=== PATIENT | male | born 1965 | race African-American/Black ===

== ENCOUNTER 2025-02-28 10:46 | Day surgery (SDC) | payer BC, SELFPAY ==
[2025-02-28] VITALS (7 sets, daily range): BP systolic 103–170; BP diastolic 68–88; PULSE 67–82; RESP 16–22; TEMP 36.9; O2SAT 100
--- NOTE | ~2025-02-28 | XR_ITS ---
Examination: XR chest 2V Clinical History: Retrosternal pain Comparison: None Technique: PA and Lateral Findings: Cardiomediastinal silhouette normal size and configuration. Lungs clear. No acute bony abnormality. IMPRESSION: 1. No acute cardiopulmonary findings. Reviewed, dictated and finalized at location R.
--- OUTSIDE RECORDS SUMMARY | 2025-02-28 11:14 | XMS_ITS | Clinical Summary ---
Author Organization [facility] Address [address] [place] [id number] Care Team Providers Care Executive Director Contract Shop Name Role Phone Andry Rooney MD Primary Care Provider Morales Prakash MD Unavailable [phone] Allergies No known active allergies Medications amLODIPine (NORVASC) 10 mg tabletIndications :Essential hypertension Take 1 tablet (10 mg total) by mouth daily 90 tablet 9 Active sildenafil, antihypertensive, (REVATIO) 20 mg tabletIndications :Pulmonary Arterial Hypertension Take 5 tablets (100 mg total) by mouth daily as needed (ED) 50 tablet 3 9 Active raNITIdine (ZANTAC) 150 mg tabletIndications :GERD without esophagitis Take 1 tablet (150 mg total) by mouth 2 (two) times a day 180 tablet 3 9 Active buPROPion XL (WELLBUTRIN XL) 150 mg 24 hr tabletIndications :Moderate episode of recurrent major depressive disorder (HCC) Take 1 tablet (150 mg total) by mouth every morning 30 tablet 1 9 Active ketorolac (ACULAR) 0.5 % ophthalmic solution 2 9 Active tobramycin-dexame thasone (TOBRADEX) ophthalmic solution 2 9 Active busPIRone (BUSPAR) 5 mg tabletIndications :Generalized Anxiety Disorder Take 1 tablet (5 mg total) by mouth 3 (three) times a day 90 tablet 9 Active Active Problems Problem Noted Date Diagnosed Date Cortical age-related cataract of both eyes 08/17 Assessment & Plan (10/18/2018 5:23 PM CDT): S/P surgery Assessment & Plan (08/17/2018 9:44 AM CDT): He is getting surgery soon Erectile dysfunction 08/17/2018 Assessment & Plan (08/17/2018 9:54 AM CDT): Start generic Sildenafil Moderate episode of recurrent major depressive d isorder 08/17/2018 Assessment & Plan (10/31/2018 10:57 AM CDT): ADvised to continue Wellbutrin; discussed has not taken full effect yet Add BUspar for anxiety Will extend FMLA with [employer] on 11/19 once paperwork received Assessment & Plan (10/18/2018 5:32 PM CDT): Mood is progressively worsening to the point of affecting daily function Will start Wellbutrin I advised him to start counseling as still dealing with the of his Recommend either EAP or SLBMI Will give 2 weeks off work [employer] 11/05 Will complete FMLA once received Assessment & Plan (08/17/2018 9:49 AM CDT): Worse since his in January Recommended Wellbutrin 1x daily-he declined but will consider in future Allergic rhinitis 07/20/2018 Gilbert's syndrome 07/20/2018 TMJ dysfunction 02/22/2017 Assessment & Plan (02/27/2017 3:40 PM CDT): History and examination today are consistent with right TMJ dysfunction. Patient is instructed on conservative therapies at this time, which include resting the joint by soft diet x 2 weeks, cold compress, change chewing pattern and consider dental guard at night to prevent clenching or bruxism. Follow up x 1 month. Sensorineural hearing loss ( SNHL) of right ear with restricted hearing of left ear 02/22/2017 Assessment & Plan (02/27/2017 3:43 PM CDT): Mr. De La Garza is a 51 year old male who presents with hearing loss in the right ear that he states has been present his entire life. He complains of new onset tinnitus in the right ear x 1 month. Patient denies any previous audiogram. Patient does not know any further history behind the hearing loss in his right ear. I recommend he complete an MRI of the IACs to rule out acoustic neuroma. We discussed setting up a hearing aid evaluation for CROS aid if patient desires. Patient is in agreement to complete MRI and then discuss hearing aid evaluation. Essential hypertension 07/13/2015 Overview (08/04/2016): Essential hypertension Assessment & Plan (10/18/2018 5:32 PM CDT): Will monitor Likely elevated from stress and having had surgery Assessment & Plan (08/17/2018 9:54 AM CDT): BP elevated Was on Norvasc in past-will resume Tobacco dependence syndrome 06/04/2012 Overview (08/04/2016): Tobacco abuse Assessment & Plan (08/17/2018 9:48 AM CDT): Patient was strongly encouraged to quit smoking. Serious health risks of continued smoking including multiple cancers, heart disease and lung disease were discussed with the patient. Patient is not ready to quit yet. Immunizations Immunization Administration Dates Next Due Influenza, Unspecified 08/17/2018(Deferred: Azul ent Refused) Td, adsorbed 03/10/2003 Tdap 06/04/2012 Surgical History Surgery Date Site/Laterality Comments EYE SURGERY CATARACT EXTRACTION, BILATERAL 05/01/2018 - 04/30/2019 Medical History Medical History Date Comments Hypertension Family History Medical History Relation Name Comments Heart disease Brother No Known Problems Father Breast cancer Mother Cancer, breast ; Relation Name Status Comments Brother Father Mother Social History Tobacco Use Types Packs/Day Years Used Date Smoking Tobacco: Some Days Smokeless Tobacco: Never Alcohol Use Standard Drinks/Week Comments Yes 20 (1 standard drink = 0.6 oz pu re alcohol) PHQ-2 Answer Date Recorded PHQ-2 Score 4 12/22/2018 Sex and Gender Information Value Date Recorded Sex Assigned at Not on file 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 Gender Identity Not on file Sexual Orientation Not on file Obstetrics History Last Filed Vital Signs Vital Sign Reading Time Taken Comments Blood Pressure 142/78 10/31/2018 10:24 AM CDT Pulse 86 10/31/2018 10:24 AM CDT Temperature 37.1 C (98.8 F) 10/18/2018 5:01 PM CDT Respiratory Rate 16 10/31/2018 10:24 AM CDT Oxygen Saturation 98% 10/31/2018 10:24 AM CDT Inhaled Oxygen Concentration - - Weight 75.8 kg (167 lb 2 oz) 10/31/2018 10:24 AM CDT Height 170.2 cm (5' 7) 10/31/2018 10:24 AM CDT Body Mass Index 26.18 10/31/2018 10:24 AM CDT Plan of Treatment Not on file Insurance PLAN Care Teams Executive Director Contract Shop Relationship Specialty Start Date End Date Andry Rooney MD [address] [facility] [address], [place] [id number] PCP - General Family Medicine 08/17/18 Morales Prakash MD [address] [facility] [address], [place] [address] Consulting Physician Ophthalmology 08/17/18
--- OUTSIDE RECORDS SUMMARY | 2025-02-28 11:14 | XMS_ITS | Clinical Summary ---
Author Organization [facility] Address [address] [place] [address] Care Team Providers Care Campaign Developer Name Role Phone Unavailable Primary Care Provider Unavailabl e Source Comments [facility],non-owned Affiliates and Associated Physician Practices is amultiple site organization consisting of ambulatory clinics and hospital sitesin [place], [place], [place] and [place]. This disclosure is being madepursuant to the Care Everywhere program and may not contain all information available regarding this patient. Last updated 18.[facility] Allergies No known active allergies Medications * Be aware that medications may not be up to date on this document. Alwaysverify current medications with the patient. naproxen (NAPROSYN) 500 MG tablet Take 1 tablet by mouth 2 times daily as needed for Pain 30 tablet 7 Active acetaminophen (TYLENOL) 325 MG tablet Take 325 mg by mouth every 4 hours as needed for Fever or Pain Maximum allowable Acetaminophen amount = 4 Grams (4000 mg) / 24 hours. Active Active Problems No known active problems Social History Tobacco Use Types Packs/Day Years Used Date Smoking Tobacco: Never Assessed Sex and Gender Information Value Date Recorded Sex Assigned at Not on file Legal Sex Male 5:42 PM CDT Gender Identity Not on file Sexual Orientation Not on file Last Filed Vital Signs Vital Sign Reading Time Taken Comments Blood Pressure 164/91 02/17/2017 5:55 PM CDT Pulse 65 02/17/2017 5:55 PM CDT Temperature 36.9 C (98.5 F) 02/17/2017 5:55 PM CDT Respiratory Rate 14 02/17/2017 5:55 PM CDT Oxygen Saturation 100% 02/17/2017 5:55 PM CDT Inhaled Oxygen Concentration - - Weight 81.6 kg (180 lb) 02/17/2017 5:55 PM CDT Height 170.2 cm (5' 7) 02/17/2017 5:55 PM CDT Body Mass Index 28.19 02/17/2017 5:55 PM CDT Plan of Treatment Health Maintenance Due Date Last Done Comments COLOGUARD (AGES 45-75) - COL ON CA SCREENING 1966 COLON MONITORING 1966 COLONOSCOPY - COLON CA SCREENING 1966 CT COLONOGRAPHY - COLON CA SCREENING 1966 Colorectal Cancer Screening 1966 FIT - COLON CA SCREENING 1966 FLEX SIG - COLON CA SCREENING 1966 LIPID TESTING 1966 HIV SCREENING 1981 HEPATITIS C SCREENING 10/04/1984 DTAP/TDAP/TD VACCINES (1 - Tdap) 1985 HEPATITIS B VACCINE (1 of 3 - 19+ 3-dose series) 1985 PNEUMOCOCCAL VACCINE 50+ (1 of 1 - PCV) 2016 ZOSTER VACCINE (1 of 2) 2016 DEPRESSION SCREENING 05/01/2024 COVID-19 VACCINE (1 - 2023-2 5 season) 2024 INFLUENZA VACCINE (#1) 2024 HIB VACCINE Aged Out No longer eligi ble based on patient's age to complete this topic HPV VACCINE Aged Out No longer eligi ble based on patient's age to complete this topic MENINGOCOCCAL (Group B) VACC INE SHARED DECISION-MAKING Aged Out No longer eligibl e based on patient's age to complete this topic MENINGOCOCCAL GROUPS A/C/Y/W VACCINE Aged Out No longer eligible b ased on patient's age to complete this topic Insurance [employer]
--- OUTSIDE RECORDS SUMMARY | 2025-02-28 11:14 | XMS_ITS | Clinical Summary ---
Author Organization [facility] Address [address] [place] [id number] Care Team Providers Care Life Insurance Sales Name Role Phone Unavailable Primary Care Provider Unavailabl e Encounters Date Type Department Care Team Description 12/31/2024 7:04 AM CDT - 12/31/2024 11:59 PM CDT Hospital Encounter [facility] [address] Pancho Garcia MD Discharge Disposition: Home or Self Care (Routine Discharge) from Last 3 Months Social History Tobacco Use Types Packs/Day Years Used Date Smoking Tobacco: Never Assessed Sex and Gender Information Value Date Recorded Sex Assigned at Male 01/02/2025 9:33 AM CDT Legal Sex Male 7:03 AM CDT Gender Identity Not on file Sexual Orientation Not on file Plan of Treatment Health Maintenance Due Date Last Done Comments Colorectal Cancer Screening Colonoscopy (10 Years) 1966 Annual Physical 1969 Hepatitis C 1984 DTaP, Tdap and Td Vaccines ( 1 - Tdap) 1985 Hepatitis B Vaccines (1 of 3 - 19+ 3-dose series) 1985 Pneumococcal Vaccine: 50+ Ye ars (1 of 1 - PCV) 2016 Zoster Vaccines (1 of 2) 2016 COVID-19 Vaccine ( - 2024-2 6 season) 2024 Influenza Adult (#1) 2025 Hepatitis A Vaccines Aged Out No long er eligible based on patient's age to complete this topic Meningococcal B Vaccine Aged Out No l onger eligible based on patient's age to complete this topic Meningococcal Vaccine Aged Out No christian austin eligible based on patient's age to complete this topic RSV Immunizations Under 20 Months Aged Out No longer eligible based on patient's age to complete this topic Procedures Procedure Name Priority Date/Time Associated Diagnosis Comments PATHOLOGY Routine 12/31/2024 12:00 AM CDT from Last 3 Months Results * Pathology (12/31/2024 12:00 AM CDT) PATHOLOGY [facility] Department of Laboratory Medicine [address] [place] [address] , extension [phone] Pathology Report Surgical Pathology Report Name: RAÚL DE LA GARZA Specimen #: [id number] Age: 6 1965 (Age: 59) Location: [facility] Sex: M Procedure Date: 12/31/2024 Hospital #: [id number] Date Received: 01/01/2025 Date Reported: 01/02/2025 Provider: PANCHO GARCIA Source: Skin, right scientology, biopsy Clinical History: Skin lesion right scientology. FINAL DIAGNOSIS: Skin, right scientology, punch biopsy: - Seborrheic keratosis. Gross Description: Received in formalin, labeled with a patient label and as right scientology is a 0.5 cm in diameter punch biopsy of granular dusky kemp-brown skin excised to a depth of up to 0.4 cm. The specimen is inked black, bisected, and entirely submitted in cassette 1 Gross examination (when applicable), interpretation, and sign out were performed at [facility], [address] [place] [address]. Electronically Signed Out TIERRA MONAE MD [facility] 12/31/2024 01/01/2025 12: 59 PM CDT Comment:Skin, right scientology, biopsy us Pancho Garcia MD PATHOLOGY/CYTOLOGY OR DERABLES Final Result [facility] [address] [place] [address], [id number] from Last 3 Months
--- OUTSIDE RECORDS SUMMARY | 2025-02-28 11:14 | XMS_ITS | Data Portability ---
Author Organization [place] [facility], Main Office Address [address] [place] [address] Assessment Encounter Date Assessment Date Assessment LastModified by Organization Details LastModified Time 12/31/2024 12/31/2024 Punch biopsy, 5mm, from irregular pigmented lesion of R hinduism area. Post procedural instructions provided. RTC in 7-10 d for suture removal, sooner if concerns arise. Not available 12/31/2024 12:35:03 01/07/2025 01/07/2025 status post punch biopsy right hinduism lesion. Benign pathology. No other issues. Suture removed. Follow-up p.r.n. Not available 01/07/2025 12:18:01 02/26/2025 02/26/2025 12/25/2024: PSA 2.44 Chol 214, LDL 108 WBC 4.0 01/15/2025: RPR +ve, T pallidum: Neg [email or web address] Not available 02/26/2025 11:51:41 Plan of Treatment Reminders Order Date Submit Date Provider Last Modified By Organization Details Last Modified Time Details Appointments Any 15 2024 11:30A M Jeniffer noonan MD Not available Not available Not available Lab noninvasi ve colorecta l cancer DNA + occult blood screening , QL, stool 2024 025 [employer], [address], [address], [place], [address], 02/26/2025 11:54:15 CBC w/ auto diff 2024 025 [email or web address] [facility] ([facility] [address] [place], [address], 02/26/2025 15:00:24 lipid panel, serum [address] (Lab), [address] [place], [address], 02/26/2025 15:00:24 CMP, serum or plasma [address] (Lab), [address] [place], [address], 02/26/2025 15:00:24 TSH, serum or plasma [address] (Lab), [address] [place], [address], 02/26/2025 15:00:24 PSA, total, serum or plasma 2024 025 [facility] (Lab), [address] [place], [address], 12/25/2024 20:34:41 noninvasi ve colorecta l cancer DNA + occult blood screening , QL, stool 2024 025 [email or web address] [address] [facility], [address], [address], [place], [address], 01/02/2025 17:12:30 hepatitis panel (A+B+C), acute, serum 2024 025 [facility], [address] [place], [address], 12/25/2024 20:08:36 CT + NG + TV, RNA, unspecifi ed specimen [address] Outpatient Lab, [address] [place], [address], 01/02/2025 17:12:17 HIV (1+2) Ab screen, serum [address] Outpatient Lab, [address] [place], [address], 01/02/2025 17:12:17 RPR (rapid plasma reagin), serum [address] Outpatient Lab, [address] [place], [address], 01/09/2025 15:57:12 hsv (1+2) igg Ab, serum [address] Outpatient Lab, [address] [place], [address], 01/02/2025 17:12:17 CBC w/ auto diff 2024 025 [facility] (Lab), [address] [place], [address], 12/25/2024 19:22:06 lipid panel, serum 2024 025 [facility] (Lab), [address] [place], [address], 12/25/2024 19:45:40 CMP, serum or plasma 2024 025 [facility] (Lab), [address] [place], [address], 12/25/2024 19:45:50 TSH, serum or plasma 2024 025 [facility] (Lab), [address] [place], [address], 12/25/2024 20:34:36 Referral infectiou s disease specialis t referral 2024 025 [email or web address] [facility], [address] [place], [address], 02/26/2025 12:30:01 cardiolog ist referral - Please call patient to schedule an appointme nt as soon as possible please. Thank you. 2024 [email or web address] Michael Chapa MD, [address], [address], [place], [address], 02/26/2025 12:30:00 psychiatr ist referral - Please call patient to schedule. 2024 ANDREW [facility], [address] [facility], [address], [place], [address], 02/26/2025 12:34:37 cardiolog ist referral - Please call patient to schedule an appointme nt as soon as possible please. Thank you. 2024 JOHNNIE Chapa MD, [address], [place], [address], 12/25/2024 15:31:35 general surgeon referral - Please call patient to schedule an appointme nt. Thank you. 2024 ANDREW Short MD, [address] [facility], [address], [place], [address], 12/26/2024 15:17:52 Procedures None recorded. Surgeries None recorded. Imaging None recorded. Medication Orders sertralin e 25 mg tablet 2024 SAWYER [id number], [address] [facility], [place], [place], [id number], 02/26/2025 11:54:17 Patient TargetsNo targets recorded. Patient InstructionsNo instructions recorded. Reason for Referral Link Assembler Referral for Es sential hypertension Please call patient to schedule an appointment as soon as possible please. Thank you. Referring Physician: Jeniffer Maria, Internal Medicine, Encounter Date: 12/25/2024 General Surgeon Referral for Skin lesion Please call patient to schedule an appointment. Thank you. Referring Physician: Jeniffer Maria Internal Medicine, Encounter Date: 12/25/2024 Link Assembler Referral for Es sential hypertension Please call patient to schedule an appointment as soon as possible please. Thank you. Referring Physician: Jeniffer Maria Internal Medicine, Encounter Date: 02/26/2025 Infectious Disease Specialis t Referral for Syphilis test finding Referring Physician: Jeniffer Maria Internal Medicine, Encounter Date: 02/26/2025 Psychiatrist Referral for Mi ld depression Please call patient to schedule. Referring Physician: Jeniffer Maria Internal Medicine, Encounter Date: 02/26/2025 Results Created Date Observation Date Name Description Value Unit Range Abnormal Flag Note LastModifiedBy Organization Detail LastModifiedTime 12/26/1912/25/2024 CBC/C OMPLE TE BLD COUNT W/DIF F white blood cells 4.0 x10'3 /uL 4.2-10 .8 low Not Available [facility] (Lab) [address] [place], [address], 12/25/2024 19:22:06 12/26/19 25 12/25/2024 CBC/C OMPLE TE BLD COUNT W/DIF F red blood cells 5.15 x10'6 /uL 4.10-5 .80 Not Available [facility] (Lab) [address] [place], [address], 12/25/2024 19:22:06 12/26/19 25 12/25/2024 CBC/C OMPLE TE BLD COUNT W/DIF F hemoglobin 14.9 g/dL 13.2-1 7.0 Not Available [facility] (Lab) [address] [place], [address], 12/25/2024 19:22:06 12/26/19 25 12/25/2024 CBC/C OMPLE TE BLD COUNT W/DIF F hematocrit 46.5 % 39.3-5 0.0 Not Available [facility] (Lab) [address] [place], [address], 12/25/2024 19:22:06 12/26/19 25 12/25/2024 CBC/C OMPLE TE BLD COUNT W/DIF F mean red cell volume 90.3 fL 80.0-9 7.0 Not Available [facility] (Lab) [address] [place], [address], 12/25/2024 19:22:06 12/26/19 25 12/25/2024 CBC/C OMPLE TE BLD COUNT W/DIF F mean red cell hemoglobin 28.9 pg 27.0-3 3.0 Not Available [facility] (Lab) [address] [place], [address], 12/25/2024 19:22:06 12/26/19 25 12/25/2024 CBC/C OMPLE TE BLD COUNT W/DIF F mean RBC HGB concentratio n 32.0 g/dL 31.0-3 6.0 Not Available [facility] (Lab) [address] [place], [address], 12/25/2024 19:22:06 12/26/19 25 12/25/2024 CBC/C OMPLE TE BLD COUNT W/DIF F red cell distribution width 14.9 % 11.8-1 5.5 Not Available [facility] (Lab) [address] [place], [address], 12/25/2024 19:22:06 12/26/19 25 12/25/2024 CBC/C OMPLE TE BLD COUNT W/DIF F platelets 298 x10'3 /uL 150-40 0 Not Available [facility] (Lab) [address] [place], [address], 12/25/2024 19:22:06 12/26/19 25 12/25/2024 CBC/C OMPLE TE BLD COUNT W/DIF F mean platelet volume 10.6 fL 9.0-12 .4 Not Available [facility] (Lab) [address] [place], [address], 12/25/2024 19:22:06 12/26/1912/25/2024 CBC/C OMPLE TE BLD COUNT W/DIF F neutrophils 38.2 % 39.0-7 2.0 low Not Available [facility] (Lab) [address] [place], [address], 12/25/2024 19:22:06 12/26/1912/25/2024 CBC/C OMPLE TE BLD COUNT W/DIF F lymphocytes 50.0 % 16.0-4 7.0 high Not Available [facility] (Lab) [address] [place], [address], 12/25/2024 19:22:06 12/26/1912/25/2024 CBC/C OMPLE TE BLD COUNT W/DIF F monocytes 10.9 % 5.0-12 .0 Not Available [facility] (Lab) [address] [place], [address], 12/25/2024 19:22:06 12/26/1912/25/2024 CBC/C OMPLE TE BLD COUNT W/DIF F eosinophils 0.2 % 1.0-7. 0 low Not Available [facility] (Lab) [address] [place], [address], 12/25/2024 19:22:06 12/26/1912/25/2024 CBC/C OMPLE TE BLD COUNT W/DIF F basophils 0.5 % 0.0-2. 0 Not Available [facility] (Lab) [address] [place], [address], 12/25/2024 19:22:06 12/26/1912/25/2024 CBC/C OMPLE TE BLD COUNT W/DIF F immature granulocytes 0.2 % 0.00-0 .50 Not Available [facility] (Lab) [address] [place], [address], 12/25/2024 19:22:06 12/26/1912/25/2024 CBC/C OMPLE TE BLD COUNT W/DIF F neutrophils, absolute count 1.53 x10'3 /uL 1.5-8. 0 Not Available [facility] (Lab) [address] [place], [address], 12/25/2024 19:22:06 12/26/1912/25/2024 CBC/C OMPLE TE BLD COUNT W/DIF F lymphocytes, absolute count 2.01 x10'3 /uL 1.07-3 .43 Not Available [facility] (Lab) [address] [place], [address], 12/25/2024 19:22:06 12/26/1912/25/2024 CBC/C OMPLE TE BLD COUNT W/DIF F monocytes, absolute count 0.44 x10'3 /uL 0.29-0 .99 Not Available [facility] (Lab) [address] [place], [address], 12/25/2024 19:22:06 12/26/1912/25/2024 CBC/C OMPLE TE BLD COUNT W/DIF F eosinophils, absolute count 0.01 x10'3 /uL 0.02-0 .53 low Not Available [facility] (Lab) [address] [place], [address], 12/25/2024 19:22:06 12/26/1912/25/2024 CBC/C OMPLE TE BLD COUNT W/DIF F basophils, absolute count 0.02 x10'3 /uL 0.01-0 .08 Not Available [facility] (Lab) [address] [place], [address], 12/25/2024 19:22:06 12/26/19 25 12/25/2024 CBC/C OMPLE TE BLD COUNT W/DIF F immature granulocytes ,absolute 0.01 x10'3 /uL 0.00-0 .05 Not Available [facility] (Lab) [address] [place], [address], 12/25/2024 19:22:06 12/26/19 25 12/25/2024 CBC/C OMPLE TE BLD COUNT W/DIF F nucleated red blood cells 0.0 % -0 Not Available [facility] (Lab) [address] [place], [address], 12/25/2024 19:22:06 12/26/19 25 12/25/2024 CBC/C OMPLE TE BLD COUNT W/DIF F NRBC# 0.00 x10'3 /uL Not Available [facility] (Lab) [address] [place], [address], 12/25/2024 19:22:06 12/26/1912/25/2024 LIPID PANEL cholesterol 214 mg/dL 140-19 9 high NIH MISSAEL NSUS RECOM MENDA TION FOR SAJAN STERO L: ADULT CHILD LOW RISK: <200 <170 BORDE RLINE : <200- 239 ----- HIGH RISK: >240 >200 Not Available [facility] (Lab) [address] [place], [address], 12/25/2024 19:45:40 12/26/1912/25/2024 LIPID PANEL triglyceride s 82 mg/dL 0-150 NIH MISSAEL NSUS REPOR T RECOM MENDA TION FOR TRIGL YCERI ALEJA: ADULT CHILD LOW RISK: <150 ----- BODER LINE: 150-1 99 ----- HIGH RISK: >200 ----- Not Available [facility] (Lab) [address] [place], [address], 12/25/2024 19:45:40 12/26/19 25 12/25/2024 LIPID PANEL HDL cholesterol 90 mg/dL 40- Not Available [facility] (Lab) [address] [place], [address], 12/25/2024 19:45:40 12/26/19 25 12/25/2024 LIPID PANEL LDL cholesterol, calculated 108 mg/dL 0-130 NIH MISSAEL NSUS REPOR T RECOM MENDA TIONS FOR LDL: ADULT CHILD LOW RISK <130 <110 (OPTI MAL LDL) <100 ----- BORDE RLINE : 130-1 59 ----- HIGH RISK: >160 >130 A TRIGL YCERI DE RESUL T >400 INVAL IDATE S THE CALCU LATIO N FOR LDL FRACT IONAT ION - THE LDL RESUL T WILL NOT BE REPOR DORA. Not Available [facility] (Lab) [address] [place], [address], 12/25/2024 19:45:40 12/26/1912/25/2024 COMPR EHENS SAMIRA METAB OLIC PANEL sodium 138 mmol/ L 137-14 5 Not Available [facility] (Lab) [address] [place], [address], 12/25/2024 19:45:50 12/26/1912/25/2024 COMPR EHENS SAMIRA METAB OLIC PANEL potassium 4.4 mmol/ L 3.5-5. 1 Not Available [facility] (Lab) [address] [place], [address], 12/25/2024 19:45:50 12/26/19 25 12/25/2024 COMPR EHENS SAMIRA METAB OLIC PANEL chloride 102 mmol/ L 98-107 Not Available [facility] (Lab) [address] [place], [address], 12/25/2024 19:45:50 12/26/19 25 12/25/2024 COMPR EHENS SAMIRA METAB OLIC PANEL carbon dioxide 28 mmol/ L 22-30 Not Available [facility] (Lab) [address] [place], [address], 12/25/2024 19:45:50 12/26/1912/25/2024 COMPR EHENS SAMIRA METAB OLIC PANEL anion gap 12.4 mmol/ L 14-22 low Not Available [facility] (Lab) [address] [place], [address], 12/25/2024 19:45:50 12/26/1912/25/2024 COMPR EHENS SAMIRA METAB OLIC PANEL glucose 97 mg/dL 70-99 Not Available [facility] (Lab) [address] [place], [address], 12/25/2024 19:45:50 12/26/19 25 12/25/2024 COMPR EHENS SAMIRA METAB OLIC PANEL BUN 10 mg/dL 8-19 Not Available [facility] (Lab) [address] [place], [address], 12/25/2024 19:45:50 12/26/1912/25/2024 COMPR EHENS SAMIRA METAB OLIC PANEL creatinine 1.00 mg/dL 0.66-1 .25 Not Available [facility] (Lab) [address] [place], [address], 12/25/2024 19:45:50 12/26/1912/25/2024 COMPR EHENS SAMIRA METAB OLIC PANEL GFR >60 Refer ence Range : [place] ge GFR Healt hy Adult : >60 mL/mi n/1.7 3 m2 Chron ic Kidne y Disea se: 15-60 mL/mi n/1.7 3 m2 Kidne y Failu re: <15/m L/min /1.73 m2 www.n iddk. nih.g ov The MDRD study equat ion has not been valid ated in child saqib <18 years of age; pregn ant women ; the elder ly >85 years of age; or in some racia l or ethni c subgr oups, such as Hispa nics. Outsi de the valid ated ochoa eters , estim ated GFR is less accur ate, requi ring clini nathan judgm ent on a case- by-ca se basis . Clini nathan inter preta tion for other races and ages must be made by the clini hugh. The MDRD study equat ion has not been valid ated for the evalu ation of serum creat inine relat ed to nutri rich l statu s or medic ation usage . For perso ns <18 years of age, a pedia tric GFR calcu lator is avail able on the [facility] websi te: https ://ww w.kid mary anne.o rg/pr ofess ional s/kdo qi/gf r_cal culat or Not Available [facility] (Lab) [address] [place], [address], 12/25/2024 19:45:50 12/26/19 25 12/25/2024 COMPR EHENS SAMIRA METAB OLIC PANEL alkaline phosphatase 57 U/L 38-126 Not Available [facility] (Lab) [address] [place], [address], 12/25/2024 19:45:50 12/26/19 25 12/25/2024 COMPR EHENS SAMIRA METAB OLIC PANEL alanine aminotransfe rase 24 U/L 0-50 Not Available [facility] (Lab) [address] [place], [address], 12/25/2024 19:45:50 12/26/19 25 12/25/2024 COMPR EHENS SAMIRA METAB OLIC PANEL aspartate aminotransfe rase 33 U/L 15-46 Not Available [facility] (Lab) [address] [place], [address], 12/25/2024 19:45:50 12/26/19 25 12/25/2024 COMPR EHENS SAMIRA METAB OLIC PANEL bilirubin, total 1.10 mg/dL 0.20-1 .30 Not Available [facility] (Lab) [address] [place], [address], 12/25/2024 19:45:50 12/26/1912/25/2024 COMPR EHENS SAMIRA METAB OLIC PANEL calcium 10.2 mg/dL 8.4-10 .2 Not Available [facility] (Lab) [address] [place], [address], 12/25/2024 19:45:50 12/26/1912/25/2024 COMPR EHENS SAMIRA METAB OLIC PANEL total protein 7.9 g/dL 6.3-8. 2 Not Available [facility] (Lab) [address] [place], [address], 12/25/2024 19:45:50 12/26/19 25 12/25/2024 COMPR EHENS SAMIRA METAB OLIC PANEL albumin 4.7 g/dL 3.4-5. 0 Not Available [facility] (Lab) [address] [place], [address], 12/25/2024 19:45:50 12/26/1912/25/2024 COMPR EHENS SAMIRA METAB OLIC PANEL globulin 3.2 g/dL 2.6-4. 2 Not Available [facility] (Lab) [address] [place], [address], 12/25/2024 19:45:50 12/26/1912/25/2024 COMPR EHENS SAMIRA METAB OLIC PANEL A/G ratio 1.5 ratio 1.0-2. 0 Not Available [facility] (Lab) [address] [place], [address], 12/25/2024 19:45:50 12/26/1912/25/2024 HEPAT ITIS ACUTE PANEL hepatitis A IgM antibody NON-RE ACTIVE non-re active For sampl es repor dora as Derek alvarez React samira for HAV IgM, it is recom lucy d a new speci men be obtai oziel in 2 weeks and retnancy dora. Not Available [facility] (Lab) [address] [place], [address], 12/25/2024 20:38:15 12/26/19 25 12/25/2024 HEPAT ITIS ACUTE PANEL hepatitis A virus signal/cutof 0.01 0.00-0 .79 Not Available [facility] (Lab) [address] [place], [address], 12/25/2024 20:38:15 12/26/19 25 12/25/2024 HEPAT ITIS ACUTE PANEL hepatitis B core IgM antibody NON-RE ACTIVE non-re active Not Available [facility] (Lab) [address] [place], [address], 12/25/2024 20:38:15 12/26/19 25 12/25/2024 HEPAT ITIS ACUTE PANEL HBV core IgM signal/cutof f 0.03 0.00-1 .10 Not Available [facility] (Lab) [address] [place], [address], 12/25/2024 20:38:15 12/26/19 25 12/25/2024 HEPAT ITIS ACUTE PANEL hepatitis B surface antigen NON-RE ACTIVE non-re active All speci mens react samira for Hepat itis B Surfa ce Antig en will refle x to refer [facility] lab confi rmato ry testi ng. Not Available [facility] (Lab) [address] [place], [address], 12/25/2024 20:38:15 12/26/19 25 12/25/2024 HEPAT ITIS ACUTE PANEL HBV surf.antigen signal/cutof f 0.07 0.00-0 .99 Not Available [facility] (Lab) [address] [place], [address], 12/25/2024 20:38:15 12/26/19 25 12/25/2024 HEPAT ITIS ACUTE PANEL hepatitis C antibody NON-RE ACTIVE non-re active All speci mens react samira for Hepat itis C Virus antib hao will refle x to PCR confi rmato ry testi ng. Pleas e allow 48-72 hours for resul ts. Not Available [facility] (Lab) [address] [place], [address], 12/25/2024 20:38:15 12/26/19 25 12/25/2024 HEPAT ITIS ACUTE PANEL hepatitis C virus signal/cutof 0.05 0.00-0 .99 Not Available [facility] (Lab) [address] [place], [address], 12/25/2024 20:38:15 12/26/19 25 12/25/2024 TSH W/REF JAMAL FT4 TSH with reflex free T4 2.100 uIU/m L 0.465- 4.680 Not Available [facility] (Lab) [address] [place], [address], 12/25/2024 20:34:36 12/26/19 25 12/25/2024 PSA SCREE N PSA medicare screen 2.44 NG/mL 0.00-4 .00 Not Available [facility] (Lab) [address] [place], [address], 12/25/2024 20:34:41 12/26/19 25 12/25/2024 TRICH OMONA S VAGIN CORNELL DNA, PCR trichomonas vaginalis DNA NOT DETECT ED not detect ed Not Available [facility] (Lab) [address] [place], [address], 12/25/2024 21:05:31 12/26/19 25 12/25/2024 CT/NG (CHLA MYDIA /NEIS SERIA ) DNA chlamydia trachomatis DNA NOT DETECT ED not detect ed Not Available [facility] (Lab) [address] [place], [address], 12/25/2024 21:21:48 12/26/19 25 12/25/2024 CT/NG (CHLA MYDIA /NEIS SERIA ) DNA neisseria gonorrhea DNA NOT DETECT ED not detect ed Not Available [facility] (Lab) [address] [place], [address], 12/25/2024 21:21:48 12/26/19 25 12/25/2024 HIV COMBO : HIV 1/2 AB,P2 4 AG HIV combo assay NON-RE ACTIVE nonrea ctive The HIV combo test scree ns for HIV-1 , HIV-2 , HIV p24 Ag, and HIV group O. Any react samira scree n resul t will be sent for PCR confi rmato ry testi ng. Not Available [facility] (Lab) [address] [place], [address], 12/25/2024 21:29:43 12/26/1912/25/2024 HIV COMBO : HIV 1/2 AB,P2 4 AG signal/cutof f 0.26 0.00-0 .99 Not Available [facility] (Lab) [address] [place], [address], 12/25/2024 21:29:43 12/26/19 25 12/27/2024 HERPE S/HSV 1 hsv type 1 IgG Non Reacti ve non reacti ve Ple ase note refer ence inter diana blackwell e HSV-1 IgG testi ng perfo rmed using the [employer] [facility] HSV- 1 IgG assay . Not Available [facility] (Lab) [address] [place], [address], 12/27/2024 08:12:41 12/26/1912/27/2024 HERPE S/HSV 1 hsv type 2 IgG Non Reacti ve non reacti ve Ple ase note refer ence inter diana blackwell e Curre nt guide lines and recom menda tions do not recom mend routi ne scree roger for HSV-2 in asymp tomat ic indiv idual s, inclu ding those that are pregn ant. The detec tion of HSV-2 IgG antib odies in a singl e sampl e indic ates previ ous expos ure to HSV-2 but does not give infor matio n as to the site of HSV infec tion or the timin g of expos ure. The predi ctive value of posit samira and negat samira resul ts depen ds on the popul ation 's preva lence and the prete st likel ihood of HSV-2 . HSV-2 IgG testi ng perfo rmed using the [employer] [facility] HSV-2 IgG assay . Perfo rmed at: - [facility] [place] [address] [facility] [employer] [place] [address] [facility] Lab Direc tor: Franklin turner PhD, Phone : [phone] Not Available [facility] (Lab) [address] [place] [address], [address], 12/27/2024 08:12:41 12/26/1912/27/2024 RPR WITH REFLE X TO RPR TITER RPR with reflex to RPR titer Reacti ve non reacti ve abnormal Perfo rmed at: - [facility] [place] [address] [facility] [place] [address] Lab Direc tor: Franklin turner PhD, Phone : [phone] Not Available [facility] (Lab) [address] [place], [address], 12/27/2024 13:11:11 12/26/19 25 12/27/2024 RPR WITH REFLE X TO RPR TITER RPR with reflex to RPR titer Reacti ve non reacti ve abnormal Perfo rmed at: - [facility] [place] [address] [facility] [employer] [facility], [place] [address] Lab Direc tor: Franklin turner PhD, Phone : [phone] Not Available [facility] (Lab) [address] [place], [address], 12/27/2024 13:11:12 12/26/19 25 12/27/2024 RPR WITH REFLE X TO RPR TITER RPR titer 1:1 titer nonrea <1:1 abnormal Perfo rmed at: [facility] [address] [facility] [place] [address] Lab Direc tor: Franklin turner PhD, Phone : [phone] Not Available [facility] (Lab) [address] [facility], [place], [address], 12/27/2024 13:11:12 Result Notes None recorded. Problems Name Problem SNOMED Code Status Onset Date Resolution Date Notes Provider Name and Address Organization Details Recorded Time Essential hypertension 15993412 Active 2024 Jeniffer noonan MD [address], [facility] [address], [place], [address], [facility] [place] [facility] 09:28:54 Skin lesion 37166189 Active 2024 Jeniffer noonan MD [address], [facility] [address], [place], [address], [facility] [place] 14:39:16 Smoker 14411146 Active 2024 Jeniffer noonan MD [address], [facility] [address], [place], [address], [facility] [place] 15:00:25 Hyperlipidemia 20275970 Active 2024 S[place], [place] [facility] [place] 15:19:05 Syphilis test finding 207617795 Active 2024 S[place] [facility] [place] 15:20:04 Seborrheic keratosis 030139033 Active 2024 Tree boone MD [address], [facility] [address], [place], [address], [facility] [place] 14:39:33 Mild depression 968523401 Active 2024 Jeniffer noonan MD [address], [address], [place], [address], [facility] 11:52:55 Problem Notes None recorded. Procedures Surgical History Date Name Laterality Status Provider Name and Address Organization Details Recorded Time 01/01/20 25 Excision Cyst Multilayer completed Tree paz MD [address], [address], [place], [address], [facility] 12/31/2024 12:34:20 cataract extraction and implantation of intraocular lens completed Dorothy Jeffers MA [facility] 12/25/2024 14:21:23 Imaging Results None recorded. Procedure Notes None recorded. Medical Equipment None Reported. Allergies No known drug allergies Medications Name Sig Start Date Stop Date Status Note LastModified by Organization Details LastModified Time amlodipine 10 mg tablet Take 1 tablet every day by oral route. active Not Available Not Available No t Available sertraline 25 mg tablet Take 1 tablet every day by oral route for 30 days. 025 active Not Available Not Available Not Avai lable Crestor 40 mg tablet Take 1 tablet every day by oral route. active Not Available Not Available Not Avai lable Vitals Date Recorded Body height Body mass index (BMI) Body weight Body temperature Heart rate Oxygen saturation Oxygen saturation in Arterial blood by Pulse oximetry Pain severity - 0-10 verbal numeric rating [Score] - Reported Systolic And Diastolic Provider Name and Address Organization Details Last Updated DateTime 5 172.72 cm 27.2 kg/m2 24298.0 3 g 98.3 [degF] 78 /min 100 % 100 % 0 154/86 mm[Hg] Dorothy Jeffers MA [facility] 14:23:14 Date Recorded Body height Body mass index (BMI) Body weight Body temperature Heart rate Respiratory rate Oxygen saturation Oxygen saturation in Arterial blood by Pulse oximetry Systolic And Diastolic Provider Name and Address Organization Details Last Updated DateTime 5 172.72 cm 27.2 kg/m2 11975.0 3 g 98.5 [degF] 76 /min 14 /min 99 % 99 % 152/82 mm[Hg] Shahana Anderson MA [place] [facility] 12:10:59 Date Recorded Body height Body mass index (BMI) Body weight Heart rate Oxygen saturation Oxygen saturation in Arterial blood by Pulse oximetry Systolic And Diastolic Provider Name and Address Organization Details Last Updated DateTime 172.72 cm 27.2 kg/m2 15905.0 3 g 78 /min 99 % 99 % 150/80 mm[Hg] SARA Bowling [facility] 11:44:11 Date Recorded Body height Body mass index (BMI) Body weight Body temperature Pain severity - 0-10 verbal numeric rating [Score] - Reported Heart rate Oxygen saturation Oxygen saturation in Arterial blood by Pulse oximetry Systolic And Diastolic Provider Name and Address Organization Details Last Updated DateTime 172.72 cm 27.8 kg/m2 66915.4 g 98.7 [degF] 0 83 /min 99 % 99 % 160/90 mm[Hg] Dorothy Jeffers MA [facility] 11:21:35 Social History Question Answer Notes LastModified by Organizat ion Details LastModified Time Tobacco Smoking Status Never Smoker Dorothy Jeffers MA [facility] 12/25/2024 14:18:20 What Is Your Level Of Caffeine Consumption? Heavy Information not available 12/25/2024 In The 14 Days Before Symptom Onset, Have You Had Close Contact With A Laboratory-confir med COVID-19 While That Case Was Ill? No Information not available 12/25/2024 In The 14 Days Before Symptom Onset, Have You Had Close Contact With A Person Who Is Under Investigation For COVID-19 While That Person Was Ill? No Information not available 12/25/2024 What Type Of Diet Are You Following? REGULAR Information not available 12/25/2024 Have There Been Any Changes To Your Family Or Social Situation? No Information no t available 12/25/2024 Do You Use Insect Repellent Routinely? No Information not available 12/25/2024 Where Do You Live? [facility] Information not available 12/25/2024 What Was The Date Of Your Most Recent Tobacco Screening? 02/26/2025 Information not available 02/26/2025 How Many Children Do You Have? 1 Information not available 12/25/2024 Do You Have Any Pets? No Information not available 12/25/2024 What Is Your Relationship Status? Single Information not available 12/25/2024 Do You Use Your Seat Belt Or Car Seat Routinely? Yes Information not available 12/25/2024 Do You Have Smoke And Carbon Monoxide Detectors In Your Home? Yes Information not available 12/25/2024 Are You Passively Exposed To Smoke? No Information no t available 12/25/2024 Are There Any Smokers In Your House? No Information not available 12/25/2024 Do You Use Sunscreen Routinely? No Information not available 12/25/2024 Have You Recently Traveled Abroad? No Information not available 12/25/2024 Have You Used IV Drugs? No Information not available 12/25/2024 Do You Have Any Dietary Restrictions? No Information not available 12/25/2024 Sex: Unknown Functional Status Question Answer Note LastModified by Organization Details LastModified Time Do you use any illicit or recreational drugs? Yes THC vape ocassionally Information not available 12/25/2024 Do you or have you ever used any other forms of tobacco or nicotine? Yes Currently smokes cigars. Information not available 12/25/2024 What is your level of alcohol consumption? Occasional Information not available 12/25/2024 Do you or have you ever used smokeless tobacco? Never used smokeless tobacco Information not available 12/25/2024 Are you currently employed? No Information not available 12/25/2024 Do you or have you ever used e-cigarettes or vape? Current user of electronic cigarettes Information not available 12/25/2024 Mental Status Question Answer Note LastModified by Organization D etails LastModified Time Do you feel stressed (tense, restless, nervous, or anxious, or unable to sleep at night)? [id number] [email or web address] Information not available 12/25/2024 Family History Relationship Description Onset Age of this Age Resolved Age Notes LastModified by Organization Details LastModified Time Unspecified Relation Malignant neoplastic disease [email or web address] Not available 2024 14:15:38 Mother Malignant neoplasm of breast [email or web address] Not available 2024 14:15:58 Medical History No medical history recorded. Immunizations Vaccine Type Date Status Note Provider Nam e and Address Organization Details Recorded Time COVID-19, mRNA, LNP-S, PF, 100 mcg/0.5mL dose or 50 mcg/0.25mL dose 10/01/2020 completed Not Available [facility] 11:02:44 COVID-19, mRNA, LNP-S, PF, 100 mcg/0.5mL dose or 50 mcg/0.25mL dose 10/29/2020 completed Not Available [facility] 11:02:44 COVID-19, mRNA, LNP-S, PF, 100 mcg/0.5mL dose or 50 mcg/0.25mL dose 05/11/2021 completed Not Available [facility] 11:02:44 Past Encounters Encounter ID Performer Location Encounter Start Date Encounter Closed Date Diagnosis/Indication Diagnosis SNOMED-CT Code Diagnosis ICD10 Code Diagnosis IMO Codes Diagnosis Note [id number] Jeniffer smith MD [facility] [address] [place] [address] 12/25/2024 14:05:21 12/25/2024 14:48:29 Screening due 894137818 Z13.9 29067294 C-scope: States that he did do this 3 years ago but is unsure of the date, he is willing to get the cologuard done Get yearly flu shotGet tdap if not doneShould do penumovax vaccineGet shingrixSh ould do COVID 19 vaccine, follow all CDC guidelines RTC in 3 months, do labs, ER if worse, he did verbalize his understand ing of the above Screening for malignant neoplasm of colon 135056191 Z12.11 610197 Essential hypertension 40706420 I10 01275 On amlodipine Readily admits to being non compliant, advised to take his medication dailyGet labs Screening for malignant neoplasm of prostate 343025070 Z12.5 965127 Venereal d isease screening 219652381 Z11.3 1426856 Skin lesion 54943969 L98 .9 05631 Dark irregular shaped mole noted on the R hinduism areaRefer to Dr Busby Smoker 68979333 F17.200 884911 Rarely smokes cigarsAdvi sed to cut back and stopUS AAA at age 66 years [id number] Tree nunez MD [facility] General Surgery [address] [address] 12/31/2024 12:05:04 12/31/2024 12:35:08 Skin lesion 40652059 L98.9 23171 hinduism right [id number] Tree nunez MD [facility] General Surgery [address] [address] 01/07/2025 11:40:59 01/07/2025 12:28:50 Seborrheic keratosis 015951074 L82.1 09553 Removal of sutures done 2500145782 41110 Z48.02 3159707 [id number] Jeniffer smith MD [facility] Primary Care [address] [place] [address] 02/26/2025 11:01:10 02/26/2025 11:55:30 Screening due 243912917 Z13.9 65677888 C-scope: States that he did do this 3 years ago but is unsure of the date, he is willing to get the cologuard done Get yearly flu shotGet tdap if not doneShould do penumovax vaccineGet shingrixSh ould do COVID 19 vaccine, follow all CDC guidelines RTC in 1 month, do labs, ER if worse, he did verbalize his understand ing of the above Screening for malignant neoplasm of colon 434177439 Z12.11 957468 Essential hypertension 84203619 I10 82382 On amlodipine Readily admits to being non compliant, advised to take his medication dailyGet labsNeeds to see cardiology ! Skin lesion 25238246 L98 .9 11611 Dark irregular shaped mole noted on the R hinduism areaRefer to Dr Qi Busby last OV 01/07/2025 Smoker 95190538 F17.200 136259 Rarely smokes cigarsAdvi sed to cut back and stopUS AAA at age 66 years Syphilis test finding 40 0206287 A53.0 2954656393 T pallidum was negativeNe eds to see IDSee caseStates that [facility] is not taking his insurance so will refer to U Mild depression 85338947 3 F32.A 410577 States that his ex-GF has left himNot suicidal or homicidalA greeable to get on sertraline and all side effects explained to himAlso refer to psychiatry RTC in one monthER if any symptoms worsen, he is very appreciati ve to this plan of care Hyperlipidemia 55780175 E78.5 04685728 On crestor 40mg dailyGet labs Health Concerns Section Related Observation LastModified by Organization Detai ls LastModified Time None Recorded Concern Status LastModified by Organization Details LastModified Time None Recorded Advance Directives Directive None Recorded Payers Insurance Date Sequence Insurance Name Policy Number Policy Echeverria Covered Member ID Echeverria Member ID Guarantor Name 02/28/2025 1 [facility] - DOS ON OR AFTER 2024 (MEDICAID REPLACEMENT - HMO) [id number] Raúl De La Garza [id number] Raúl Frederic 12/31/2024 1 [facility] (MEDICAID REPLACEMENT - HMO) Raúl De La Garza [id number] Raúl Frederic Notes Date Note Type Note Provider Name and Address Organization Details Recorded Time 12/25/2024 text/html OV 12/25/2024:Here to establish care Present Hx:HTN Here to discuss aboveHe would like to get his labs and also test for STD as he did have sex 2 weeks ago and states that the 'condom broke', denies any complaints, no d/c from penis or rash or fevers or chills Jeniffer Maria MD [address] [facility], [facility] [address], [place], [address], [place] [facility] 12/25/2024 15:03:33 12/31/2024 text/html Patient presents to clinic to discuss skin spot of R hinduism area. States it has been there for 30-40 years, does bleed occasionally, but has not changed recently. New PCP was concerned it may be malignant so recommended he be seen here. Tree Gupta MD [address] [facility], [address], [place], [address], [facility] [employer] [facility] 01/01/2025 16:16:40 01/07/2025 text/html no complaints Tree Gupta MD [address] [facility], [address], [place], [address], [facility] [employer] [facility] 01/09/2025 14:39:48 02/26/2025 text/html OV 12/25/2024:Here to establish care Present Hx:HTN Here to discuss aboveHe would like to get his labs and also test for STD as he did have sex 2 weeks ago and states that the 'condom broke', denies any complaints, no d/c from penis or rash or fevers or chills OV 02/26/2025: Here for his f/u aptHe is doing well, he has yet to see cardiologistAlso c/o depression as his Ex GF and him do not talk anymore, he is not suicidal or homicidalNo new labs Jeniffer Maria MD [address] [facility], [address], [place], [address], [facility] 02/26/2025 12:00:13
--- NOTE | 2025-02-28 12:20 | ED.NAVMDI ---
HPI - Nausea/Vomiting/Diarrhea General Chief complaint: Nausea/Vomiting/Diarrhea Stated complaint: difficulty eating since yesterday Time Seen by Provider: 02/28/25 12:12 Source: patient Mode of arrival: ambulatory Limitations: no limitations History of Present Illness HPI Narrative: 59 years old male complaining of feeling clogged in the center of his chest unable to swallow solid or liquid over the last 48 hours last meal was chicken wings 48 hours ago. Patient reports having similar symptoms years ago lasted for few hours and resolved spontaneously. History of hypertension, hyperlipidemia started on medication month ago and depression. Patient drinks alcohol smokes cigarettes and uses marijuana daily Related Data Allergies Allergy/AdvReac Type Severity Reaction Status Date / Time No Known Allergies Allergy Verified 02/28/25 14:14 Review of Systems Review of Systems: All systems reviewed & are unremarkable except as noted in HPI and below PMFSH Past Medical History Medical History (Updated 02/28/25 @ 21:53 by Haim Hernandez MD) Food impaction of esophagus Hypertension GERD (gastroesophageal reflux disease) Allergies Surgical History Surgical History H/O eye surgery Family History Family History Mother Asthma Bone cancer Heart problem Cerebrovascular accident Sibling Asthma Bone cancer Hypertension Depression Anxiety Heart problem Social History Social History Smoking packs per day: 0.5 Smoking cigarettes per day: 10.0 Smoking status: Current every day smoker Tobacco type: cigarettes Alcohol intake: current Alcohol use details: 2 drinks per day Substance use: never Substance use type: does not use Do You Feel Safe in your Home?: Yes Lack of Transportation: No Lack of Food: Never True Current Housing: I Have Housing Concerned About Future Housing: No Difficulty Paying Gas/Electric Bills: No Difficulty Paying for Meds: No Living arrangements: alone Gender identity (if verbalized by the patient): Male Exam Narrative: General appearance: Well-developed, well-nourished Skin: Normal color Head: Normocephalic, nontraumatic Eyes: Clear conjunctiva ENT: Oropharynx normal, ears normal, nose normal Neck: Supple, nontender Chest and respiratory: Airway patent, no respiratory distress, no accessory muscle use Heart: Regular rate/rhythm Abdomen: Soft, nontender, no organomegaly, quiet bowel sounds Vascular: Normal peripheral pulses, normal capillary refill. Musculoskeletal: Normal range of motion, nontender back Neurologic: Alert and oriented ?3, VEHICLE CARE SPECIALIST is normal as tested, no gross motor deficit Course Consultations Consultation #1: DR BHATT Date: 02/28/25 Time: 13:31 Vital Signs Vital signs: Vital Signs Temperature 36.9 C 02/28/25 10:52 Pulse Rate 80 02/28/25 10:52 Respiratory Rate 16 02/28/25 10:52 Blood Pressure 170/88 H 02/28/25 10:52 Pulse Oximetry 100 02/28/25 10:52 Temperature 36.9 C 02/28/25 14:16 Pulse Rate 70 02/28/25 15:32 Respiratory Rate 22 H 02/28/25 15:32 Blood Pressure 151/78 H 02/28/25 15:32 Pulse Oximetry 100 02/28/25 15:32 Oxygen Delivery Room Air 02/28/25 15:32 MDM - Nausea/Vomiting/Diarrhea MDM Narrative Medical decision making narrative: Patient presents with questionable esophageal food obstruction 48 hours ago Vital signs showing blood pressure 170/88 otherwise within normal limit. Patient unable to keep his medication down. Steak house syndrome is my concern. Blood workup includes CBC, CMP showed no significant abnormality Chest x-ray showed no acute abnormality The plan to take patient to the GI lab for EGD. Discussed with GI Differential Diagnosis Differential diagnosis: Likely dehydration and other ( ABOVE) Medical Records Attestation: I reviewed the patient's medical records. Lab Data Attestation: I reviewed the patient's lab results. 02/28/25 13:29 02/28/25 13:29 Labs: Lab Results 02/28/25 Range/Units 13:29 WBC 3.7 L (4.5-10.0) K/mm3 RBC 4.81 (4.6-6.20) M/mm3 Hgb 14.0 (14.0-18.0) g/dL Hct 43.6 (42.0-52.0) % MCV 90.6 (80-100) fl MCH 29.1 (26-34) pg MCHC 32.1 (32-36) g/dl RDW 15.9 H (11.5-14.5) % Plt Count 267 (150-375) k/mm3 MPV 10.1 (7.4-10.4) fl Immature Gran % (Auto) 0.3 (0-0.5) % Neut % (Auto) 49.5 (45.5-73.1) % Lymph % (Auto) 38.2 (18.3-44.2) % [place] % (Auto) 10.7 H (2.6-8.5) % Eos % (Auto) 0.5 (0-4.4) % Baso % (Auto) 0.8 (0.2-1.2) % Lymph # (Auto) 1.43 (0.9-3.2) K/mm3 [place] # (Auto) 0.4 (0.1-0.6) K/mm3 Eos # (Auto) 0.0 (0-0.3) K/mm3 Baso # (Auto) 0.0 (0.0-0.1) K/mm3 Abs Immat Gran (auto) 0.01 (0.00-0.031) K/mm3 Absolute Neuts (auto) 1.9 (1.3-6.7) K/mm3 Absolute Nucleated RBC 0.000 (0.0-0.012) K/mm3 Nucleated RBC % 0.0 (0.0-0.2) % Sodium 137 (137-145) mmol/L Potassium 4.0 (3.4-5.0) mmol/L Chloride 103 (98-107) mmol/L Carbon Dioxide 29 (22-30) mmol/L Anion Gap 5 (4-12) mmol/L BUN 13 (9-20) mg/dL Creatinine 0.91 (0.7-1.3) mg/dL Estim Creat Clear Calc 75 ml/min Estimated GFR > 60 (59 - ) Glucose 97 (65-110) mg/dL Calcium 9.5 (8.4-10.2) mg/dL Total Bilirubin 1.9 H (0.2-1.3) mg/dL AST 29 (17-59) U/L ALT 18 (6-50) U/L Alkaline Phosphatase 43 (38-126) U/L Total Protein 7.9 (6.3-8.2) g/dL Albumin 4.6 (3.5-5.1) g/dL Imaging Data Radiologist's impression: Impressions Chest X-Ray 02/28/25 13:21 IMPRESSION: 1. No acute cardiopulmonary findings. Critical Care Time Critical Care Time Critical Care Time: No Discharge Plan Discharge Clinical Impression: Esophageal obstruction due to food impaction Patient Disposition: Still a Patient Condition: Guarded Prognosis
--- OUTSIDE RECORDS SUMMARY | 2025-02-28 12:45 | XMS_ITS | Clinical Summary ---
Author Organization [facility] Address [address] [facility] [place] [address] Care Team Providers Care City Assessor Name Role Phone Unavailable Primary Care Provider Unavailabl e Source Comments [facility],non-owned Affiliates and Associated Physician Practices is amultiple site organization consisting of ambulatory clinics and hospital sitesin [place], [place], [place] and [place]. This disclosure is being madepursuant to the Care Everywhere program and may not contain all information available regarding this patient. Last updated 18.[facility] [employer] Allergies No known active allergies Medications * [...]
--- OUTSIDE RECORDS SUMMARY | 2025-02-28 12:45 | XMS_ITS | Clinical Summary ---
Author Organization [facility] Address [address] [place] [address] Care Team Providers Care Structural Architect Name Role Phone Unavailable Primary Care Provider Unavailabl e Encounters Date Type Department Care Team Description 12/31/2024 7:04 AM CDT - 12/31/2024 11:59 PM CDT Hospital Encounter [facility] [address] Pancho Garcia MD Discharge Disposition: Home or [...] * Pathology (12/31/2024 12:00 AM CDT) PATHOLOGY [facility] Department of Laboratory Medicine [address] [place] [address] , extension [phone] Pathology Report Surgical Pathology Report Name: RAÚL DE LA GARZA Specimen #: [id number] Age: 6 1965 (Age: 59) Location: [facility] Sex: M Procedure Date: 12/31/2024 Hospital #: [id number] Date Received: 01/01/2025 Date Reported: 01/02/2025 Provider: PANCHO GARCIA Source: Skin, right zoroastrianism, biopsy Clinical History: Skin lesion right zoroastrianism. FINAL DIAGNOSIS: Skin, right zoroastrianism, punch biopsy: - Seborrheic keratosis. Gross Description: Received in formalin, labeled with a patient label and as right zoroastrianism is a 0.5 cm in diameter punch biopsy of granular dusky kemp-brown skin excised to a depth of up to 0.4 cm. The specimen is inked black, bisected, and entirely submitted in cassette 1 Gross examination (when applicable), interpretation, and sign out were performed at [facility], [address] [place] [address]. Electronically Signed Out TIERRA MONAE MD [facility] 12/31/2024 01/01/2025 12: 59 PM CDT Comment:Skin, right zoroastrianism, biopsy us Pancho Garcia MD PATHOLOGY/CYTOLOGY OR DERABLES Final Result [facility] [address] [place] [address], [phone] from Last 3 Months
--- OUTSIDE RECORDS SUMMARY | 2025-02-28 12:45 | XMS_ITS | Clinical Summary ---
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
[2025-02-28] MEDS: PANTOPRAZOLE SODIUM IV 40 MG VIAL IV PUSH (13:29)
[2025-02-28] MEDS: SODIUM CHLORIDE 0.9% IV 1,000 ML 999 ML IV CONT (13:30)
[2025-02-28 13:46] LABS: Hematocrit 43.6 % (42.0-52.0); Hemoglobin 14.0 g/dL (14.0-18.0); Immature Granulocyte Percent A 0.3 % (0-0.5); Lymphocytes Absolute Auto 1.43 K/mm3 (0.9-3.2); Mean Corpuscular HGB Conc 32.1 g/dl (32-36); Mean Corpuscular Hemoglobin 29.1 pg (26-34); Mean Corpuscular Volume 90.6 fl (80-100); Nucleated Red Blood Cells Absolute Auto 0.000 K/mm3 (0.0-0.012); Nucleated Red Blood Cells Perc 0.0 % (0.0-0.2); Platelet Count Result 267 k/mm3 (150-375); Red Blood Count 4.81 M/mm3 (4.6-6.20); White Blood Count 3.7 K/mm3 (4.5-10.0)
[2025-02-28 14:03] LABS: Alanine Aminotransferase 18 U/L (6-50); Albumin Level 4.6 g/dL (3.5-5.1); Alkaline Phosphatase 43 U/L (38-126); Anion Gap 5 mmol/L (4-12); Aspartate Amino Transferase 29 U/L (17-59); Bilirubin,Total 1.9 mg/dL (0.2-1.3); Blood Urea Nitrogen 13 mg/dL (9-20); Calcium 9.5 mg/dL (8.4-10.2); Carbon Dioxide 29 mmol/L (22-30); Chloride 103 mmol/L (98-107); Estimated CRCL calculation 75 ml/min; Estimated Glomerular Filt Rate > 60; Glucose 97 mg/dL (65-110); Potassium 4.0 mmol/L (3.4-5.0); Sodium 137 mmol/L (137-145); Total Protein 7.9 g/dL (6.3-8.2)
--- OUTSIDE RECORDS SUMMARY | 2025-02-28 14:04 | XMS_ITS | Clinical Summary ---
Author Organization [facility] Address [address] [place] [address] Care Team Providers Care Offset Second Press Operator Name Role Phone Andry Rooney MD Primary Care Provider Morales Prakash MD Unavailable [phone] Allergies No known active allergies Medications amLODIPine [...] on file Legal Sex Male 12:[address] Gender Identity Not on file Sexual Orientation [...] Not on file Insurance PLAN Care Teams Offset Second Press Operator Relationship Specialty Start Date End Date Andry Rooney MD [address] [facility] [address], [place] [phone] PCP - General Family Medicine 08/17/18 Morales Prakash MD [address] [facility] [address], [place] [address] Consulting Physician Ophthalmology 08/17/18
--- OUTSIDE RECORDS SUMMARY | 2025-02-28 14:04 | XMS_ITS | Clinical Summary ---
Author Organization [facility] Address [address] [place] [address] Care Team Providers Care Superintendent Custodian Janitor Name Role Phone Unavailable Primary Care Provider Unavailabl e Encounters Date Type Department Care Team Description 12/31/2024 7:04 AM CDT - 12/31/2024 11:59 PM CDT Hospital Encounter [facility] [address] Pancho Garcia MD Discharge Disposition: Home or [...] * Pathology (12/31/2024 12:00 AM CDT) PATHOLOGY [facility] Department of Laboratory Medicine [address] [place] [address] , extension [phone] Pathology Report Surgical Pathology Report Name: RAÚL DE LA GARZA Specimen #: [id number] Age: 6 1965 (Age: 59) Location: [facility] Sex: M Procedure Date: 12/31/2024 Hospital #: [id number] Date Received: 01/01/2025 Date Reported: 01/02/2025 Provider: PANCHO GARCIA Source: Skin, right amish, biopsy Clinical History: Skin lesion right amish. FINAL DIAGNOSIS: Skin, right amish, punch biopsy: - Seborrheic keratosis. Gross Description: Received in formalin, labeled with a patient label and as right amish is a 0.5 cm in diameter punch biopsy of granular dusky kemp-brown skin excised to a depth of up to 0.4 cm. The specimen is inked black, bisected, and entirely submitted in cassette 1 Gross examination (when applicable), interpretation, and sign out were performed at [facility], [address] [place] [address]. Electronically Signed Out TIERRA MONAE MD [facility] 12/31/2024 01/01/2025 12: 59 PM CDT Comment:Skin, right amish, biopsy us Pancho Garcia MD PATHOLOGY/CYTOLOGY OR DERABLES Final Result [facility] [address] [place] [address], [phone] from Last 3 Months
--- OUTSIDE RECORDS SUMMARY | 2025-02-28 14:05 | XMS_ITS | Clinical Summary ---
Author Organization [facility] Address [address] [facility] [place] [address] Care Team Providers Care Packaging Technician Name Role Phone Unavailable Primary Care Provider Unavailabl e Source Comments [facility],non-owned Affiliates and Associated Physician Practices is amultiple site organization consisting of ambulatory clinics and hospital sitesin [place], [place], [place] and [place]. This disclosure is being madepursuant to the Care Everywhere program and may not contain all information available regarding this patient. Last updated 18.[facility] [employer] Allergies No known active allergies Medications * [...]
[2025-02-28] MEDS: LACTATED RINGERS 1,000 ML 150 ML IV CONT (14:21)
--- NOTE | 2025-02-28 14:28 | WPDANESEPPF ---
Anes - Initial Pre Proc Eval Procedure: Operation Date: 02/28/25 15:30 Proposed Procedures p Esophagogastroduodenoscopy EGD - Smith Bonner MD Date/Time: 02/28/25 14:28 Surgeon: Smith Bonner MD Pre Op Diagnosis: difficulty eating since yesterday Patient Data Age: 59 Gender: M Height: 1.73 m Weight: 80.9 kg Last Vital Signs Temp 36.9 C 02/28/25 14:16 Pulse 69 02/28/25 14:16 Resp 20 02/28/25 14:16 BP 166/88 H 02/28/25 14:16 Pulse Ox 100 02/28/25 14:16 O2 Del Method Room Air 02/28/25 14:16 Allergies Allergy/AdvReac Type Severity Reaction Status Date / Time No Known Allergies Allergy Verified 02/28/25 14:14 Home Medications ?Medication ?Instructions ?Recorded ?Confirmed ?Type amlodipine 10 mg tablet 10 mg PO DAILY #30 tabs 11/11/24 02/28/25 Rx Laboratory Tests 02/28/25 13:29 WBC 3.7 L K/mm3 (4.5-10.0) RBC 4.81 M/mm3 (4.6-6.20) Hgb 14.0 g/dL (14.0-18.0) Hct 43.6 % (42.0-52.0) MCV 90.6 fl (80-100) MCH 29.1 pg (26-34) MCHC 32.1 g/dl (32-36) RDW 15.9 H % (11.5-14.5) Plt Count 267 k/mm3 (150-375) MPV 10.1 fl (7.4-10.4) Immature Gran % (Auto) 0.3 % (0-0.5) Neut % (Auto) 49.5 % (45.5-73.1) Lymph % (Auto) 38.2 % (18.3-44.2) [place] % (Auto) 10.7 H % (2.6-8.5) Eos % (Auto) 0.5 % (0-4.4) Baso % (Auto) 0.8 % (0.2-1.2) Lymph # (Auto) 1.43 K/mm3 (0.9-3.2) [place] # (Auto) 0.4 K/mm3 (0.1-0.6) Eos # (Auto) 0.0 K/mm3 (0-0.3) Baso # (Auto) 0.0 K/mm3 (0.0-0.1) Abs Immat Gran (auto) 0.01 K/mm3 (0.00-0.031) Absolute Neuts (auto) 1.9 K/mm3 (1.3-6.7) Absolute Nucleated RBC 0.000 K/mm3 (0.0-0.012) Nucleated RBC % 0.0 % (0.0-0.2) Sodium 137 mmol/L (137-145) Potassium 4.0 mmol/L (3.4-5.0) Chloride 103 mmol/L (98-107) Carbon Dioxide 29 mmol/L (22-30) Anion Gap 5 mmol/L (4-12) BUN 13 mg/dL (9-20) Creatinine 0.91 mg/dL (0.7-1.3) Estim Creat Clear Calc 75 ml/min Estimated GFR > 60 (59 - ) Glucose 97 mg/dL (65-110) Calcium 9.5 mg/dL (8.4-10.2) Total Bilirubin 1.9 H mg/dL (0.2-1.3) AST 29 U/L (17-59) ALT 18 U/L (6-50) Alkaline Phosphatase 43 U/L (38-126) Total Protein 7.9 g/dL (6.3-8.2) Albumin 4.6 g/dL (3.5-5.1) Patient hx anesthesia problems: none Family hx anesthesia problems: none Results Review: All pre-operative results and documents have been reviewed as part of the pre-operative evaluation. [facility] Past Medical History Medical History Hypertension GERD (gastroesophageal reflux disease) Allergies Surgical History Surgical History H/O eye surgery Family History Family History Mother Asthma Bone cancer Heart problem Cerebrovascular accident Sibling Asthma Bone cancer Hypertension Depression Anxiety Heart problem Social History Social History Smoking packs per day: 0.5 Smoking cigarettes per day: 10.0 Smoking status: Current every day smoker Tobacco type: cigarettes Alcohol intake: current Alcohol use details: 2 drinks per day Substance use: never Substance use type: does not use Do You Feel Safe in your Home?: Yes Lack of Transportation: No Lack of Food: Never True Current Housing: I Have Housing Concerned About Future Housing: No Difficulty Paying Gas/Electric Bills: No Difficulty Paying for Meds: No Living arrangements: alone Gender identity (if verbalized by the patient): Male Anes - Eval Final PreProcedure Day of Procedure 02/28/25 14:28 Patient weight: overweight Heart: regular rate and rhythm Lungs: clear to auscultation Airway: Mallampati scale class II Neurological: alert and oriented Last oral intake: >/= 8 hours ASA classification: III Emergent: no Anesthetic plan: proceed Anesthesia type and monitoring: general and standard monitoring Results Review: All pre-operative results and documents have been reviewed as part of the pre-operative evaluation. Informed Consent: The patient's anesthetic plan and its attendant risks and benefits were discussed with the patient/family/POA. Questions were solicited and answers provided to the satisfaction of the patient/family/POA.
--- NOTE | 2025-02-28 14:30 | PM.HPGS ---
History of Present Illness History of Present Illness Consent: Risks, benefits, and alternatives have been discussed and questions answered. Patient agrees to proceed with procedure. Chief complaint: difficulty eating since yesterday Narrative: Raúl De La Garza is a 59 year old male unable to eat after had chicken wings yesterday, never had egd, had similar episode in the past but never required intervention Review of Systems Review of Systems: All systems reviewed & are unremarkable except as noted in HPI and below PMFSH Past Medical History Medical History (Updated 02/28/25 @ 14:31 by Smith Bonner MD) Food impaction of esophagus Hypertension GERD (gastroesophageal reflux disease) Allergies Surgical History Surgical History H/O eye surgery Family History Family History Mother Asthma Bone cancer Heart problem Cerebrovascular accident Sibling Asthma Bone cancer Hypertension Depression Anxiety Heart problem Social History Social History Smoking packs per day: 0.5 Smoking cigarettes per day: 10.0 Smoking status: Current every day smoker Tobacco type: cigarettes Alcohol intake: current Alcohol use details: 2 drinks per day Substance use: never Substance use type: does not use Do You Feel Safe in your Home?: Yes Lack of Transportation: No Lack of Food: Never True Current Housing: I Have Housing Concerned About Future Housing: No Difficulty Paying Gas/Electric Bills: No Difficulty Paying for Meds: No Living arrangements: alone Gender identity (if verbalized by the patient): Male Meds Home Medications and Allergies Home Medications ?Medication ?Instructions ?Recorded ?Confirmed ?Type amlodipine 10 mg tablet 10 mg PO DAILY #30 tabs 11/11/24 02/28/25 Rx Allergies Allergy/AdvReac Type Severity Reaction Status Date / Time No Known Allergies Allergy Verified 02/28/25 14:14 Vital Signs Vital Signs - 24 hr 02/28/25 10:52 02/28/25 14:16 Temperature 98.4 F 98.5 F Pulse Rate 80 69 Respiratory Rate 16 20 Blood Pressure 170/88 H 166/88 H Pulse Oximetry 100 100 Oxygen Delivery Room Air Exam Const: General: cooperative and well developed Orientation/consciousness: patient oriented x3 GI: GI Palp: No abdominal tenderness Auscultation: normal bowel sounds Skin: General skin exam: normal color Assessment and Plan Assessment and plan (1) Food impaction of esophagus: Code(s): T18.128A - Food in esophagus causing other injury, initial encounter; W44.F3XA - Food entering into or through a natural orifice, initial encounter Status: Acute Assessment and Plan: urgent egd
== END 2025-02-28 15:54 | disposition home or self-care (01) ==
LOC: ANHED 13:51 → ANHENDO 14:02
PROVIDERS: Emergency Provider Emergency Medicine; Visit Provider Internal Medicine Gastroenterology
PROC: 0DJ08ZZ Inspection of Upper Intestinal Tract, Via Natural or Artificial Opening Endoscopic (ICD-10-PCS; CPT 43247; principal; 2025-02-28 15:30)
DX: T18.128A Food in esophagus causing other injury, initial encounter (principal); K22.2 Esophageal obstruction; W44.F3XA Food entering into or through a natural orifice, initial encounter; I10 Essential (primary) hypertension; E78.5 Hyperlipidemia, unspecified; F32.A Depression, unspecified; F17.210 Nicotine dependence, cigarettes, uncomplicated; F12.90 Cannabis use, unspecified, uncomplicated
CPT/HCPCS: 43247; 36415; 71046; 80053; 85025; J2003; J2470; J2704; J7030; J7120

== ENCOUNTER 2025-04-01 21:45 | Day surgery (SDC) | payer BC, SELFPAY ==
[2025-04-01] VITALS (7 sets, daily range): BP systolic 130–152; BP diastolic 73–83; PULSE 81–96; RESP 16–20; TEMP 36.8–37.1; O2SAT 99–100
--- NOTE | ~2025-04-01 | XR_ITS ---
EXAMINATION: XR soft tissue neck, 04/01/2025 23:59 CIRCULATION LIBRARIAN HISTORY: food bolus COMPARISON: No comparisons available. Technique: 2 views obtained. Findings: There is no radiopaque foreign body identified. No distention of the pharynx or hypopharynx. No thickening of the epiglottis. Moderate degenerative changes noted of C4-5. IMPRESSION: No acute process Reviewed, dictated and finalized at location P. ULATION LIBRARIAN IMPRESSION: No acute process
--- NOTE | ~2025-04-01 | XR_ITS ---
Examination: XR chest 1V Clinical History: food bolus Comparison: None Technique: Portable AP Findings: Heart size normal. Lungs clear. No acute bony abnormality. IMPRESSION: 1. No acute cardiopulmonary findings given portable technique. Reviewed, dictated and finalized at location R. SING ROOM PORTER
--- OUTSIDE RECORDS SUMMARY | 2025-04-01 21:47 | XMS_ITS | Continuity of Care Document ---
Author Organization [place] [facility] [employer] [facility] Primary Care Dorothy Address [address] [place] [address] Assessment Encounter Date Assessment Date Assessment LastModified by Organization Details LastModified Time 03/12/2025 03/12/2025 12/25/2024: PSA 2.44 Chol 214, LDL 108 WBC 4.0 01/15/2025: RPR +ve, T pallidum: Neg [email or web address] Not available 03/19/2025 18:29:02 Plan of Treatment Reminders Order Date Submit Date Provider Last Modified By Organization Details Last Modified Time Details Appointments New Patient 60 2025 10:00A M Payton Woodard NP Not available Not available Not available New Patient 15 2025 01:15P Javed Green MD Not available Not available Not available Any 15 2025 09:45A Javed noonan MD Not available Not available Not available Lab noninvasi ve colorecta l cancer DNA + occult blood screening , QL, stool 2024 025 [facility], [address], [address], [place], [address], 03/12/2025 11:33:00 CBC w/ auto diff 2024 025 [email or web address] [facility] (Lab), [address] [place], [address], 03/31/2025 12:01:10 lipid panel, serum 2024 025 [email or web address] [facility] (Lab), [address] [place], [address], 03/31/2025 12:01:10 CMP, serum or plasma [address] (Lab), [address] [place], [address], 03/31/2025 12:01:11 TSH, serum or plasma [address] (Lab), [address] [place], [address], 03/31/2025 12:01:11 Referral gastroent erologist referral - Please call patient to schedule. 2024 025 [email or web address] Jan Green MD, [address] [facility], [address], [place], [address], 03/20/2025 10:01:01 infectiou s disease specialis t referral 2024 025 [email or web address] [facility], [address] [place], [address], 03/13/2025 10:10:01 cardiolog ist referral - Please call patient to schedule an appointme nt as soon as possible please. Thank you. 2024 025 [email or web address] Michael Chapa MD, [address], [place] [address], [address], 03/13/2025 10:10:00 psychiatr ist referral - Please call patient to schedule. 2024 025 [email or web address] [facility], [address] [facility], [address], [place], [address], 03/13/2025 10:10:18 Procedures None recorded. Surgeries None recorded. Imaging None recorded. Medication Orders sertralin e 25 mg tablet 2024 025 [id number], [address] , [place], [place], [id number], 03/12/2025 11:32:55 Patient TargetsNo targets recorded. Patient InstructionsNo instructions recorded. Reason for Referral Ammonia Box Tender Referral for Es sential hypertension Please call patient to schedule an appointment as soon as possible please. Thank you. Referring Physician: Jeniffer Maria, Internal Medicine, Encounter Date: 03/12/2025 Infectious Disease Specialis t Referral for Syphilis test finding Referring Physician: Jeniffer Maria, Internal Medicine, Encounter Date: 03/12/2025 Psychiatrist Referral for Mi ld depression Please call patient to schedule. Referring Physician: Jeniffer Maria, Internal Medicine, Encounter Date: 03/12/2025 Broker Referral for Dysphagia Please call patient to schedule. Referring Physician: Jeniffer Maria Internal Medicine, Encounter Date: 03/12/2025 Problems Name Problem SNOMED Code Status Onset Date Resolution Date Notes Provider Name and Address Organization Details Recorded Time Essential hypertension 42526753 Active 2024 Jeniffer noonan MD [address], [place], [address], [employer] 09:28:54 Skin lesion 18271802 Active 2024 Jeniffer noonan MD [address], [place], [address], [employer] 5 14:39:16 Smoker 94628750 Active 2024 Jeniffer noonan MD [address], [place], [address], [employer] 15:00:25 Hyperlipidemia 08578404 Active 2024 SARA Salinas null, [employer] 15:19:05 Syphilis test finding 375439240 Active 2024 SARA Salinas null, [facility] [employer] 15:20:04 Seborrheic keratosis 513599544 Active 2024 Tree boone MD [address], [address], [place], [address], [employer] 14:39:33 Mild depression 535809185 Active 2024 Jeniffer noonan MD [address], [address], [place], [address], [employer] 11:52:55 Dysphagia 34981571 Active 2024 Jeniffer noonan MD [address], [address], [place], [address], [employer] [facility] [employer] 11:05:08 Problem Notes None recorded. Procedures Surgical History Date Name Laterality Status Provider Name and Address Organization Details Recorded Time 01/01/20 25 Excision Cyst Multilayer completed Tree paz MD [address], [facility] [address], [place], [address], [employer] 12/31/2024 12:34:20 cataract extraction and implantation of intraocular lens completed Dorothy Jeffers MA [employer] [facility] [employer] 12/25/2024 14:21:23 Imaging Results None recorded. Procedure [...] 1 tablet every day by oral route. 025 active Not Available Not Available Not Avai lable Vitals Date Recorded Body height Body mass index (BMI) Body weight Body temperature Pain severity - 0-10 verbal numeric rating [Score] - Reported Heart rate Oxygen saturation Systolic And Diastolic Provider Name and Address Organization Details Last Updated DateTime 172.72 cm 26.9 kg/m2 50059.8 5 g 98.2 [degF] 0 75 /min 99 % 150/76 mm[Hg] Dorothy Jeffers MA [employer] 10:47:33 Social History Question Answer Notes LastModified by Organizat ion Details LastModified Time Tobacco Smoking Status Never Smoker Dorothy Jeffers MA null, [employer] [facility] [employer] 12/25/2024 14:18:20 What Is Your Level Of [...] not available 12/25/2024 Where [facility] You Live? [facility] Information not available 12/25/2024 What Was The Date Of Your Most Recent Tobacco Screening? 03/12/2025 Information not available 03/12/2025 How Many Children Do You Have? 1 [...] anxious, or unable to sleep at night)? [id number] Information not available 12/25/2024 Family History Relationship [...] 50 mcg/0.25mL dose 10/01/2020 completed Not Available [facility] 11:03:47 COVID-19, mRNA, LNP-S, PF, 100 mcg/0.5mL dose or 50 mcg/0.25mL dose 10/29/2020 completed Not Available [facility] 11:03:47 COVID-19, mRNA, LNP-S, PF, 100 mcg/0.5mL dose or 50 mcg/0.25mL dose 05/11/2021 completed Not Available [facility] 11:03:47 Past Encounters Encounter ID Performer Location Encounter Start Date Encounter Closed Date Diagnosis/Indication Diagnosis SNOMED-CT Code Diagnosis ICD10 Code Diagnosis IMO Codes Diagnosis Note [id number] Jeniffer smith MD [facility] [address] [place] [address] 02/26/2025 11:01:10 02/26/2025 11:55:30 Screening due 083266265 Z13.9 68077371 C-scope: States that he did do this [...] above Screening for malignant neoplasm of colon 912572863 Z12.11 326819 Essential hypertension 53066180 I10 69729 On amlodipine Readily admits to being non compliant, advised to take his medication dailyGet labsNeeds to see cardiology ! Skin lesion 63259546 L98 .9 17616 Dark irregular shaped mole noted on the R anabaptist areaRefer to Dr Qi Busby last OV 01/07/2025 Smoker 68083958 F17.200 174414 Rarely smokes cigarsAdvi sed to cut back and stopUS AAA at age 66 years Syphilis test finding 40 5807409 A53.0 7839937366 T pallidum was negativeNe eds to see IDSee caseStates that [facility] is not taking his insurance so will refer to [facility] Mild depression 96770389 3 F32.A 534894 States that his ex-GF has left himNot suicidal or homicidalA greeable to get on sertraline and all side effects explained to himAlso refer to psychiatry RTC in one monthER if any symptoms worsen, he is very appreciati ve to this plan of care Hyperlipidemia 77817662 E78.5 47337619 On crestor 40mg dailyGet labs [id number] Jeniffer smith MD [facility] [address] [facility] [place] [address] 03/12/2025 10:33:32 03/12/2025 11:47:40 Screening due 476972544 Z13.9 09475328 C-scope: States that he did do this 3 years ago but is unsure of the date, he is willing to get the cologuard done Get yearly flu shotGet tdap if not doneShould do penumovax vaccineGet shingrixSh ould do COVID 19 vaccine, follow all CDC guidelines RTC in4 months, do labs, ER if worse, he did verbalize his understand ing of the above Screening for malignant neoplasm of colon 913235844 Z12.11 311073 Essential hypertension 69077838 I10 42940 On amlodipine Readily admits to being non compliant, advised to take his medication dailyGet labsNeeds to see cardiology ! Skin lesion 00399970 L98 .9 05014 Dark irregular shaped mole noted on the R anabaptist areaRefer to Dr Qi Busby last OV 01/07/2025 Smoker 41424094 F17.200 149925 Rarely smokes cigarsAdvi sed to cut back and stopUS AAA at age 66 years Syphilis test finding 40 6306294 A53.0 7813542915 T pallidum was negativeNe eds to see IDSee caseStates that [facility] is not taking his insurance so will refer to [facility] Mild depression 85997586 3 F32.A 754349 States that his ex-GF has left himNot suicidal or homicidalA greeable to get on sertraline and all side effects explained to himAlso refer to psychiatry RTC in one monthER if any symptoms worsen, he is very appreciati ve to this plan of care Hyperlipidemia 47478208 E78.5 75766036 On crestor 40mg dailyGet labs Dysphagia 69467856 R13.1 0 52057169 S/p EGD 02/28/2025 : Noted to have retained food and Padmini's ringDr Quan mendosa does need another EGD but was told by Dr Grimes that he does not take his insurance so refer to DR Green Health Concerns Section Related Observation LastModified by Organization Detai ls LastModified Time None Recorded Concern Status LastModified by Organization Details LastModified Time None Recorded Payers Encounter Date Sequence Insurance Name Policy Number Policy Echeverria Covered Member ID Echeverria Member ID Guarantor Name 03/12/2025 1 [place] [facility] - DOS ON OR AFTER 2024 (MEDICAID REPLACEMENT - HMO) [id number] Raúl De La Garza [id number] Raúl De La Garza Notes Date Note Type Note Provider Name and Address Organization Details Recorded Time 03/12/2025 text/html OV 12/25/2024:Here to establish care Present [...] is not suicidal or homicidalNo new labs OV 03/12/2025: Here for his f/u apt after his EGD that showed a ring and retained food Jeniffer Maria MD [address], [address], [place], [address], [place] [facility] [email or web address] 03/19/2025 18:29:57
--- OUTSIDE RECORDS SUMMARY | 2025-04-01 21:47 | XMS_ITS | Continuity of Care Document ---
Author Organization [place] - [facility] General Surgery Address [address] [facility] [place] [address] Assessment Encounter Date Assessment Date Assessment LastModified by Organization Details LastModified Time 12/31/2024 12/31/2024 Punch biopsy, 5mm, from irregular pigmented lesion of R [place] area. Post procedural instructions provided. RTC in 7-10 d for suture removal, sooner if concerns arise. [email or web address] Not available 12/31/2024 12:35:03 Plan of Treatment Reminders Order Date Submit Date Provider Last Modified By Organization Details Last Modified Time Details Appointments New Patient 60 2025 10:00A M Payton Woodard NP Not available Not available Not available New Patient 15 2025 01:15P Javed Green MD Not available Not available Not available Any 15 2025 09:45A M Jeniffer noonan MD Not available Not available Not available Lab None recorded . Referral None recorded . Procedures None recorded . Surgeries None recorded . Imaging None recorded . Medication Orders None recorded . Patient TargetsNo targets recorded. Patient InstructionsNo instructions recorded. Reason for Referral None Reported. Results Created Date Observation Date Name Description Value Unit Range Abnormal Flag Note LastModifiedBy Organization Detail LastModifiedTime 12/26/1912/25/2024 CBC/C OMPLE TE BLD COUNT W/DIF F white blood cells 4.0 x10'3 /uL 4.2-10 .8 low Not Available [facility] (Lab) [address] [place], [address], 12/25/2024 19:22:06 12/26/1912/25/2024 CBC/C OMPLE TE BLD COUNT W/DIF F red blood cells 5.15 x10'6 /uL 4.10-5 .80 Not Available [facility] (Lab) [address] [place], [address], 12/25/2024 19:22:06 12/26/19 25 12/25/2024 CBC/C OMPLE TE BLD COUNT W/DIF F hemoglobin 14.9 g/dL 13.2-1 7.0 Not Available [facility] (Lab) [address] [place], [address], 12/25/2024 19:22:06 12/26/1912/25/2024 CBC/C OMPLE TE BLD COUNT W/DIF F hematocrit 46.5 % 39.3-5 0.0 Not Available [facility] (Lab) [address] [place], [address], 12/25/2024 19:22:06 12/26/1912/25/2024 CBC/C OMPLE TE BLD COUNT W/DIF F mean red cell volume 90.3 fL 80.0-9 7.0 Not Available [facility] (Lab) [address] [place], [address], 12/25/2024 19:22:06 12/26/1912/25/2024 CBC/C OMPLE TE BLD COUNT W/DIF F mean red cell hemoglobin 28.9 pg 27.0-3 3.0 Not Available [facility] (Lab) [address] [place], [address], 12/25/2024 19:22:06 12/26/1912/25/2024 CBC/C OMPLE TE BLD COUNT W/DIF F mean RBC HGB concentratio n 32.0 g/dL 31.0-3 6.0 Not Available [facility] (Lab) [address] [place], [address], 12/25/2024 19:22:06 12/26/1912/25/2024 CBC/C OMPLE TE BLD COUNT W/DIF F red cell distribution width 14.9 % 11.8-1 5.5 Not Available [facility] (Lab) [address] [place], [address], 12/25/2024 19:22:06 12/26/1912/25/2024 CBC/C OMPLE TE BLD COUNT W/DIF F platelets 298 x10'3 /uL 150-40 0 Not Available [facility] (Lab) [address] [place], [address], 12/25/2024 19:22:06 12/26/1912/25/2024 CBC/C OMPLE TE BLD COUNT W/DIF F mean platelet volume 10.6 fL 9.0-12 .4 Not Available [facility] (Lab) [address] [place], [address], 12/25/2024 19:22:06 12/26/1912/25/2024 CBC/C OMPLE TE BLD COUNT W/DIF F neutrophils 38.2 % 39.0-7 2.0 low Not Available [facility] (Lab) [address] [place], [address], 12/25/2024 19:22:06 12/26/1912/25/2024 CBC/C OMPLE TE BLD COUNT W/DIF F lymphocytes 50.0 % 16.0-4 7.0 high Not Available [facility] (Lab) [address] [place], [address], 12/25/2024 19:22:06 12/26/1912/25/2024 CBC/C OMPLE TE BLD COUNT W/DIF F monocytes 10.9 % 5.0-12 .0 Not Available [facility] (Lab) [address] [place], [address], 12/25/2024 19:22:06 12/26/1912/25/2024 CBC/C OMPLE TE BLD COUNT W/DIF F eosinophils 0.2 % 1.0-7. 0 low Not Available [facility] (Lab) [address] [place], [address], 12/25/2024 19:22:06 12/26/1912/25/2024 CBC/C OMPLE TE BLD COUNT W/DIF F basophils 0.5 % 0.0-2. 0 Not Available [facility] (Lab) [address] [place], [address], 12/25/2024 19:22:06 12/26/1912/25/2024 CBC/C OMPLE TE BLD COUNT W/DIF F immature granulocytes 0.2 % 0.00-0 .50 Not Available [facility] (Lab) [address] [place], [address], 12/25/2024 19:22:06 12/26/1912/25/2024 CBC/C OMPLE TE BLD COUNT W/DIF F neutrophils, absolute count 1.53 x10'3 /uL 1.5-8. 0 Not Available [facility] (Lab) [address] [place], [address], 12/25/2024 19:22:06 12/26/1912/25/2024 CBC/C OMPLE TE BLD COUNT W/DIF F lymphocytes, absolute count 2.01 x10'3 /uL 1.07-3 .43 Not Available [facility] (Lab) [address] [place], [address], 12/25/2024 19:22:06 12/26/1912/25/2024 CBC/C OMPLE TE BLD COUNT W/DIF F monocytes, absolute count 0.44 x10'3 /uL 0.29-0 .99 Not Available [facility] (Lab) [address] [place], [address], 12/25/2024 19:22:06 12/26/1912/25/2024 CBC/C OMPLE TE BLD COUNT W/DIF F eosinophils, absolute count 0.01 x10'3 /uL 0.02-0 .53 low Not Available [facility] (Lab) [address] [place], [address], 12/25/2024 19:22:06 12/26/19 25 12/25/2024 CBC/C OMPLE TE BLD COUNT W/DIF F basophils, absolute count 0.02 x10'3 /uL 0.01-0 .08 Not Available [facility] (Lab) [address] [place], [address], 12/25/2024 19:22:06 12/26/19 25 12/25/2024 CBC/C OMPLE TE BLD COUNT W/DIF F immature granulocytes ,absolute 0.01 x10'3 /uL 0.00-0 .05 Not Available [facility] (Lab) [address] [place], [address], 12/25/2024 19:22:06 12/26/19 25 12/25/2024 CBC/C OMPLE TE BLD COUNT W/DIF F nucleated red blood cells 0.0 % -0 Not Available [facility] (Lab) [address] [place], [address], 12/25/2024 19:22:06 12/26/19 25 12/25/2024 CBC/C OMPLE TE BLD COUNT W/DIF F NRBC# 0.00 x10'3 /uL Not Available [facility] (Lab) [address] [place], [address], 12/25/2024 19:22:06 12/26/19 25 12/25/2024 LIPID PANEL cholesterol 214 mg/dL 140-19 9 high NIH MISSAEL NSUS RECOM MENDA TION FOR SAJAN STERO L: ADULT CHILD LOW RISK: <200 <170 BORDE RLINE : <200- 239 ----- HIGH RISK: >240 >200 Not Available [facility] (Lab) [address] [place], [address], 12/25/2024 19:45:40 12/26/1912/25/2024 LIPID PANEL triglyceride s 82 mg/dL 0-150 NIH MISSAEL NSUS REPOR T RECOM MENDA TION FOR TRIGL YCERI ALEJA: ADULT CHILD LOW RISK: <150 ----- BODER LINE: 150-1 99 ----- HIGH RISK: >200 ----- Not Available [facility] (Lab) [address] [place], [address], 12/25/2024 19:45:40 12/26/1912/25/2024 LIPID PANEL HDL cholesterol 90 mg/dL 40- Not Available [facility] (Lab) [address] [place], [address], 12/25/2024 19:45:40 12/26/1912/25/2024 LIPID PANEL LDL cholesterol, calculated 108 mg/dL [...] WILL NOT BE REPOR DORA. Not Available [facility] (Lab) [address] [place], [address], 12/25/2024 19:45:40 12/26/1912/25/2024 COMPR EHENS SAMIRA METAB OLIC PANEL sodium 138 mmol/ L 137-14 5 Not Available [facility] (Lab) [address] [place], [address], 12/25/2024 19:45:50 12/26/19 25 12/25/2024 COMPR EHENS SAMIRA METAB OLIC PANEL potassium 4.4 mmol/ L 3.5-5. 1 Not Available [facility] (Lab) [address] [place], [address], 12/25/2024 19:45:50 12/26/19 25 12/25/2024 COMPR EHENS SAMIRA METAB OLIC PANEL chloride 102 mmol/ L 98-107 Not Available [facility] (Lab) [address] [place], [address], 12/25/2024 19:45:50 12/26/19 25 12/25/2024 COMPR EHENS SAMIRA METAB OLIC PANEL carbon dioxide 28 mmol/ L 22-30 Not Available [facility] (Lab) [address] [place], [address], 12/25/2024 19:45:50 12/26/19 25 12/25/2024 COMPR EHENS SAMIRA METAB OLIC PANEL anion gap 12.4 mmol/ L 14-22 low Not Available [facility] (Lab) [address] [place], [address], 12/25/2024 19:45:50 12/26/19 25 12/25/2024 COMPR EHENS SAMIRA METAB OLIC PANEL glucose 97 mg/dL 70-99 Not Available [facility] (Lab) [address] [place], [address], 12/25/2024 19:45:50 12/26/19 25 12/25/2024 COMPR EHENS SAMIRA METAB OLIC PANEL BUN 10 mg/dL 8-19 Not Available [facility] (Lab) [address] [place], [address], 12/25/2024 19:45:50 12/26/19 25 12/25/2024 COMPR EHENS SAMIRA METAB OLIC PANEL creatinine 1.00 mg/dL 0.66-1 .25 Not Available [facility] (Lab) [address] [place], [address], 12/25/2024 19:45:50 12/26/1912/25/2024 COMPR EHENS SAMIRA METAB OLIC PANEL GFR >60 Refer ence Range : [place] ge GFR Healt hy Adult : >60 [...] calcu lator is avail able on the [facility] websi te: [email or web address] :[email or web address] [email or web address].[email or web address] [email or web address] rg/pr ofess ional s/kdo qi/gf r_cal culat or Not Available [facility] (Lab) [address] [place], [address], 12/25/2024 19:45:50 12/26/1912/25/2024 COMPR EHENS SAMIRA METAB OLIC PANEL alkaline phosphatase 57 U/L 38-126 Not Available [facility] (Lab) [address] [place], [address], 12/25/2024 19:45:50 12/26/1912/25/2024 COMPR EHENS SAMIRA METAB OLIC PANEL alanine aminotransfe rase 24 U/L 0-50 Not Available [facility] (Lab) [address] [place], [address], 12/25/2024 19:45:50 12/26/19 25 12/25/2024 COMPR EHENS SAMIRA METAB OLIC PANEL aspartate aminotransfe rase 33 U/L 15-46 Not Available [facility] (Lab) [address] [place], [address], 12/25/2024 19:45:50 12/26/19 25 12/25/2024 COMPR EHENS SAMIRA METAB OLIC PANEL bilirubin, total 1.10 mg/dL 0.20-1 .30 Not Available [facility] (Lab) [address] [place], [address], 12/25/2024 19:45:50 12/26/19 25 12/25/2024 COMPR EHENS SAMIRA METAB OLIC PANEL calcium 10.2 mg/dL 8.4-10 .2 Not Available [facility] (Lab) [address] [place], [address], 12/25/2024 19:45:50 12/26/19 25 12/25/2024 COMPR EHENS SAMIRA METAB OLIC PANEL total protein 7.9 g/dL 6.3-8. 2 Not Available [facility] (Lab) [address] [place], [address], 12/25/2024 19:45:50 12/26/19 25 12/25/2024 COMPR EHENS SAMIRA METAB OLIC PANEL albumin 4.7 g/dL 3.4-5. 0 Not Available [facility] (Lab) [address] [place], [address], 12/25/2024 19:45:50 12/26/19 25 12/25/2024 COMPR EHENS SAMIRA METAB OLIC PANEL globulin 3.2 g/dL 2.6-4. 2 Not Available [facility] (Lab) [address] [place], [address], 12/25/2024 19:45:50 12/26/19 25 12/25/2024 COMPR EHENS SAMIRA METAB OLIC PANEL A/G ratio 1.5 ratio 1.0-2. 0 Not Available [facility] (Lab) [address] [place], [address], 12/25/2024 19:45:50 12/26/19 25 12/25/2024 HEPAT ITIS ACUTE PANEL hepatitis A IgM antibody NON-RE ACTIVE non-re active For sampl es repor dora as Borde rline React samira for HAV IgM, it is recom lucy d a new speci men be obtai oziel in 2 weeks and retes dora. Not Available [facility] (Lab) [address] [place], [address], 12/25/2024 20:38:15 12/26/19 25 12/25/2024 HEPAT ITIS ACUTE PANEL hepatitis A virus signal/cutof 0.01 0.00-0 .79 Not Available [facility] (Lab) [address] [place], [address], 12/25/2024 20:38:15 12/26/19 25 12/25/2024 HEPAT ITIS ACUTE PANEL hepatitis B core IgM antibody NON-RE ACTIVE non-re active Not Available [facility] (Lab) [address] [place], [address], 12/25/2024 20:38:15 12/26/19 25 12/25/2024 HEPAT ITIS ACUTE PANEL HBV core IgM signal/cutof f 0.03 0.00-1 .10 Not Available [facility] (Lab) [address] [place], [address], 12/25/2024 20:38:15 12/26/19 25 12/25/2024 HEPAT ITIS ACUTE PANEL hepatitis B surface antigen NON-RE ACTIVE non-re active All speci mens react samira for Hepat itis B Surfa ce Antig en will refle x to refer ral lab confi rmato ry testi ng. Not Available [facility] (Lab) [address] [place], [address], 12/25/2024 20:38:15 12/26/19 25 12/25/2024 HEPAT ITIS ACUTE PANEL HBV surf.antigen signal/cutof f 0.07 0.00-0 .99 Not Available [facility] (Lab) [address] [place], [address], 12/25/2024 20:38:15 12/26/19 25 12/25/2024 HEPAT ITIS ACUTE PANEL hepatitis C antibody NON-RE ACTIVE non-re active All speci mens react samira for Hepat itis C Virus antib hao will refle x to PCR confi rmato ry testi ng. Pleas e allow 48-72 hours for resul ts. Not Available [facility] (Lab) [address] [place], [address], 12/25/2024 20:38:15 12/26/19 25 12/25/2024 HEPAT ITIS ACUTE PANEL hepatitis C virus signal/cutof 0.05 0.00-0 .99 Not Available [facility] (Lab) [address] [place], [address], 12/25/2024 20:38:15 12/26/19 25 12/25/2024 TSH W/REF JAMAL FT4 TSH with reflex free T4 2.100 uIU/m L 0.465- 4.680 Not Available [facility] (Lab) [address] [place], [address], 12/25/2024 20:34:36 12/26/19 25 12/25/2024 PSA SCREE N PSA medicare screen 2.44 NG/mL 0.00-4 .00 Not Available [facility] (Lab) [address] [place], [address], 12/25/2024 20:34:41 12/26/19 25 12/25/2024 TRICH OMONA S VAGIN CORNELL DNA, PCR trichomonas vaginalis DNA NOT DETECT ED not detect ed Not Available [facility] (Lab) [address] [place], [address], 12/25/2024 21:05:31 12/26/19 25 12/25/2024 CT/NG (CHLA MYDIA /NEIS SERIA ) DNA chlamydia trachomatis DNA NOT DETECT ED not detect ed Not Available [facility] (Lab) [address] [place], [address], 12/25/2024 21:21:48 12/26/19 25 12/25/2024 CT/NG (CHLA MYDIA /NEIS SERIA ) DNA neisseria gonorrhea DNA NOT DETECT ED not detect ed Not Available [facility] (Lab) [address] [place], [address], 12/25/2024 21:21:48 12/26/19 25 12/25/2024 HIV COMBO : HIV 1/2 AB,P2 4 AG HIV combo assay NON-RE ACTIVE nonrea ctive The HIV combo test scree ns for HIV-1 , HIV-2 , HIV p24 Ag, and HIV group O. Any react samira scree n resul t will be sent for PCR confi rmato ry testi ng. Not Available [facility] (Lab) [address] [place], [address], 12/25/2024 21:29:43 12/26/19 25 12/25/2024 HIV COMBO : HIV 1/2 AB,P2 4 AG signal/cutof f 0.26 0.00-0 .99 Not Available [facility] (Lab) [address] [place], [address], 12/25/2024 21:29:43 12/26/19 25 12/27/2024 HERPE S/HSV 1 hsv type 1 IgG Non Reacti ve non reacti ve Ple ase note refer ence inter diana blackwell e HSV-1 IgG testi ng perfo rmed using the [employer] HSV- 1 IgG assay . Not Available [facility] (Lab) [address] [place], [address], 12/27/2024 08:12:41 12/26/1912/27/2024 HERPE S/HSV 1 hsv [...] IgG assay . Perfo rmed at: - [facility] [address] [facility] [employer] [place] [address] Lab Direc tor: Franklin turner PhD, Phone : [phone] Not Available [facility] (Lab) [address] [place], [address], 12/27/2024 08:12:41 12/26/1912/27/2024 RPR WITH REFLE X TO RPR TITER RPR with reflex to RPR titer Reacti ve non reacti ve abnormal Perfo rmed at: - [facility] [facility] [address] [facility] [employer] [facility], [place] [address] Lab Direc tor: Franklin turner PhD, Phone : [phone] Not Available [facility] (Lab) [address] [place], [address], 12/27/2024 13:11:11 12/26/19 25 12/27/2024 RPR WITH REFLE X TO RPR TITER RPR with reflex to RPR titer Reacti ve non reacti ve abnormal Perfo rmed at: - [facility] [place] [facility] [address] [place] [address] Lab Direc tor: Franklin turner PhD, Phone : [phone] Not Available [facility] (Lab) [address] [place], [address], 12/27/2024 13:11:12 12/26/19 25 12/27/2024 RPR WITH REFLE X TO RPR TITER RPR titer 1:1 titer nonrea <1:1 abnormal Perfo rmed at: [facility] [address] [place] [address] Lab Dire tor: Franklin turner PhD, Phone : [phone] Not Available [facility] (Lab) [address] [place], [address], 12/27/2024 13:11:12 Result Notes None recorded. Problems Name Problem SNOMED Code Status Onset Date Resolution Date Notes Provider Name and Address Organization Details Recorded Time Essential hypertension 55882938 Active 2024 Jeniffer noonan MD [address], [place], [address], [employer] [facility] [employer] 09:28:54 Skin lesion 94991701 Active 2024 Jeniffer noonan MD [address], [place], [address], [employer] [facility] [employer] 14:39:16 Smoker 62530320 Active 2024 Jeniffer noonan MD [address] [place], [address], [facility] 15:00:25 Hyperlipidemia 17604574 Active 2024 SARA Salinas null, [facility] 15:19:05 Syphilis test finding 930779730 Active 2024 SARA Salinas null, [facility] 15:20:04 Seborrheic keratosis 641039747 Active 2024 Tree boone MD [address], [place], [address], [facility] [employer] [facility] 14:39:33 Mild depression 436738372 Active 2024 Jeniffer noonan MD [address], [place], [address], [facility] [employer] [facility] 11:52:55 Dysphagia 19429399 Active 2024 Jeniffer noonan MD [address], [place], [address], [facility] [employer] [facility] 11:05:08 Problem Notes None recorded. Procedures Surgical History Date Name Laterality Status Provider Name and Address Organization Details Recorded Time 01/01/20 25 Excision Cyst Multilayer completed Tree paz MD [address], [place], [address], [facility] 12/31/2024 12:34:20 cataract extraction and implantation of intraocular lens completed Dorothy Jeffers MA [facility] 12/25/2024 14:21:23 Imaging Results None recorded. Procedure [...] temperature Heart rate Respiratory rate Oxygen saturation Systolic And Diastolic Provider Name and Address Organization Details Last Updated DateTime 172.72 cm 27.2 kg/m2 00160.0 3 g 98.5 [degF] 76 /min 14 /min 99 % 152/82 mm[Hg] Shahana Anderson MA [employer] 12:10:59 Social History Question Answer Notes LastModified by Organizat ion Details LastModified Time Tobacco Smoking Status Never Smoker MICH Lynn, [employer] 12/25/2024 14:18:20 What Is Your Level Of [...] not available 12/25/2024 [facility] Information not available 12/25/2024 What Was [...] anxious, or unable to sleep at night)? [id number] Information not available 12/25/2024 Family History Relationship [...] 50 mcg/0.25mL dose 10/01/2020 completed Not Available [facility] 11:03:47 COVID-19, mRNA, LNP-S, PF, 100 mcg/0.5mL dose or 50 mcg/0.25mL dose 10/29/2020 completed Not Available [facility] 11:03:47 COVID-19, mRNA, LNP-S, PF, 100 mcg/0.5mL dose or 50 mcg/0.25mL dose 05/11/2021 completed Not Available [facility] 11:03:47 Past Encounters Encounter ID Performer Location Encounter Start Date Encounter Closed Date Diagnosis/Indication Diagnosis SNOMED-CT Code Diagnosis ICD10 Code Diagnosis IMO Codes Diagnosis Note [id number] Jeniffer smith MD [facility] [address] [place] [address] 12/25/2024 14:05:21 12/25/2024 14:48:29 Screening due 752064947 Z13.9 40282616 C-scope: States that he did do this [...] above Screening for malignant neoplasm of colon 097178400 Z12.11 016609 Essential hypertension 35326251 I10 86395 On amlodipine Readily admits to being non compliant, advised to take his medication dailyGet labs Screening for malignant neoplasm of prostate 834484031 Z12.5 576216 Venereal d isease screening 165931896 Z11.3 9134073 Skin lesion 03239669 L98 .9 [address]896 Dark irregular shaped mole noted on the R baptist areaRefer to Dr Busby Smoker 14194392 F17.200 229445 Rarely smokes cigarsAdvi sed to cut back and stopUS AAA at age 66 years 0720122 Tree nunez MD [facility] [address] [place] [address] 12/31/2024 12:05:04 12/31/2024 12:35:08 Skin lesion 67216426 L98.9 [address] [employer] [facility] Concerns Section Related Observation LastModified by Organization Detai ls LastModified Time None Recorded Concern Status LastModified by Organization Details LastModified Time None Recorded Payers Encounter Date Sequence Insurance Name Policy Number Policy Echeverria Covered Member ID Echeverria Member ID Guarantor Name 12/31/2024 1 [facility] - DOS ON OR AFTER 2024 (MEDICAID REPLACEMENT - HMO) [id number] Raúl De La Garza [id number] Raúl De La Garza Notes Date Note Type Note Provider Name and Address Organization Details Recorded Time 12/31/2024 text/html Patient presents to clinic to discuss skin spot of R [place] area. States it has been there for 30-40 years, does bleed occasionally, but has not changed recently. New PCP was concerned it may be malignant so recommended he be seen here. Tree Gupta MD [address], [place], [address], [facility] 01/01/2025 16:16:40
--- OUTSIDE RECORDS SUMMARY | 2025-04-01 21:47 | XMS_ITS | Data Portability ---
Author Organization [place] [facility], Main Office Address [address] [place] [address] Assessment Encounter Date Assessment Date Assessment LastModified by Organization Details LastModified Time 12/31/2024 12/31/2024 Punch biopsy, 5mm, from irregular pigmented lesion of R jehovah's witness area. Post procedural instructions provided. RTC in 7-10 d for suture removal, sooner if concerns arise. Not available 12/31/2024 12:35:03 01/07/2025 01/07/2025 status post punch biopsy right jehovah's witness lesion. Benign pathology. No other issues. Suture removed. Follow-up p.r.n. Not available 01/07/2025 12:18:01 02/26/2025 02/26/2025 12/25/2024: PSA 2.44 Chol 214, LDL 108 WBC 4.0 01/15/2025: RPR +ve, T pallidum: Neg Not available 02/26/2025 11:51:41 03/12/2025 03/12/2025 12/25/2024: PSA 2.44 Chol 214, LDL 108 WBC 4.0 01/15/2025: RPR +ve, T pallidum: Neg Not available 03/19/2025 18:29:02 Plan of Treatment Reminders Order Date Submit Date Provider Last Modified By Organization Details Last Modified Time Details Appointments New Patient 60 2025 10:00A Javed Woodard NP Not available Not available Not available New Patient 15 2025 01:15P Javed Green MD Not available Not available Not available Any 15 2025 09:45A Javed noonan MD Not available Not available Not available Lab noninvasi ve colorecta l cancer DNA + occult blood screening , QL, stool 2024 025 [facility], [address], [address], [place], [address], 03/12/2025 11:33:00 CBC w/ auto diff [address] (Lab), [address] [place], [address], 03/31/2025 12:01:10 lipid panel, serum [address] (Lab), [address] [place], [address], 03/31/2025 12:01:10 CMP, serum or plasma [address] (Lab), [address] [place], [address], 03/31/2025 12:01:11 TSH, serum or plasma [address] (Lab), [address] [place], [address], 03/31/2025 12:01:11 noninvasi ve colorecta l cancer DNA + occult blood screening , QL, stool 2024 025 [facility], [address], [address], [place], [address], 03/12/2025 14:18:11 CBC w/ auto diff [address] (Lab), [address] [place], [address], 03/31/2025 12:01:10 lipid panel, serum [address] (Lab), [address] [place], [address], 03/31/2025 12:01:10 CMP, serum or plasma 2024 025 [facility] (Lab), [address] [place], [address], 02/28/2025 16:30:18 TSH, serum or plasma [address] (Lab), [address] [place], [address], 03/31/2025 12:01:10 PSA, total, serum or plasma 2024 025 [facility] (Lab), [address] [place], [address], 12/25/2024 20:34:41 noninvasi ve colorecta l cancer DNA + occult blood screening , QL, stool 2024 025 [place] [address] [facility], [address], [address], [place], [address], 01/02/2025 17:12:30 hepatitis panel (A+B+C), acute, serum 2024 025 [facility] Outpatient Lab, [address] [place], [address], 12/25/2024 20:08:36 CT + NG + TV, RNA, unspecifi ed specimen [address] Outpatient Lab, [address] [place], [address], 01/02/2025 17:12:17 HIV (1+2) Ab screen, serum [address] Outpatient Lab, [address] [place], [address], 01/02/2025 17:12:17 RPR (rapid plasma reagin), serum [address] Outpatient Lab, [address] [place], [address], 01/09/2025 15:57:12 hsv (1+2) igg Ab, serum [address] - Outpatient Lab, [address] [place], [address], 01/02/2025 17:12:17 CBC w/ auto diff 2024 025 [facility] (Lab), [address] [place], [address], 12/25/2024 19:22:06 lipid panel, serum 2024 025 [facility] (Lab), [address] [place], [address], 12/25/2024 19:45:40 CMP, serum or plasma 2024 025 [facility] (Lab), [address] [place], [address], 12/25/2024 19:45:50 TSH, serum or plasma 2024 025 [facility] (Lab), [address] [place], [address], 12/25/2024 20:34:36 Referral gastroent erologist referral - Please call patient to schedule. 2024 025 [email or web address] Jan Green MD, [address], [address], 03/20/2025 10:01:01 infectiou s disease specialis t referral 2024 025 [email or web address] [facility], [address] [place], [address], 03/13/2025 10:10:01 cardiolog ist referral - Please call patient to schedule an appointme nt as soon as possible please. Thank you. 2024 025 dennis Chapa MD, [address], [place], [address], 03/13/2025 10:10:00 psychiatr ist referral - Please call patient to schedule. 2024 025 [email or web address] [facility], [address] [facility], [address], [address], 03/13/2025 10:10:18 infectiou s disease specialis t referral 2024 025 [facility], [address] [place], [address], 02/26/2025 12:30:01 cardiolog ist referral - Please call patient to schedule an appointme nt as soon as possible please. Thank you. 2024 025 dennis Chapa MD, [address], [place], [address], 02/26/2025 12:30:00 psychiatr ist referral - Please call patient to schedule. 2024 025 ANDREW [facility], [address] [facility], [address], [address], 02/26/2025 12:34:37 cardiolog ist referral - Please call patient to schedule an appointme nt as soon as possible please. Thank you. 2024 025 ANDREW Chapa MD, [address], [place], [address], 03/14/2025 16:47:28 general surgeon referral - Please call patient to schedule an appointme nt. Thank you. 2024 025 ANDREW Short MD, [address] [facility] [address], [address], 03/26/2025 04:24:19 Procedures None recorded. Surgeries None recorded. Imaging None recorded. Medication Orders sertralin e 25 mg tablet 2024 025 [id number], [address] [place], [place], [id number], 03/12/2025 11:32:55 sertralin e 25 mg tablet 2024 025 [id number], [address] [facility], [place], [place], [id number], 02/26/2025 11:54:17 Patient TargetsNo targets recorded. Patient InstructionsNo instructions recorded. Reason for Referral Eyelet Operator Referral for Es sential hypertension Please call patient to schedule an appointment as soon as possible please. Thank you. Referring Physician: Jeniffer Maria [facility], Encounter Date: 12/25/2024 General Surgeon Referral for Skin lesion Please call patient to schedule an appointment. Thank you. Referring Physician: Jeniffer Maria [facility], Encounter Date: 12/25/2024 Eyelet Operator Referral for Es sential hypertension Please call [...] Jeniffer Maria [facility], Encounter Date: 02/26/2025 Eyelet Operator Referral for Es sential hypertension Please call patient to schedule an appointment as soon as possible please. Thank you. Referring Physician: Jeniffer Maria Internal [facility], Encounter Date: 03/12/2025 Infectious Disease Specialis t Referral for Syphilis test finding Referring Physician: Jeniffer Maria Internal [facility], Encounter Date: 03/12/2025 Psychiatrist Referral for Mi ld depression Please call patient to schedule. Referring Physician: Jeniffer Maria Internal Medicine, Encounter Date: 03/12/2025 Intern Brand Referral for Dysphagia Please call patient to schedule. Referring Physician: Jeniffer Maria Internal [facility], Encounter Date: 03/12/2025 Results Created Date Observation Date Name Description Value Unit Range Abnormal Flag Note LastModifiedBy Organization Detail LastModifiedTime 12/26/1912/25/2024 CBC/C OMPLE TE BLD COUNT W/DIF F white blood cells 4.0 x10'3 /uL 4.2-10 .8 low Not Available [facility] (Lab) [address] [place], [address], 12/25/2024 19:22:06 12/26/19 25 12/25/2024 CBC/C OMPLE TE BLD COUNT W/DIF F red blood cells 5.15 x10'6 /uL 4.10-5 .80 Not Available [facility] (Lab) [address] [place], [address], 12/25/2024 19:22:06 12/26/19 25 12/25/2024 CBC/C OMPLE TE BLD COUNT W/DIF F hemoglobin 14.9 g/dL 13.2-1 7.0 Not Available [facility] (Lab) [address] [place], [address], 12/25/2024 19:22:06 12/26/19 25 12/25/2024 CBC/C OMPLE TE BLD COUNT W/DIF F hematocrit 46.5 % 39.3-5 0.0 Not Available [facility] (Lab) [address] [place], [address], 12/25/2024 19:22:06 12/26/1912/25/2024 CBC/C OMPLE TE BLD COUNT W/DIF F mean red cell volume 90.3 fL 80.0-9 7.0 Not Available [facility] (Lab) [address] [place], [address], 12/25/2024 19:22:06 12/26/1912/25/2024 CBC/C OMPLE TE BLD COUNT W/DIF F mean red cell hemoglobin 28.9 pg 27.0-3 3.0 Not Available [facility] (Lab) [address] [place], [address], 12/25/2024 19:22:06 12/26/1912/25/2024 CBC/C OMPLE TE BLD COUNT W/DIF F mean RBC HGB concentratio n 32.0 g/dL 31.0-3 6.0 Not Available [facility] (Lab) [address] [place], [address], 12/25/2024 19:22:06 12/26/1912/25/2024 CBC/C OMPLE TE BLD COUNT W/DIF F red cell distribution width 14.9 % 11.8-1 5.5 Not Available [facility] (Lab) [address] [place], [address], 12/25/2024 19:22:06 12/26/1912/25/2024 CBC/C OMPLE TE BLD COUNT W/DIF F platelets 298 x10'3 /uL 150-40 0 Not Available [facility] (Lab) [address] [place], [address], 12/25/2024 19:22:06 12/26/1912/25/2024 CBC/C OMPLE TE BLD COUNT W/DIF F mean platelet volume 10.6 fL 9.0-12 .4 Not Available [facility] (Lab) [address] [place], [address], 12/25/2024 19:22:06 12/26/1912/25/2024 CBC/C OMPLE TE BLD COUNT W/DIF F neutrophils 38.2 % 39.0-7 2.0 low Not Available [facility] (Lab) [address] [place], [address], 12/25/2024 19:22:06 12/26/1912/25/2024 CBC/C OMPLE TE BLD COUNT W/DIF F lymphocytes 50.0 % 16.0-4 7.0 high Not Available [facility] (Lab) [address] [place], [address], 12/25/2024 19:22:06 12/26/1912/25/2024 CBC/C OMPLE TE BLD COUNT W/DIF F monocytes 10.9 % 5.0-12 .0 Not Available [facility] (Lab) [address] [place], [address], 12/25/2024 19:22:06 12/26/1912/25/2024 CBC/C OMPLE TE BLD COUNT W/DIF F eosinophils 0.2 % 1.0-7. 0 low Not Available [facility] (Lab) [address] [place], [address], 12/25/2024 19:22:06 12/26/1912/25/2024 CBC/C OMPLE TE BLD COUNT W/DIF F basophils 0.5 % 0.0-2. 0 Not Available [facility] (Lab) [address] [place], [address], 12/25/2024 19:22:06 12/26/1912/25/2024 CBC/C OMPLE TE BLD COUNT W/DIF F immature granulocytes 0.2 % 0.00-0 .50 Not Available [facility] (Lab) [address] [place], [address], 12/25/2024 19:22:06 12/26/1912/25/2024 CBC/C OMPLE TE BLD COUNT W/DIF F neutrophils, absolute count 1.53 x10'3 /uL 1.5-8. 0 Not Available [facility] (Lab) [address] [place], [address], 12/25/2024 19:22:06 12/26/1912/25/2024 CBC/C OMPLE TE BLD COUNT W/DIF F lymphocytes, absolute count 2.01 x10'3 /uL 1.07-3 .43 Not Available [facility] (Lab) [address] [place], [address], 12/25/2024 19:22:06 12/26/1912/25/2024 CBC/C OMPLE TE BLD COUNT W/DIF F monocytes, absolute count 0.44 x10'3 /uL 0.29-0 .99 Not Available [facility] (Lab) [address] [place], [address], 12/25/2024 19:22:06 12/26/1912/25/2024 CBC/C OMPLE TE BLD COUNT W/DIF F eosinophils, absolute count 0.01 x10'3 /uL 0.02-0 .53 low Not Available [facility] (Lab) [address] [place], [address], 12/25/2024 19:22:06 12/26/1912/25/2024 CBC/C OMPLE TE BLD COUNT W/DIF F basophils, absolute count 0.02 x10'3 /uL 0.01-0 .08 Not Available [facility] (Lab) [address] [place], [address], 12/25/2024 19:22:06 12/26/19 25 12/25/2024 CBC/C OMPLE TE BLD COUNT W/DIF F immature granulocytes ,absolute 0.01 x10'3 /uL 0.00-0 .05 Not Available [facility] (Lab) [address] [place], [address], 12/25/2024 19:22:06 12/26/19 25 12/25/2024 CBC/C OMPLE TE BLD COUNT W/DIF F nucleated red blood cells 0.0 % -0 Not Available [facility] (Lab) [address] [place], [address], 12/25/2024 19:22:06 12/26/19 25 12/25/2024 CBC/C OMPLE TE BLD COUNT W/DIF F NRBC# 0.00 x10'3 /uL Not Available [facility] (Lab) [address] [place], [address], 12/25/2024 19:22:06 12/26/19 25 12/25/2024 LIPID PANEL cholesterol 214 mg/dL 140-19 9 high NIH MISSAEL NSUS RECOM MENDA TION FOR SAJAN STERO L: ADULT CHILD LOW RISK: <200 <170 BORDE RLINE : <200- 239 ----- HIGH RISK: >240 >200 Not Available [facility] (Lab) [address] [place], [address], 12/25/2024 19:45:40 12/26/19 25 12/25/2024 LIPID PANEL triglyceride s 82 mg/dL 0-150 NIH MISSAEL NSUS REPOR T RECOM MENDA TION FOR TRIGL YCERI ALEJA: ADULT CHILD LOW RISK: <150 ----- BODER LINE: 150-1 99 ----- HIGH RISK: >200 ----- Not Available [facility] (Lab) [address] [place], [address], 12/25/2024 19:45:40 12/26/19 25 12/25/2024 LIPID PANEL HDL cholesterol 90 mg/dL 40- Not Available [facility] (Lab) [address] [place], [address], 12/25/2024 19:45:40 12/26/19 25 12/25/2024 LIPID PANEL [...] WILL NOT BE REPOR DORA. Not Available [facility] (Lab) [address] [place], [address], 12/25/2024 19:45:40 12/26/1912/25/2024 COMPR EHENS SAMIRA METAB OLIC PANEL sodium 138 mmol/ L 137-14 5 Not Available [facility] (Lab) [address] [place], [address], 12/25/2024 19:45:50 12/26/1912/25/2024 COMPR EHENS SAMIRA METAB OLIC PANEL potassium 4.4 mmol/ L 3.5-5. 1 Not Available [facility] (Lab) [address] [place], [address], 12/25/2024 19:45:50 12/26/19 25 12/25/2024 COMPR EHENS SAMIRA METAB OLIC PANEL chloride 102 mmol/ L 98-107 Not Available [facility] (Lab) [address] [place], [address], 12/25/2024 19:45:50 12/26/19 25 12/25/2024 COMPR EHENS SAMIRA METAB OLIC PANEL carbon dioxide 28 mmol/ L 22-30 Not Available [facility] (Lab) [address] [place], [address], 12/25/2024 19:45:50 12/26/1912/25/2024 COMPR EHENS SAMIRA METAB OLIC PANEL anion gap 12.4 mmol/ L 14-22 low Not Available [facility] (Lab) [address] [place], [address], 12/25/2024 19:45:50 12/26/1912/25/2024 COMPR EHENS SAMIRA METAB OLIC PANEL glucose 97 mg/dL 70-99 Not Available [facility] (Lab) [address] [place], [address], 12/25/2024 19:45:50 12/26/19 25 12/25/2024 COMPR EHENS SAMIRA METAB OLIC PANEL BUN 10 mg/dL 8-19 Not Available [facility] (Lab) [address] [place], [address], 12/25/2024 19:45:50 12/26/19 25 12/25/2024 COMPR EHENS SAMIRA METAB OLIC PANEL creatinine 1.00 mg/dL 0.66-1 .25 Not Available [facility] (Lab) [address] [place], [address], 12/25/2024 19:45:50 12/26/1912/25/2024 COMPR EHENS SAMIRA METAB OLIC PANEL GFR >60 Refer ence Range : Pearcy ge GFR Healt hy Adult : >60 [...] calcu lator is avail able on the [facility] websi te: https :[email or web address] w.kid mary anne.o rg/pr ofess ional s/kdo qi/gf r_cal culat or Not Available [facility] (Lab) [address] [place], [address], 12/25/2024 19:45:50 12/26/19 25 12/25/2024 COMPR EHENS SAMIRA METAB OLIC PANEL alkaline phosphatase 57 U/L 38-126 Not Available [facility] (Lab) [address] [place], [address], 12/25/2024 19:45:50 12/26/19 25 12/25/2024 COMPR EHENS SAMIRA METAB OLIC PANEL alanine aminotransfe rase 24 U/L 0-50 Not Available [facility] (Lab) [address] [place], [address], 12/25/2024 19:45:50 12/26/19 25 12/25/2024 COMPR EHENS SAMIRA METAB OLIC PANEL aspartate aminotransfe rase 33 U/L 15-46 Not Available [facility] (Lab) [address] [place], [address], 12/25/2024 19:45:50 12/26/19 25 12/25/2024 COMPR EHENS SAMIRA METAB OLIC PANEL bilirubin, total 1.10 mg/dL 0.20-1 .30 Not Available [facility] (Lab) [address] [place], [address], 12/25/2024 19:45:50 12/26/1912/25/2024 COMPR EHENS SAMIRA METAB OLIC PANEL calcium 10.2 mg/dL 8.4-10 .2 Not Available [facility] (Lab) [address] [place], [address], 12/25/2024 19:45:50 12/26/1912/25/2024 COMPR EHENS SAMIRA METAB OLIC PANEL total protein 7.9 g/dL 6.3-8. 2 Not Available [facility] (Lab) [address] [place], [address], 12/25/2024 19:45:50 12/26/1912/25/2024 COMPR EHENS SAMIRA METAB OLIC PANEL albumin 4.7 g/dL 3.4-5. 0 Not Available [facility] (Lab) [address] [place], [address], 12/25/2024 19:45:50 12/26/1912/25/2024 COMPR EHENS SAMIRA METAB OLIC PANEL globulin 3.2 g/dL 2.6-4. 2 Not Available [facility] (Lab) [address] [place], [address], 12/25/2024 19:45:50 12/26/19 25 12/25/2024 COMPR EHENS SAMIRA METAB OLIC PANEL A/G ratio 1.5 ratio 1.0-2. 0 Not Available [facility] (Lab) [address] [place], [address], 12/25/2024 19:45:50 12/26/1912/25/2024 HEPAT ITIS ACUTE PANEL hepatitis A IgM antibody NON-RE ACTIVE non-re active For sampl es repor dora as Derek alvarez React samira for HAV IgM, it is recom lucy d a new speci men be obtai oziel in 2 weeks and kassie dora. Not Available [facility] (Lab) [address] [place], [address], 12/25/2024 20:38:15 12/26/19 25 12/25/2024 HEPAT ITIS ACUTE PANEL hepatitis A virus signal/cutof 0.01 0.00-0 .79 Not Available [facility] (Lab) [address] [place], [address], 12/25/2024 20:38:15 12/26/19 25 12/25/2024 HEPAT ITIS ACUTE PANEL hepatitis B core IgM antibody NON-RE ACTIVE non-re active Not Available [facility] (Lab) [address] [place], [address], 12/25/2024 20:38:15 12/26/19 25 12/25/2024 HEPAT ITIS ACUTE PANEL HBV core IgM signal/cutof f 0.03 0.00-1 .10 Not Available [facility] (Lab) [address] [place], [address], 12/25/2024 20:38:15 12/26/19 25 12/25/2024 HEPAT ITIS ACUTE PANEL hepatitis B surface antigen NON-RE ACTIVE non-re active All speci mens react samira for Hepat itis B Surfa ce Antig en will refle x to refer [facility] lab confi rmato ry testi ng. Not Available [facility] (Lab) [address] [place], [address], 12/25/2024 20:38:15 12/26/19 25 12/25/2024 HEPAT ITIS ACUTE PANEL HBV surf.antigen signal/cutof f 0.07 0.00-0 .99 Not Available [facility] (Lab) [address] [place], [address], 12/25/2024 20:38:15 12/26/19 25 12/25/2024 HEPAT ITIS ACUTE PANEL hepatitis C antibody NON-RE ACTIVE non-re active All speci mens react samira for Hepat itis C Virus antib hao will refle x to PCR confi rmato ry testi ng. Pleas e allow 48-72 hours for resul ts. Not Available [facility] (Lab) [address] [place], [address], 12/25/2024 20:38:15 12/26/19 25 12/25/2024 HEPAT ITIS ACUTE PANEL hepatitis C virus signal/cutof 0.05 0.00-0 .99 Not Available [facility] (Lab) [address] [place], [address], 12/25/2024 20:38:15 12/26/19 25 12/25/2024 TSH W/REF JAMAL FT4 TSH with reflex free T4 2.100 uIU/m L 0.465- 4.680 Not Available [facility] (Lab) [address] [place], [address], 12/25/2024 20:34:36 12/26/19 25 12/25/2024 PSA SCREE N PSA medicare screen 2.44 NG/mL 0.00-4 .00 Not Available [facility] (Lab) [address] [place], [address], 12/25/2024 20:34:41 12/26/19 25 12/25/2024 TRICH OMONA S VAGIN CORNELL DNA, PCR trichomonas vaginalis DNA NOT DETECT ED not detect ed Not Available [facility] (Lab) [address] [place], [address], 12/25/2024 21:05:31 12/26/19 25 12/25/2024 CT/NG (CHLA MYDIA /NEIS SERIA ) DNA chlamydia trachomatis DNA NOT DETECT ED not detect ed Not Available [facility] (Lab) [address] [place], [address], 12/25/2024 21:21:48 0812/25/2024 CT/NG (CHLA MYDIA /NEIS SERIA ) DNA neisseria gonorrhea DNA NOT DETECT ED not detect ed Not Available [facility] (Lab) [address] [place], [address], 12/25/2024 21:21:48 12/26/19 25 12/25/2024 HIV COMBO : HIV 1/2 AB,P2 4 AG HIV combo assay NON-RE ACTIVE nonrea ctive The HIV combo test scree ns for HIV-1 , HIV-2 , HIV p24 Ag, and HIV group O. Any react samira scree n resul t will be sent for PCR confi rmato ry testi ng. Not Available [facility] (Lab) [address] [place], [address], 12/25/2024 21:29:43 12/26/1912/25/2024 HIV COMBO : HIV 1/2 AB,P2 4 AG signal/cutof f 0.26 0.00-0 .99 Not Available [facility] (Lab) [address] [place], [address], 12/25/2024 21:29:43 12/26/1912/27/2024 HERPE S/HSV 1 hsv type 1 IgG Non Reacti ve non reacti ve Ple ase note refer ence inter diana blackwell e HSV-1 IgG testi ng perfo rmed using the [employer] HSV- 1 IgG assay . Not Available [facility] (Lab) [address] [place], [address], 12/27/2024 08:12:41 12/26/1912/27/2024 HERPE S/HSV 1 hsv [...] at: - [facility] [address] [employer] [facility], [place] [address] 1269 Lab Direc tor: Franklin turner PhD, Phone : [phone] Not Available [facility] (Lab) [address] [place] [address], [address], 12/27/2024 08:12:41 12/26/19 25 12/27/2024 RPR WITH REFLE X TO RPR TITER RPR with reflex to RPR titer Reacti ve non reacti ve abnormal Perfo rmed at: - [facility] [address] [facility], [place] [address] Lab Direc tor: Franklin turner PhD, Phone : [phone] Not Available [facility] (Lab) [address] [place] [address], [address], 12/27/2024 13:11:11 12/26/19 25 12/27/2024 RPR WITH REFLE X TO RPR TITER RPR with reflex to RPR titer Reacti ve non reacti ve abnormal Perfo rmed at: - [facility] [address] [employer] [facility], [place] [address] Lab Direc tor: Franklin turner PhD, Phone : [phone] Not Available [facility] (Lab) [address] [place] [address], [address], 12/27/2024 13:11:12 12/26/19 25 12/27/2024 RPR WITH REFLE X TO RPR TITER RPR titer 1:1 titer nonrea <1:1 abnormal Perfo rmed at: CB - [facility] [address] [facility], [place] [address] Lab Direc tor: Franklin turner PhD, Phone : [phone] Not Available [facility] (Lab) [address] [facility], [place], [address], 12/27/2024 13:11:12 Result Notes None recorded. Problems Name Problem SNOMED Code Status Onset Date Resolution Date Notes Provider Name and Address Organization Details Recorded Time Essential hypertension 56855346 Active 2024 Jeniffer noonan MD [address] [facility], [address], [address], [employer] 09:28:54 Skin lesion 09510858 Active 2024 Jeniffer noonan MD [address] [facility], [address], [address], [employer] 14:39:16 Smoker 52534774 Active 2024 Jeniffer noonan MD [address] [facility], [address], [address], [employer] [facility] 15:00:25 Hyperlipidemia 94475629 Active 2024 [place] [employer] [facility] 15:19:05 Syphilis test finding 478753241 Active 2024 S[place] [employer] [facility] 15:20:04 Seborrheic keratosis 784021714 Active 2024 Tree boone MD [address] [facility], [address], [address], [employer] [facility] 14:39:33 Mild depression 689976329 Active 2024 Jeniffer noonan MD [address] [facility], [address], [place], [address], [employer] 11:52:55 Dysphagia 58263497 Active 2024 Jeniffer noonan MD [address], [address], [place], [address], [employer] 11:05:08 Problem Notes None recorded. Procedures Surgical History Date Name Laterality Status Provider Name and Address Organization Details Recorded Time 01/01/20 25 Excision Cyst Multilayer completed Tree paz MD [address] [facility], [address], [place], [address], [employer] 12/31/2024 12:34:20 cataract extraction and implantation of intraocular lens completed Dorothy Jeffers MA [employer] 12/25/2024 14:21:23 Imaging Results None recorded. Procedure [...] weight Body temperature Heart rate Oxygen saturation Pain severity - 0-10 verbal numeric rating [Score] - Reported Systolic And Diastolic Provider Name and Address Organization Details Last Updated DateTime 5 172.72 cm 27.2 kg/m2 78362.0 3 g 98.3 [degF] 78 /min 100 % 0 154/86 mm[Hg] Dorohty Jeffers MA [employer] 14:23:14 Date Recorded Body height Body mass index (BMI) Body weight Body temperature Heart rate Respiratory rate Oxygen saturation Systolic And Diastolic Provider Name and Address Organization Details Last Updated DateTime 5 172.72 cm 27.2 kg/m2 79097.0 3 g 98.5 [degF] 76 /min 14 /min 99 % 152/82 mm[Hg] Shahana Anderson MA [facility] [employer] [facility] 12:10:59 Date Recorded Body height Body mass index (BMI) Body weight Heart rate Oxygen saturation Systolic And Diastolic Provider Name and Address Organization Details Last Updated DateTime 5 172.72 cm 27.2 kg/m2 16676.0 3 g 78 /min 99 % 150/80 mm[Hg] SARA Bowling [facility] [employer] [facility] 5 11:44:11 Date Recorded Body height Body mass index (BMI) Body weight Body temperature Pain severity - 0-10 verbal numeric rating [Score] - Reported Heart rate Oxygen saturation Systolic And Diastolic Provider Name and Address Organization Details Last Updated DateTime 5 172.72 cm 27.8 kg/m2 82288.4 g 98.7 [degF] 0 83 /min 99 % 160/90 mm[Hg] Dorothy Jeffers MA [facility] [employer] [facility] 5 11:21:35 Date Recorded Body height Body mass index (BMI) Body weight Body temperature Pain severity - 0-10 verbal numeric rating [Score] - Reported Heart rate Oxygen saturation Systolic And Diastolic Provider Name and Address Organization Details Last Updated DateTime 5 172.72 cm 26.9 kg/m2 90122.8 5 g 98.2 [degF] 0 75 /min 99 % 150/76 mm[Hg] Dorothy Jeffers MA [facility] [employer] [facility] 5 10:47:33 Social History Question Answer Notes LastModified by Organizat ion Details LastModified Time Tobacco Smoking Status Never Smoker MICH Lynn [facility] [employer] [facility] 12/25/2024 14:18:20 What Is Your Level Of [...] not available 12/25/2024 Where Do You Live? [facility] Information not available 12/25/2024 What Was [...] anxious, or unable to sleep at night)? [id number] Information not available 12/25/2024 Family History Relationship [...] 50 mcg/0.25mL dose 10/01/2020 completed Not Available [facility] 5 11:03:47 COVID-19, mRNA, LNP-S, PF, 100 mcg/0.5mL dose or 50 mcg/0.25mL dose 10/29/2020 completed Not Available [facility] 5 11:03:47 COVID-19, mRNA, LNP-S, PF, 100 mcg/0.5mL dose or 50 mcg/0.25mL dose 05/11/2021 completed Not Available [facility] 5 11:03:47 Past Encounters Encounter ID Performer Location Encounter Start Date Encounter Closed Date Diagnosis/Indication Diagnosis SNOMED-CT Code Diagnosis ICD10 Code Diagnosis IMO Codes Diagnosis Note [id number] Jeniffer smith MD [facility] Willie davidson [address] [place] [address] [address] [facility] [place] [address] 12/25/2024 14:05:21 12/25/2024 14:48:29 Screening due 582397837 Z13.9 01039388 C-scope: States that he did do this [...] above Screening for malignant neoplasm of colon 158391903 Z12.11 869406 Essential hypertension 66492131 I10 11066 On amlodipine Readily admits to being non compliant, advised to take his medication dailyGet labs Screening for malignant neoplasm of prostate 468660746 Z12.5 472268 Venereal d isease screening 361358620 Z11.3 6210572 Skin lesion 29720377 L98 .9 88337 Dark irregular shaped mole noted on the R jehovah's witness areaRefer to Dr Busby Smoker 99801460 F17.200 330158 Rarely smokes cigarsAdvi sed to cut back and stopUS AAA at age 66 years [id number] Tree nunez MD [facility] General Surgery [address] [address] 12/31/2024 12:05:04 12/31/2024 12:35:08 Skin lesion 77585688 L98.9 78850 jehovah's witness right [id number] Tree nunez MD [facility] General Surgery [address] [address] 01/07/2025 11:40:59 01/07/2025 12:28:50 Seborrheic keratosis 514548182 L82.1 82512 Removal of sutures done 6895083364 42468 Z48.02 6128471 [id number] Jeniffer smith MD [facility] Primary Care [facility] [address] [facility] [place] [address] 02/26/2025 11:01:10 02/26/2025 11:55:30 Screening due 013229511 Z13.9 83813123 C-scope: States that he did do this [...] above Screening for malignant neoplasm of colon 788509238 Z12.11 993558 Essential hypertension 98978808 I10 61466 On amlodipine Readily admits to being non compliant, advised to take his medication dailyGet labsNeeds to see cardiology ! Skin lesion 48316919 L98 .9 08263 Dark irregular shaped mole noted on the R jehovah's witness areaRefer to Dr Qi Busby last OV 01/07/2025 Smoker 78184840 F17.200 248395 Rarely smokes cigarsAdvi sed to cut back and stopUS AAA at age 66 years Syphilis test finding 40 1625078 A53.0 2928200498 T pallidum was negativeNe eds to see IDSee caseStates that [facility] is not taking his insurance so will refer to [facility] Mild depression 09789905 3 F32.A 087540 States that his ex-GF has left himNot suicidal or homicidalA greeable to get on sertraline and all side effects explained to himAlso refer to psychiatry RTC in one monthER if any symptoms worsen, he is very appreciati ve to this plan of care Hyperlipidemia 50825888 E78.5 20931355 On crestor 40mg dailyGet labs [id number] Jeniffer smith MD [facility] [address] [facility] [address] [address] [place] [address] 03/12/2025 10:33:32 03/12/2025 11:47:40 Screening due 774515321 Z13.9 80845532 C-scope: States that he did do this [...] above Screening for malignant neoplasm of colon 555149965 Z12.11 401124 Essential hypertension 25997323 I10 00887 On amlodipine Readily admits to being non compliant, advised to take his medication dailyGet labsNeeds to see cardiology ! Skin lesion 15350480 L98 .9 68740 Dark irregular shaped mole noted on the R jehovah's witness areaRefer to Dr Qi Busby last OV 01/07/2025 Smoker 45246506 F17.200 308557 Rarely smokes cigarsAdvi sed to cut back and stopUS AAA at age 66 years Syphilis test finding 40 8156689 A53.0 4348764849 T pallidum was negativeNe eds to see IDSee caseStates that [facility] is not taking his insurance so will refer to [facility] Mild depression 80306150 3 F32.A 123908 States that his ex-GF has left himNot suicidal or homicidalA greeable to get on sertraline and all side effects explained to himAlso refer to psychiatry RTC in one monthER if any symptoms worsen, he is very appreciati ve to this plan of care Hyperlipidemia 80387879 E78.5 09417785 On crestor 40mg dailyGet labs Dysphagia 04681744 R13.1 0 07850848 S/p EGD 02/28/2025 : Noted to have retained food and Schatzki's ringDr Quan mendosa does need another EGD [...] Member ID Echeverria Member ID Guarantor Name 03/25/2025 [place] Raúl De La Garza [id number] Raúl De La Garza 03/25/2025 1 [facility] - DOS ON OR AFTER 2024 (MEDICAID REPLACEMENT - HMO) [id number] Raúl De La Garza [id number] Raúl Frederic 12/31/2024 1 [facility] (MEDICAID REPLACEMENT - HMO) Raúl De La Garza [id number] Raúl De La Garza Notes Date Note [...] fevers or chills Jeniffer Maria MD [address], [employer], [place], [address], [employer] 12/25/2024 15:03:33 12/31/2024 text/html Patient presents to clinic to discuss skin spot of R jehovah's witness area. States it has been there for 30-40 years, does bleed occasionally, but has not changed recently. New PCP was concerned it may be malignant so recommended he be seen here. Tree Gupta MD [address] [employer], [place], [address], [employer] 01/01/2025 16:16:40 01/07/2025 text/html no complaints Tree Gupta MD [address], [employer], [place], [address], [employer] 01/09/2025 14:39:48 02/26/2025 text/html OV 12/25/2024:Here to [...] homicidalNo new labs Jeniffer Maria MD [address], [address] [employer], [place], [address], [employer] 02/26/2025 12:00:13 03/12/2025 text/html OV 12/25/2024:Here to establish care [...] and retained food Jeniffer Maria MD [address] [facility], [address], [place], [address], [employer] 03/19/2025 18:29:57
--- OUTSIDE RECORDS SUMMARY | 2025-04-01 21:48 | XMS_ITS | Continuity of Care Document ---
Author Organization [place] - [facility] [employer] [facility], [facility] [place] Address [address] [place] [address] Assessment Encounter Date Assessment Date Assessment LastModified by Organization Details LastModified Time 02/26/2025 02/26/2025 12/25/2024: PSA 2.44 Chol 214, [...] blood screening , QL, stool 2024 025 [facility], [address], [address], [place], [address], 03/12/2025 14:18:11 CBC w/ auto diff 2024 025 [email or web address] [facility] (Lab), [address] [place], [address], 03/31/2025 12:01:10 lipid panel, serum 2024 025 [email or web address] [facility] (Lab), [address] [place], [address], 03/31/2025 12:01:10 CMP, serum or plasma 2024 025 [facility] (Lab), [address] [place], [address], 02/28/2025 16:30:18 TSH, serum or plasma [email or web address] [place] [address] (Lab), [address] [place], [address], 03/31/2025 12:01:10 Referral infectiou s disease specialis t referral [address] [facility] Infectious Disease, [address] [place], [address], 02/26/2025 12:30:01 cardiolog ist referral - Please call patient to schedule an appointme nt as soon as possible please. Thank you. 2024 Michael Chapa MD, [address], [facility] [address], [place], [address], 02/26/2025 12:30:00 psychiatr ist referral - Please call patient to schedule. 2024 [facility] Psychiatry, [address], [facility] [address], [place], [address], 02/26/2025 12:34:37 Procedures None recorded. Surgeries None recorded. Imaging None recorded. Medication Orders sertralin e 25 mg tablet 2024 [id number], [address], [place], [place], [id number], 02/26/2025 11:54:17 Patient TargetsNo targets recorded. Patient InstructionsNo instructions recorded. Reason for Referral Employment Legal Assistant Referral for Es sential hypertension Please call patient to schedule an appointment as soon as possible please. Thank you. Referring Physician: Jeniffer Maria, Internal Medicine, Encounter Date: 02/26/2025 Infectious Disease Specialis t Referral for Syphilis test finding Referring Physician: Jeniffer Maria, Internal Medicine, Encounter Date: 02/26/2025 Psychiatrist Referral for Mi ld depression Please call patient to schedule. Referring Physician: Jeniffer Maria Internal Medicine, Encounter Date: 02/26/2025 Problems Name Problem SNOMED Code Status Onset Date Resolution Date Notes Provider Name and Address Organization Details Recorded Time Essential hypertension 91127782 Active 2024 Jeniffer noonan MD [address], [address], [place], [address], [employer] 09:28:54 Skin lesion 72531696 Active 2024 Jeniffer noonan MD [address], [address], [place], [address], [employer] 14:39:16 Smoker 03273458 Active 2024 Jeniffer noonan MD [address], [address], [place], [address], [employer] 15:00:25 Hyperlipidemia 09485437 Active 2024 [place], [place] - [facility] [employer] 15:19:05 Syphilis test finding 364158210 Active 2024 [place] [facility] [employer] 15:20:04 Seborrheic keratosis 233780569 Active 2024 Tree boone MD [address], [address], [place], [address], [employer] 14:39:33 Mild depression 437412258 Active 2024 Jeniffer noonan MD [address], [address], [place], [address], [facility] [employer] [facility] 11:52:55 Dysphagia 24470076 Active 2024 Jeniffer noonan MD [address], [address], [place], [address], [facility] [employer] [facility] 11:05:08 Problem Notes None recorded. Procedures Surgical History Date Name Laterality Status Provider Name and Address Organization Details Recorded Time 01/01/20 25 Excision Cyst Multilayer completed Tree paz MD [address], [address], [place], [address], [facility] [employer] [facility] 12/31/2024 12:34:20 cataract extraction and implantation of intraocular lens completed Dorothy Jeffers MA [facility] [employer] 12/25/2024 14:21:23 Imaging Results None recorded. Procedure [...] Updated DateTime 5 172.72 cm 27.8 kg/m2 33936.4 g 98.7 [degF] 0 83 /min 99 % 160/90 mm[Hg] Dorothy Jeffers MA [facility] [employer] 11:21:35 Social History Question Answer Notes LastModified by Organizat ion Details LastModified Time Tobacco Smoking Status Never Smoker Dorothy Jeffers MA null, [facility] [employer] 12/25/2024 14:18:20 What Is Your Level Of [...] not available 12/25/2024 Where Do You Live? [facility] Information not available 12/25/2024 What Was [...] anxious, or unable to sleep at night)? [id number] Information not available 12/25/2024 Family History Relationship [...] 50 mcg/0.25mL dose 10/01/2020 completed Not Available [facility] 5 11:03:47 COVID-19, mRNA, LNP-S, PF, 100 mcg/0.5mL dose or 50 mcg/0.25mL dose 10/29/2020 completed Not Available [facility] 5 11:03:47 COVID-19, mRNA, LNP-S, PF, 100 mcg/0.5mL dose or 50 mcg/0.25mL dose 05/11/2021 completed Not Available [facility] 5 11:03:47 Past Encounters Encounter ID Performer Location Encounter Start Date Encounter Closed Date Diagnosis/Indication Diagnosis SNOMED-CT Code Diagnosis ICD10 Code Diagnosis IMO Codes Diagnosis Note [id number] Jeniffer smith MD [facility] [address] [facility] [address] [place] [address] 02/26/2025 11:01:10 02/26/2025 11:55:30 Screening due 869023876 Z13.9 96997023 C-scope: States that he did do this [...] above Screening for malignant neoplasm of colon 177358224 Z12.11 239780 Essential hypertension 66528593 I10 28343 On amlodipine Readily admits to being non compliant, advised to take his medication dailyGet labsNeeds to see cardiology ! Skin lesion 68433537 L98 .9 13799 Dark irregular shaped mole noted on the R pentecostalism areaRefer to Dr Qi Busby last OV 01/07/2025 Smoker 11358966 F17.200 102159 Rarely smokes cigarsAdvi sed to cut back and stopUS AAA at age 66 years Syphilis test finding 40 8886714 A53.0 0837875737 T pallidum was negativeNe eds to see IDSee caseStates that Hubert Linda is not taking his insurance so will refer to [facility] Mild depression 32166726 3 F32.A 702847 States that his ex-GF has left himNot suicidal or homicidalA greeable to get on sertraline and all side effects explained to himAlso refer to psychiatry RTC in one monthER if any symptoms worsen, he is very appreciati ve to this plan of care Hyperlipidemia 89033244 E78.5 80794371 On crestor 40mg dailyGet labs Health Concerns Section Related Observation LastModified by Organization Detai ls LastModified Time None Recorded Concern Status LastModified by Organization Details LastModified Time None Recorded Payers Encounter Date Sequence Insurance Name Policy Number Policy Echeverria Covered Member ID Echeverria Member ID Guarantor Name 02/26/2025 1 [place] [facility] - DOS ON OR AFTER 2024 (MEDICAID REPLACEMENT - HMO) [id number] Raúl De La Garza [id number] Raúl De La Garza Notes Date Note Type Note Provider Name and Address Organization Details Recorded Time 02/26/2025 text/html OV 12/25/2024:Here to establish care [...] homicidalNo new labs Jeniffer Maria MD [address], [address], [place], [address], [place] [facility] 02/26/2025 12:00:13
--- OUTSIDE RECORDS SUMMARY | 2025-04-01 21:48 | XMS_ITS | Clinical Summary ---
Author Organization [facility] Address [address] [place] [address] Care Team Providers Care Grinder Gear Name Role Phone Unavailable Primary Care Provider Unavailabl e Encounters Date Type Department Care Team Description 12/31/2024 7:04 AM CDT - 12/31/2024 11:59 PM CDT Hospital Encounter [facility] [place] [address] Pancho Garcia MD Discharge Disposition: Home or [...] * Pathology (12/31/2024 12:00 AM CDT) PATHOLOGY [facility] Department of Laboratory Medicine [address] [place] [address] , extension [phone] Pathology Report Surgical Pathology Report Name: RAÚL DE LA GARZA Specimen #: [id number] Age: 6 1965 (Age: 59) Location: [facility] Sex: M Procedure Date: 12/31/2024 Hospital #: [id number] Date Received: 01/01/2025 Date Reported: 01/02/2025 Provider: PANCHO GARCIA Source: Skin, right restorationism, biopsy Clinical History: Skin lesion right restorationism. FINAL DIAGNOSIS: Skin, right restorationism, punch biopsy: - Seborrheic keratosis. Gross Description: Received in formalin, labeled with a patient label and as right restorationism is a 0.5 cm in diameter punch biopsy of granular dusky kemp-brown skin excised to a depth of up to 0.4 cm. The specimen is inked black, bisected, and entirely submitted in cassette 1 Gross examination (when applicable), interpretation, and sign out were performed at [facility], [address] [place] [address]. Electronically Signed Out TIERRA MONAE MD [facility] 12/31/2024 01/01/2025 12: 59 PM CDT Comment:Skin, right restorationism, biopsy us Pancho Garcia MD PATHOLOGY/CYTOLOGY OR DERABLES Final Result [facility] [address] [place] [address], [id number] from Last 3 Months
--- OUTSIDE RECORDS SUMMARY | 2025-04-01 21:48 | XMS_ITS | Continuity of Care Document ---
Author Organization [place] - [facility], [facility] General Surgery Address [address] [facility], te [address] [place] [id number] Assessment Encounter Date Assessment Date Assessment LastModified by Organization Details LastModified Time 01/07/2025 01/07/2025 status post punch biopsy right yarsani lesion. Benign pathology. No other issues. Suture removed. Follow-up p.r.n. [email or web address] Not available 01/07/2025 12:18:01 Plan of Treatment Reminders Order Date Submit [...] x10'3 /uL 4.2-10 .8 low Not Available [facility] (Lab) [address] [place], [address], 12/25/2024 19:22:06 12/26/1912/25/2024 CBC/C OMPLE TE BLD COUNT W/DIF F red blood cells 5.15 x10'6 /uL 4.10-5 .80 Not Available [facility] (Lab) [address] [place], [address], 12/25/2024 19:22:06 12/26/1912/25/2024 CBC/C OMPLE TE BLD COUNT W/DIF F hemoglobin 14.9 g/dL 13.2-1 7.0 Not Available [facility] (Lab) [address] [place], [address], 12/25/2024 19:22:06 12/26/1912/25/2024 CBC/C OMPLE TE BLD COUNT W/DIF F hematocrit 46.5 % 39.3-5 0.0 Not Available [facility] (Lab) [address] [place], [address], 12/25/2024 19:22:06 12/26/1912/25/2024 CBC/C OMPLE TE BLD COUNT W/DIF F mean red cell volume 90.3 fL 80.0-9 7.0 Not Available [facility] (Lab) [address] [place], [address], 12/25/2024 19:22:06 12/26/1912/25/2024 CBC/C OMPLE TE BLD COUNT W/DIF F mean red cell hemoglobin 28.9 pg 27.0-3 3.0 Not Available [facility] (Lab) [address] [place], [address], 12/25/2024 19:22:06 12/26/1912/25/2024 CBC/C OMPLE TE BLD COUNT W/DIF F mean RBC HGB concentratio n 32.0 g/dL 31.0-3 6.0 Not Available [facility] (Lab) [address] [place], [address], 12/25/2024 19:22:06 12/26/1912/25/2024 CBC/C OMPLE TE BLD COUNT W/DIF F red cell distribution width 14.9 % 11.8-1 5.5 Not Available [facility] (Lab) [address] [place], [address], 12/25/2024 19:22:06 12/26/1912/25/2024 CBC/C OMPLE TE BLD COUNT W/DIF F platelets 298 x10'3 /uL 150-40 0 Not Available [facility] (Lab) [address] [place], [address], 12/25/2024 19:22:06 12/26/1912/25/2024 CBC/C OMPLE TE BLD COUNT W/DIF F mean platelet volume 10.6 fL 9.0-12 .4 Not Available [facility] (Lab) [address] [place], [address], 12/25/2024 19:22:06 12/26/1912/25/2024 CBC/C OMPLE TE BLD COUNT W/DIF F neutrophils 38.2 % 39.0-7 2.0 low Not Available [facility] (Lab) [address] [place], [address], 12/25/2024 19:22:06 12/26/1912/25/2024 CBC/C OMPLE TE BLD COUNT W/DIF F lymphocytes 50.0 % 16.0-4 7.0 high Not Available [facility] (Lab) [address] [place], [address], 12/25/2024 19:22:06 12/26/1912/25/2024 CBC/C OMPLE TE BLD COUNT W/DIF F monocytes 10.9 % 5.0-12 .0 Not Available [facility] (Lab) [address] [place], [address], 12/25/2024 19:22:06 12/26/19 25 12/25/2024 CBC/C OMPLE TE BLD COUNT W/DIF F eosinophils 0.2 % 1.0-7. 0 low Not Available [facility] (Lab) [address] [place], [address], 12/25/2024 19:22:06 12/26/1912/25/2024 CBC/C OMPLE TE BLD COUNT W/DIF F basophils 0.5 % 0.0-2. 0 Not Available [facility] (Lab) [address] [place], [address], 12/25/2024 19:22:06 12/26/1912/25/2024 CBC/C OMPLE TE BLD COUNT W/DIF F immature granulocytes 0.2 % 0.00-0 .50 Not Available [facility] (Lab) [address] [place], [address], 12/25/2024 19:22:06 12/26/19 25 12/25/2024 CBC/C OMPLE TE BLD COUNT W/DIF F neutrophils, absolute count 1.53 x10'3 /uL 1.5-8. 0 Not Available [facility] (Lab) [address] [place], [address], 12/25/2024 19:22:06 12/26/1912/25/2024 CBC/C OMPLE TE BLD COUNT W/DIF F lymphocytes, absolute count 2.01 x10'3 /uL 1.07-3 .43 Not Available [facility] (Lab) [address] [place], [address], 12/25/2024 19:22:06 12/26/19 25 12/25/2024 CBC/C OMPLE TE BLD COUNT W/DIF F monocytes, absolute count 0.44 x10'3 /uL 0.29-0 .99 Not Available [facility] (Lab) [address] [place], [address], 12/25/2024 19:22:06 12/26/19 25 12/25/2024 CBC/C OMPLE TE BLD COUNT W/DIF F eosinophils, absolute count 0.01 x10'3 /uL 0.02-0 .53 low Not Available [facility] (Lab) [address] [place], [address], 12/25/2024 19:22:06 12/26/19 25 12/25/2024 CBC/C OMPLE TE BLD COUNT W/DIF F basophils, absolute count 0.02 x10'3 /uL 0.01-0 .08 Not Available [facility] (Lab) [address] [place], [address], 12/25/2024 19:22:06 12/26/19 25 12/25/2024 CBC/C OMPLE TE BLD COUNT W/DIF F immature granulocytes ,absolute 0.01 x10'3 /uL 0.00-0 .05 Not Available [facility] (Lab) [address] [place], [address], 12/25/2024 19:22:06 12/26/19 25 12/25/2024 CBC/C OMPLE TE BLD COUNT W/DIF F nucleated red blood cells 0.0 % -0 Not Available [facility] (Lab) [address] [place], [address], 12/25/2024 19:22:06 12/26/19 25 12/25/2024 CBC/C OMPLE TE BLD COUNT W/DIF F NRBC# 0.00 x10'3 /uL Not Available [facility] (Lab) [address] [place], [address], 12/25/2024 19:22:06 12/26/19 25 12/25/2024 LIPID PANEL cholesterol 214 mg/dL 140-19 9 high NIH MISSAEL NSUS RECOM MENDA TION FOR SAJAN STERO L: ADULT CHILD LOW RISK: <200 <170 BORDE RLINE : <200- 239 ----- HIGH RISK: >240 >200 Not Available [facility] (Lab) [address] [place], [address], 12/25/2024 19:45:40 12/26/1912/25/2024 LIPID PANEL triglyceride s 82 mg/dL 0-150 NIH MISSAEL NSUS REPOR T RECOM MENDA TION FOR TRIGL YCERI ALEJA: ADULT CHILD LOW RISK: <150 ----- BODER LINE: 150-1 99 ----- HIGH RISK: >200 ----- Not Available [facility] (Lab) [address] [place], [address], 12/25/2024 19:45:40 12/26/1912/25/2024 LIPID PANEL HDL cholesterol 90 mg/dL 40- Not Available [facility] (Lab) [address] [place], [address], 12/25/2024 19:45:40 12/26/1912/25/2024 LIPID PANEL LDL cholesterol, [...] WILL NOT BE REPOR DORA. Not Available [facility] (Lab) [address] [place], [address], 12/25/2024 19:45:40 12/26/1912/25/2024 COMPR EHENS SAMIRA METAB OLIC PANEL sodium 138 mmol/ L 137-14 5 Not Available [facility] (Lab) [address] [place], [address], 12/25/2024 19:45:50 12/26/19 25 12/25/2024 COMPR EHENS SAMIAR METAB OLIC PANEL potassium 4.4 mmol/ L 3.5-5. 1 Not Available [facility] (Lab) [address] [place], [address], 12/25/2024 19:45:50 12/26/19 25 12/25/2024 COMPR EHENS SAMIRA METAB OLIC PANEL chloride 102 mmol/ L 98-107 Not Available [facility] (Lab) [address] [place], [address], 12/25/2024 19:45:50 12/26/19 25 12/25/2024 COMPR EHENS SAMIRA METAB OLIC PANEL carbon dioxide 28 mmol/ L 22-30 Not Available [facility] (Lab) [address] [place], [address], 12/25/2024 19:45:50 12/26/19 25 12/25/2024 COMPR EHENS SAMIRA METAB OLIC PANEL anion gap 12.4 mmol/ L 14-22 low Not Available [facility] (Lab) [address] [place], [address], 12/25/2024 19:45:50 12/26/19 25 12/25/2024 COMPR EHENS SAMIRA METAB OLIC PANEL glucose 97 mg/dL 70-99 Not Available [facility] (Lab) [address] [place], [address], 12/25/2024 19:45:50 12/26/19 25 12/25/2024 COMPR EHENS SAMIRA METAB OLIC PANEL BUN 10 mg/dL 8-19 Not Available [facility] (Lab) [address] [place], [address], 12/25/2024 19:45:50 12/26/19 25 12/25/2024 COMPR EHENS SAMIRA METAB OLIC PANEL creatinine 1.00 mg/dL 0.66-1 .25 Not Available [facility] (Lab) [address] [place], [address], 12/25/2024 19:45:50 12/26/1912/25/2024 COMPR EHENS SAMIRA METAB OLIC PANEL GFR >60 Refer ence Range : [place] GFR Healt hy Adult : >60 [...] or ethni c subgr oups, such as Hismichael nics. Outsi de the valid ated ochoa [...] calcu lator is avail able on the [facility] websi te: [email or web address] :[email or web address] [email or web address].[email or web address] [email or web address].o rg/pr ofess ional s/kdo qi/gf r_cal culat or Not Available [facility] (Lab) [address] [place], [address], 12/25/2024 19:45:50 12/26/1912/25/2024 COMPR EHENS SAMIRA METAB OLIC PANEL alkaline phosphatase 57 U/L 38-126 Not Available [facility] (Lab) [address] [place], [address], 12/25/2024 19:45:50 12/26/19 25 12/25/2024 COMPR EHENS SAMIRA METAB OLIC PANEL alanine aminotransfe rase 24 U/L 0-50 Not Available [facility] (Lab) [address] [place], [address], 12/25/2024 19:45:50 12/26/19 25 12/25/2024 COMPR EHENS SAMIRA METAB OLIC PANEL aspartate aminotransfe rase 33 U/L 15-46 Not Available [facility] (Lab) [address] [place], [address], 12/25/2024 19:45:50 12/26/19 25 12/25/2024 COMPR EHENS SAMIRA METAB OLIC PANEL bilirubin, total 1.10 mg/dL 0.20-1 .30 Not Available [facility] (Lab) [address] [place], [address], 12/25/2024 19:45:50 12/26/19 25 12/25/2024 COMPR EHENS SAMIRA METAB OLIC PANEL calcium 10.2 mg/dL 8.4-10 .2 Not Available [facility] (Lab) [address] [place], [address], 12/25/2024 19:45:50 12/26/19 25 12/25/2024 COMPR EHENS SAMIRA METAB OLIC PANEL total protein 7.9 g/dL 6.3-8. 2 Not Available [facility] (Lab) [address] [place], [address], 12/25/2024 19:45:50 12/26/19 25 12/25/2024 COMPR EHENS SAMIRA METAB OLIC PANEL albumin 4.7 g/dL 3.4-5. 0 Not Available [facility] (Lab) [address] [place], [address], 12/25/2024 19:45:50 12/26/19 25 12/25/2024 COMPR EHENS SAMIRA METAB OLIC PANEL globulin 3.2 g/dL 2.6-4. 2 Not Available [facility] (Lab) [address] [place], [address], 12/25/2024 19:45:50 12/26/19 25 12/25/2024 COMPR EHENS SAMIRA METAB OLIC PANEL A/G ratio 1.5 ratio 1.0-2. 0 Not Available [facility] (Lab) [address] [place], [address], 12/25/2024 19:45:50 12/26/19 25 12/25/2024 HEPAT ITIS ACUTE PANEL hepatitis A IgM antibody NON-RE ACTIVE non-re active For sampl es repor dora as Borrodriguezine React samira for HAV IgM, it is recom lucy d a new speci men be obtai oziel in 2 weeks and retes dora. Not Available [facility] (Lab) [address] [place], [address], 12/25/2024 20:38:15 12/26/19 25 12/25/2024 HEPAT ITIS ACUTE PANEL hepatitis A virus signal/cutof 0.01 0.00-0 .79 Not Available [facility] (Lab) [address] [place], [address], 12/25/2024 20:38:15 12/26/19 25 12/25/2024 HEPAT ITIS ACUTE PANEL hepatitis B core IgM antibody NON-RE ACTIVE non-re active Not Available [facility] (Lab) [address] [place], [address], 12/25/2024 20:38:15 12/26/19 25 12/25/2024 HEPAT ITIS ACUTE PANEL HBV core IgM signal/cutof f 0.03 0.00-1 .10 Not Available [facility] (Lab) [address] [place], [address], 12/25/2024 20:38:15 12/26/19 25 12/25/2024 HEPAT ITIS ACUTE PANEL hepatitis B surface antigen NON-RE ACTIVE non-re active All speci mens react samira for Hepat itis B Surfa ce Antig en will refle x to refer ral lab confi rmato ry testi ng. Not Available [facility] (Lab) [address] [place], [address], 12/25/2024 20:38:15 12/26/19 25 12/25/2024 HEPAT ITIS ACUTE PANEL HBV surf.antigen signal/cutof f 0.07 0.00-0 .99 Not Available [facility] (Lab) [address] [place], [address], 12/25/2024 20:38:15 12/26/19 25 12/25/2024 HEPAT ITIS ACUTE PANEL hepatitis C antibody NON-RE ACTIVE non-re active All speci mens react samira for Hepat itis C Virus antib hao will refle x to PCR confi rmato ry testi ng. Pleas e allow 48-72 hours for resul ts. Not Available [facility] (Lab) [address] [place], [address], 12/25/2024 20:38:15 12/26/19 25 12/25/2024 HEPAT ITIS ACUTE PANEL hepatitis C virus signal/cutof 0.05 0.00-0 .99 Not Available [facility] (Lab) [address] [place], [address], 12/25/2024 20:38:15 12/26/19 25 12/25/2024 TSH W/REF JAMAL FT4 TSH with reflex free T4 2.100 uIU/m L 0.465- 4.680 Not Available [facility] (Lab) [address] [place], [address], 12/25/2024 20:34:36 12/26/19 25 12/25/2024 PSA SCREE N PSA medicare screen 2.44 NG/mL 0.00-4 .00 Not Available [facility] (Lab) [address] [place], [address], 12/25/2024 20:34:41 12/26/19 25 12/25/2024 TRICH OMONA S VAGIN CORNELL DNA, PCR trichomonas vaginalis DNA NOT DETECT ED not detect ed Not Available [facility] (Lab) [address] [place], [address], 12/25/2024 21:05:31 12/26/19 25 12/25/2024 CT/NG (CHLA MYDIA /NEIS SERIA ) DNA chlamydia trachomatis DNA NOT DETECT ED not detect ed Not Available [facility] (Lab) [address] [place], [address], 12/25/2024 21:21:48 12/26/19 25 12/25/2024 CT/NG (CHLA MYDIA /NEIS SERIA ) DNA neisseria gonorrhea DNA NOT DETECT ED not detect ed Not Available [facility] (Lab) [address] [place], [address], 12/25/2024 21:21:48 12/26/19 25 12/25/2024 HIV COMBO : HIV 1/2 AB,P2 4 AG HIV combo assay NON-RE ACTIVE nonrea ctive The HIV combo test scree ns for HIV-1 , HIV-2 , HIV p24 Ag, and HIV group O. Any react samira scree n resul t will be sent for PCR confi rmato ry testi ng. Not Available [facility] (Lab) [address] [place], [address], 12/25/2024 21:29:43 12/26/19 25 12/25/2024 HIV COMBO : HIV 1/2 AB,P2 4 AG signal/cutof f 0.26 0.00-0 .99 Not Available [facility] (Lab) [address] [place], [address], 12/25/2024 21:29:43 12/26/19 25 12/27/2024 HERPE S/HSV 1 hsv type 1 IgG Non Reacti ve non reacti ve Ple ase note refer ence inter diana blackwell e HSV-1 IgG testi ng perfo rmed using the [facility] HSV- 1 IgG assay . Not Available [facility] (Lab) [address] [place], [address], 12/27/2024 08:12:41 12/26/1912/27/2024 HERPE S/HSV 1 hsv [...] HSV-2 IgG assay . Perfo rmed at: [facility] [address] [facility] [place], [place] [address] Lab Direc tor: Franklin turner PhD, Phone : [phone] Not Available [facility] (Lab) [address] [place], [address], 12/27/2024 08:12:41 12/26/19 25 12/27/2024 RPR WITH REFLE X TO RPR TITER RPR with reflex to RPR titer Reacti ve non reacti ve abnormal Perfo rmed at: - [facility] [address] [facility] [place] [address] Lab Direc tor: Franklin turner PhD, Phone : [phone] Not Available [facility] (Lab) [address] [place], [address], 12/27/2024 13:11:11 12/26/19 25 12/27/2024 RPR WITH REFLE X TO RPR TITER RPR with reflex to RPR titer Reacti ve non reacti ve abnormal Perfo rmed at: - [facility] [address] [place] [address] Lab Direc tor: Franklin turner PhD, Phone : [phone] Not Available [facility] (Lab) [address] [place], [address], 12/27/2024 13:11:12 12/26/1912/27/2024 RPR WITH REFLE X TO RPR TITER RPR titer 1:1 titer nonrea <1:1 abnormal Perfo rmed at: - [facility] [address] [place] [address] Lab Direc tor: Franklin turner PhD, Phone : [phone] Not Available [facility] (Lab) [address] [place], [address], 12/27/2024 13:11:12 Result Notes None recorded. Problems Name Problem SNOMED Code Status Onset Date Resolution Date Notes Provider Name and Address Organization Details Recorded Time Essential hypertension 74124620 Active 2024 Jeniffer noonan MD [address] [place], [address], [employer] 09:28:54 Skin lesion 45648442 Active 2024 Jeniffer noonan MD [address], [place], [address], [employer] 14:39:16 Smoker 24828693 Active 2024 Jeniffer noonan MD [address] [place], [address], [employer] 15:00:25 Hyperlipidemia 09652584 Active 2024 SARA Salinas null, [facility] [employer] [facility] 15:19:05 Syphilis test finding 331479302 Active 2024 SARA Salinas null, [facility] 15:20:04 Seborrheic keratosis 631079729 Active 2024 Tree boone MD [address], [place], [address], [facility] [employer] [facility] 14:39:33 Mild depression 829000123 Active 2024 Jeniffer noonan MD [address], [address], [place], [address], [facility] 11:52:55 Dysphagia 68405760 Active 2024 Jeniffer noonan MD [address], [address], [place], [address], [facility] 11:05:08 Problem Notes None recorded. Procedures Surgical History Date Name Laterality Status Provider Name and Address Organization Details Recorded Time 01/01/20 25 Excision Cyst Multilayer completed Tree paz MD [address] [facility], [address], [place], [address], [facility] 12/31/2024 12:34:20 cataract extraction and implantation of intraocular lens completed Dorothy Jeffers MA [facility] 12/25/2024 14:21:23 Imaging Results None recorded. Procedure [...] Last Updated DateTime 172.72 cm 27.2 kg/m2 78916.0 3 g 78 /min 99 % 150/80 mm[Hg] SARA Bowling [employer] 11:44:11 Social History Question Answer Notes LastModified by Organizat ion Details LastModified Time Tobacco Smoking Status Never Smoker MICH Lynn, [employer] 12/25/2024 14:18:20 What Is Your Level Of [...] not available 12/25/2024 Where [facility] You Live[facility] Information not available 12/25/2024 What Was [...] anxious, or unable to sleep at night)? [id number] Information not available 12/25/2024 Family History Relationship [...] 50 mcg/0.25mL dose 10/01/2020 completed Not Available [facility] 5 11:03:47 COVID-19, mRNA, LNP-S, PF, 100 mcg/0.5mL dose or 50 mcg/0.25mL dose 10/29/2020 completed Not Available [facility] 5 11:03:47 COVID-19, mRNA, LNP-S, PF, 100 mcg/0.5mL dose or 50 mcg/0.25mL dose 05/11/2021 completed Not Available [facility] 5 11:03:47 Past Encounters Encounter ID Performer Location Encounter Start Date Encounter Closed Date Diagnosis/Indication Diagnosis SNOMED-CT Code Diagnosis ICD10 Code Diagnosis IMO Codes Diagnosis Note [id number] Jeniffer smith MD [facility] Primary Care [address] [place] [address] 12/25/2024 14:05:21 12/25/2024 14:48:29 Screening due 907713102 Z13.9 20590606 C-scope: States that he did do this [...] above Screening for malignant neoplasm of colon 553955872 Z12.11 190295 Essential hypertension 38426628 I10 78608 On amlodipine Readily admits to being non compliant, advised to take his medication dailyGet labs Screening for malignant neoplasm of prostate 493876831 Z12.5 425389 Venereal d isease screening 361083312 Z11.3 6854291 Skin lesion 12340841 L98 .9 [address]205 Dark irregular shaped mole noted on the R yarsani areaRefer to Dr Busby Smoker 46091292 F17.200 791939 Rarely smokes cigarsAdvi sed to cut back and stopUS AAA at age 66 years [id number] Tree nunez MD [facility] General Surgery [address] [place] [address] 12/31/2024 12:05:04 12/31/2024 12:35:08 Skin lesion 43050712 L98.9 37070 yarsani right [id number] Tree nunez MD [facility] General Surgery [address] [facility] [address] [place] [address] 01/07/2025 11:40:59 01/07/2025 12:28:50 Seborrheic keratosis 791421830 L82.1 20043 Removal of sutures done 0548977560 02096 Z48.02 9082379 Health Concerns Section Related Observation LastModified by Organization Detai ls LastModified Time None Recorded Concern Status LastModified by Organization Details LastModified Time None Recorded Payers Encounter Date Sequence Insurance Name Policy Number Policy Echeverria Covered Member ID Echeverria Member ID Guarantor Name 01/07/2025 1 [facility] - DOS ON OR AFTER 2024 (MEDICAID REPLACEMENT - HMO) [id number] Raúl Minor [id number] Raúl De La Garza Notes Date Note Type Note Provider Name and Address Organization Details Recorded Time 01/07/2025 text/html no complaints Tree uGpta MD [address], [address], [place], [address], [place] [facility] 01/09/2025 14:39:48
--- OUTSIDE RECORDS SUMMARY | 2025-04-01 21:48 | XMS_ITS | Clinical Summary ---
Author Organization [facility] Address [address] [place] [address] Care Team Providers Care Pipe Stem Sawyer Name Role Phone Unavailable Primary Care Provider Unavailabl e Source Comments [facility],non-owned Affiliates and Associated Physician Practices is amultiple site organization consisting of ambulatory clinics and hospital sitesin [place], [place], [place] and [place]. This disclosure is being madepursuant to the Care Everywhere program and may not contain all information available regarding this patient. Last updated 18.[email or web address] Allergies No known active allergies Medications * [...] DEPRESSION SCREENING 05/01/2024 COVID-19 VACCINE (1 - 2024-2 6 season) 2024 INFLUENZA VACCINE (#1) 2024 HIB [...]
--- OUTSIDE RECORDS SUMMARY | 2025-04-01 21:48 | XMS_ITS | Clinical Summary ---
Author Organization 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
--- OUTSIDE RECORDS SUMMARY | 2025-04-01 21:48 | XMS_ITS | Data Portability ---
Author Organization [facility] Address [address] [place] [address] Care Team Providers Care Line Helper Name Role Phone NUBIA MARIA Primary Care Provider [phone] Assessment No assessment recorded. Plan of Treatment Reminders Order Date Submit Date Provider Last Modified By Organization Details Last Modified Time Details Appointments ANY 15 2025 11:00A M Michael Chapa MD Not available Not available Not available Lab TSH, serum or plasma 2024 026 [email or web address] [facility], [address], [address], 03/14/2025 11:40:23 CBC 2024 026 [email or web address] [facility], [address], [address], 03/14/2025 11:40:23 lipid panel, serum 2024 026 [email or web address] [facility], [address] [facility] [address], [address], 03/14/2025 11:40:23 CMP, serum or plasma 2024 026 [email or web address] [facility], [address] [facility] [address], [address], 03/14/2025 11:40:23 HbA1c (hemoglob in A1c), blood 2024 026 [email or web address] [facility], [address] [facility], [place], [address], 03/14/2025 11:40:23 Referral None recorded. Procedures None recorded. Surgeries None recorded. Imaging electroca rdiogram 2024 025 In-Office Order, Internal Use Only DO Not Attach Compendium DO Not Attach Compendium, Do Not Delete/merge, [id number] 03/14/2025 11:40:22 US, echocardi ogram, transthor acic, complete, w/ color flow 2024 [facility], [address] , [facility] [address], [place], [address], 03/14/2025 14:20:45 Medication Orders None recorded. Patient TargetsNo targets recorded. Patient Instructions Encounter Date Encounter Id Patient Instructions Last Modified By Organization Details Last Modified Time 03/14/2025 [id number] Quitting Tobacco : Care Instructions [email or web address] Not available 03/14/2025 11:40:23 Reason for Referral None Reported. Results Created Date Observation Date Name Description Value Unit Range Abnormal Flag Note LastModifiedBy Organization Detail LastModifiedTime 03/14/2003/14/2025 [facility] am No observ ation record ed. ANDREW In-Office Order Internal Use Only DO Not Attach Compendium DO Not Attach Compendium, Do Not Delete/merge, [id number] 03/14/2025 12:07:41 03/14/20 [facility] ([facility]3] brianna heart am No observ ation record ed. [email or web address] Not Available 2024 16:35:06 Result Notes None recorded. Medical Equipment None Reported. Medications Name Sig Start Date Stop Date Status Note LastModified by Organization Details LastModified Time amlodipine 10 mg daily active Not Available Not Available No t Available Vitals Date Recorded Body weight Body mass index (BMI) Body height Heart rate Oxygen saturation Systolic And Diastolic Provider Name and Address Organization Details Last Updated DateTime 48880.2 6 g 22.7 kg/m2 172.72 cm 74 /min 97 % 140/78 mm[Hg] [facility] 11:24:29 Social History Question Answer Notes LastModified by Organizat ion Details LastModified Time Tobacco Smoking Status Current Every Day Smoker Michael Chapa MD Attn: Accounting,[address] [facility], [place], [address], [place] [facility] 03/14/2025 16:45:45 What Was The Date Of Your Most Recent Tobacco Screening? 03/14/2025 Information not available 03/14/2025 Has Tobacco Cessation Counseling Been Provided? Yes Information not available 03/14/2025 On What Date Was Tobacco Cessation Counseling Provided? 03/14/2025 Information not available 03/14/2025 Sex: Male Functional Status None recorded. Mental Status None recorded. Family History Nothing Reported. Medical History No medical history recorded. Immunizations Vaccine Type Date Status Note Provider Nam e and Address Organization Details Recorded Time COVID-19, mRNA, LNP-S, PF, 100 mcg/0.5mL dose or 50 mcg/0.25mL dose 10/01/2020 completed Not Available [facility] 5 10:50:59 COVID-19, mRNA, LNP-S, PF, 100 mcg/0.5mL dose or 50 mcg/0.25mL dose 10/29/2020 completed Not Available [facility] 5 10:50:59 COVID-19, mRNA, LNP-S, PF, 100 mcg/0.5mL dose or 50 mcg/0.25mL dose 05/11/2021 completed Not Available [facility] 5 10:50:59 Past Encounters Encounter ID Performer Location Encounter Start Date Encounter Closed Date Diagnosis/Indication Diagnosis SNOMED-CT Code Diagnosis ICD10 Code Diagnosis IMO Codes Diagnosis Note [id number] Michael Chapa MD [facility] [place] [address] [place] [address] 03/14/2025 10:50:05 03/17/2025 10:59:52 Dyspnea on exertion 49917671 R06.09 I11.9 [id number] His electrocar diogram shows evidence of hypertensi ve heart disease. In light of exertional dyspnea we will obtain an echocardio gram.Will need low-sodium diet, ambulatory blood pressure monitoring and reaching out to care team if blood pressure numbers remain suboptimal (under 100/60, over 140/90) or if symptoms. Mixed hyperlipidemia 267 [id number] E78.2 31495 Encouraged to bring his pill bottle at the next office visit so we can verify his pharmacoth erapy for hyperlipid emia. Low-choles terol diet reviewed. Obtain labs as outlined below. Smoker [id number] F17.200 [id number] Discussed cardiovasc ular risks of ongoing nicotine use. Reinforced importance of complete nicotine cessation for cardiovasc ular risk reduction amongst other health benefits. Currently declines need for pharmacoth erapy. Encouraged ongoing discussion s with care team including PCP for additional resources to achieve the goal of complete nicotine cessation. We will request a close interval follow-up with results of above-ment ioned cardiac testing. On behalf of the Cardiovasc ular Services at [facility] , we appreciate the opportunit y to participat e in the care of your patient. Please feel free to reach out to us for any questions regarding your patient's cardiac care. Michael Chapa MD, [facility] , Cardiology Ph: [phone]: Precordial pain [phone] R07.2 57406 Based on findings of echocardio gram we will consider stress testing versus anatomic evaluation for CAD. I discussed with him regarding red flag symptoms to seek sooner medical attention in the interim in case of any persistent or worsening symptoms. Essential hypertension [id number] I10 67425 He will continue amlodipine 10 mg daily for management of hypertensi on. Will need low-sodium diet, ambulatory blood pressure monitoring and reaching out to care team if blood pressure numbers remain suboptimal (under 100/60, over 140/90) or if symptoms. Health Concerns Section Related Observation LastModified by Organization Detai ls LastModified Time None Recorded Concern Status LastModified by Organization Details LastModified Time None Recorded Advance Directives Directive None Recorded Payers Insurance Date Sequence Insurance Name Policy Number Policy Echeverria Covered Member ID Ecehverria Member ID Guarantor Name 03/18/2025 1 [employer] [employer] - DOS ON OR AFTER 2024 (MEDICAID REPLACEMENT - HMO) [id number] Raúl De La Garza [id number] Raúl De La Garza Notes Date Note Type Note Provider Name and Address Organization Details Recorded Time 5 text/html ROS as noted in the HPI I had the pleasure of seeing this patient as a new consultation from Dr. Maria for recommendations regarding evaluation and management of hypertension and cardiac etiologies of dyspnea. 59 year old with cardiac risk factors as outlined below. He has been noticing increasing exertional dyspnea over the last 6 months. He reports sharp left-sided chest pain which is occasionally brought on by activity with no other aggravating or alleviating features. He denies any palpitations, presyncope or syncope. He denies any history of DVT /PE. He reports he is on a statin for management of hyperlipidemia but does not remember the name. He reports he is on amlodipine 10 mg daily for management of hypertension. He does not check his blood pressures regularly at home. Cardiac history/risk profile:HypertensionMixed hyperlipidemiaFamily history of CAD in his brother in his early 50sNicotine dependence Cardiac diagnostics:12 lead EKG, 03/14/2025: Sinus rhythm, voltage criteria for LVH, lateral ST-T changes Michael Chapa MD Attn: Accounting,[address] [place], [address], [facility] 03/14/2025 16:45:50
--- NOTE | 2025-04-01 23:59 | ED_ITS ---
HPI - General Adult General Chief complaint: Unspecified Stated complaint: food bolus Time Seen by Provider: 04/01/25 23:34 Source: patient Mode of arrival: ambulatory Limitations: no limitations History of Present Illness HPI narrative: Patient is a 59-year-old male presents to the emergency department complaining possible food bolus stuck in his neck region while eating gizzards around 7 PM. Denies any bones being present. Patient admits to a similar incident like this about a month ago and had to have a an EGD done to remove it. Patient notes that he is getting into a parts cleaner in the next few months, the parts cleaner here do not take his insurance. Patient admits to being able to tolerate some liquids since he felt like it got stuck. Denies any recent injuries or recent illness. Denies any chest pain or difficulty breathing. Related Data Allergies Allergy/AdvReac Type Severity Reaction Status Date / Time No Known Allergies Allergy Verified 02/28/25 14:14 Review of Systems 2 Review of Systems: A 10 system review of systems was completed on the patient and is negative except for what is stated in the HPI. Nursing and ancillary documentation was reviewed. [facility] Past Medical History Medical History (Updated 04/02/25 @ 00:54 by Tadeo Marshall DO) Food impaction of esophagus Hypertension GERD (gastroesophageal reflux disease) Allergies Surgical History Surgical History H/O eye surgery Family History Family History Mother Asthma Bone cancer Heart problem Cerebrovascular accident Sibling Asthma Bone cancer Hypertension Depression Anxiety Heart problem Social History Social History Smoking packs per day: 0.5 Smoking cigarettes per day: 10.0 Smoking status: Current every day smoker Tobacco type: cigarettes Alcohol intake: current Alcohol use details: 2 drinks per day Substance use: never Substance use type: does not use Lack of Transportation: No Lack of Food: Never True Current Housing: I Have Housing Concerned About Future Housing: No Difficulty Paying Gas/Electric Bills: No Difficulty Paying for Meds: No Living arrangements: alone Gender identity (if verbalized by the patient): Male Exam 2 Narrative: CONST: No acute distress. Well nourished. HENMT: Head is normocephalic and atraumatic. Moist mucous membranes. No posterior oropharynx erythema. No drooling. No dysphonia. EYES: No scleral icterus. No conjunctival injection or pallor. PERRL. NECK: No meningeal signs. No crepitus. No stridor. RESP: Able to speak in full sentences. Normal respiratory effort. CTAB. CARDIO: Regular rate. Regular rhythm. 2+ DP and radial pulses bilaterally. GI: Nondistended. No tenderness to palpation. Soft. : No CVA tenderness to palpation. SKIN: No rashes or lesions noted on exposed skin. NEURO: Oriented x3. Moves all extremities. EXTREM/MSK/BACK: No pedal edema. PSYCH: Normal affect. Course Vital Signs Vital signs: Vital Signs Temperature 98.6 F 04/01/25 21:55 Pulse Rate 96 04/01/25 21:55 Respiratory Rate 18 04/01/25 21:55 Blood Pressure 151/73 H 04/01/25 21:55 Pulse Oximetry 100 04/01/25 21:55 Oxygen Delivery Room Air 04/01/25 21:55 Temperature 98.3 F 04/02/25 03:01 Pulse Rate 64 04/02/25 03:01 Respiratory Rate 16 04/02/25 03:01 Blood Pressure 119/60 04/02/25 03:01 Pulse Oximetry 100 04/02/25 03:01 Oxygen Delivery Room Air 04/01/25 21:55 [facility] Narrative Medical decision making narrative: Patient presents with the above complaint. Initial vitals are remarkable for no significant abnormalities. Physical examination as noted above. Plan discussed: Laboratory analysis, chest x-ray, neck x-ray, carbonated beverage, glucagon. After initial interventions patient still having the sensation of the food bolus being stuck. I spoke with Gastroenterology on-call Dr. Nagy notes plan to take patient for EGD at 6:00 a.m., hold in the ER until then, would anticipate discharging him home after EGD. Patient demonstrates understanding and agreement with plan of care. Differential Diagnosis Differential Diagnosis: Food impaction, esophagitis. Medical Records I have reviewed the following patient records and this information was taken into consideration when formulating the assessment and plan.: previous ER visits (Patient had an EGD done it removed check and from the esophagus, did have inflammation, no dilation was performed.) Lab Data MDM Lab Attestation statement: I personally reviewed the patient's lab results. Lab results narrative: CBC reveals a hemoglobin of 12.8. Comprehensive metabolic panel is without any significant abnormalities. 04/02/25 00:15 04/02/25 00:15 Labs: Lab Results 04/02/25 Range/Units 00:15 WBC 5.9 (4.5-10.0) K/mm3 RBC 4.41 L (4.6-6.20) M/mm3 Hgb 12.8 L (14.0-18.0) g/dL Hct 39.3 L (42.0-52.0) % MCV 89.1 (80-100) fl MCH 29.0 (26-34) pg MCHC 32.6 (32-36) g/dl RDW 14.6 H (11.5-14.5) % Plt Count 247 (150-375) k/mm3 MPV 9.7 (7.4-10.4) fl Immature Gran % (Auto) 0.3 (0-0.5) % Neut % (Auto) 81.4 H (45.5-73.1) % Lymph % (Auto) 11.9 L (18.3-44.2) % [place] % (Auto) 6.1 (2.6-8.5) % Eos % (Auto) 0.0 (0-4.4) % Baso % (Auto) 0.3 (0.2-1.2) % Lymph # (Auto) 0.70 L (0.9-3.2) K/mm3 [place] # (Auto) 0.4 (0.1-0.6) K/mm3 Eos # (Auto) 0.0 (0-0.3) K/mm3 Baso # (Auto) 0.0 (0.0-0.1) K/mm3 Abs Immat Gran (auto) 0.02 (0.00-0.031) K/mm3 Absolute Neuts (auto) 4.8 (1.3-6.7) K/mm3 Absolute Nucleated RBC 0.000 (0.0-0.012) K/mm3 Nucleated RBC % 0.0 (0.0-0.2) % Sodium 137 (137-145) mmol/L Potassium 4.0 (3.4-5.0) mmol/L Chloride 107 (98-107) mmol/L Carbon Dioxide 25 (22-30) mmol/L Anion Gap 5 (4-12) mmol/L BUN 15 (9-20) mg/dL Creatinine 0.89 (0.7-1.3) mg/dL Estim Creat Clear Calc 77 ml/min Estimated GFR > 60 (59 - ) Glucose 109 (65-110) mg/dL Calcium 9.6 (8.4-10.2) mg/dL Total Bilirubin 0.6 (0.2-1.3) mg/dL AST 31 (17-59) U/L ALT 25 (6-50) U/L Alkaline Phosphatase 54 (38-126) U/L Total Protein 7.8 (6.3-8.2) g/dL Albumin 4.5 (3.5-5.1) g/dL Imaging Data Attestation: I personally reviewed and interpreted this imaging study as follows: My impression: No acute cardiopulmonary abnormality in the chest x-ray and no obvious foreign body on the neck x-ray. Discharge Plan Discharge Clinical Impression: Food impaction of esophagus Qualifiers: Encounter type: initial encounter Qualified Code(s): T18.128A - Food in esophagus causing other injury, initial encounter Patient Disposition: Still a Patient Condition: Stable Time of Disposition: 00:54
[2025-04-02] VITALS (16 sets, daily range): BP systolic 117–145; BP diastolic 49–86; PULSE 63–88; RESP 16–28; TEMP 36.7–37.1; O2SAT 99–100
[2025-04-02] MEDS: GLUCAGON FOR INJ 1 MG VIAL IM (00:17)
[2025-04-02 00:32] LABS: Alanine Aminotransferase 25 U/L (6-50); Albumin Level 4.5 g/dL (3.5-5.1); Alkaline Phosphatase 54 U/L (38-126); Anion Gap 5 mmol/L (4-12); Aspartate Amino Transferase 31 U/L (17-59); Bilirubin,Total 0.6 mg/dL (0.2-1.3); Blood Urea Nitrogen 15 mg/dL (9-20); Calcium 9.6 mg/dL (8.4-10.2); Carbon Dioxide 25 mmol/L (22-30); Chloride 107 mmol/L (98-107); Estimated CRCL calculation 77 ml/min; Estimated Glomerular Filt Rate > 60; Glucose 109 mg/dL (65-110); Potassium 4.0 mmol/L (3.4-5.0); Sodium 137 mmol/L (137-145); Total Protein 7.8 g/dL (6.3-8.2)
[2025-04-02 00:34] LABS: Hematocrit 39.3 % (42.0-52.0); Hemoglobin 12.8 g/dL (14.0-18.0); Immature Granulocyte Percent A 0.3 % (0-0.5); Lymphocytes Absolute Auto 0.70 K/mm3 (0.9-3.2); Mean Corpuscular HGB Conc 32.6 g/dl (32-36); Mean Corpuscular Hemoglobin 29.0 pg (26-34); Mean Corpuscular Volume 89.1 fl (80-100); Nucleated Red Blood Cells Absolute Auto 0.000 K/mm3 (0.0-0.012); Nucleated Red Blood Cells Perc 0.0 % (0.0-0.2); Platelet Count Result 247 k/mm3 (150-375); Red Blood Count 4.41 M/mm3 (4.6-6.20); White Blood Count 5.9 K/mm3 (4.5-10.0)
--- OUTSIDE RECORDS SUMMARY | 2025-04-02 03:12 | XMS_ITS | Clinical Summary ---
Author Organization [facility] Address [address] [place] [address] Care Team Providers Care Hardwood Faller Name Role Phone Unavailable Primary Care Provider Unavailabl e Social History Tobacco Use Types Packs/Day Years [...] Vaccines (1 of 2) 2016 COVID-19 Vaccine (2024-2 6 season) 2024 Influenza Adult (#1) 2025 [...]
--- OUTSIDE RECORDS SUMMARY | 2025-04-02 03:12 | XMS_ITS | Clinical Summary ---
Author Organization [facility] Address [address] [place] [address] Care Team Providers Care Imcu Nurse Name Role Phone Unavailable Primary Care Provider Unavailabl e Source Comments [facility],non-owned Affiliates and Associated Physician Practices is amultiple site organization consisting of ambulatory clinics and hospital sitesin [place], [place], [place] and [place]. This disclosure is being madepursuant to the Care Everywhere program and may not contain all information available regarding this patient. Last updated 18.[facility] [employer] Allergies No known active allergies Medications * [...]
[2025-04-02] MEDS: SIMETHICONE ORAL SUSPENSION 20 MG/0.3 ML 30 ML BOTTLE 1.8 ML PO (05:44)
[2025-04-02] MEDS: LACTATED RINGERS 1,000 ML 150 ML IV CONT (05:45)
--- NOTE | 2025-04-02 06:00 | WPDANESEPPF ---
Anes - Initial Pre Proc Eval Procedure: Operation Date: 04/02/25 04:55 Proposed Procedures p Esophagogastroduodenoscopy - Lacho Nagy MD Date/Time: 04/02/25 06:00 Surgeon: Lacho Nagy MD Pre Op Diagnosis: Food bolus Pre Op Diagnosis: food bolus Patient Data Age: 59 Gender: M Height: 1.73 m Weight: 81.3 kg Last Vital Signs Temp 36.7 C 04/02/25 05:33 Pulse 63 04/02/25 05:33 Resp 19 04/02/25 05:33 BP 144/86 H 04/02/25 05:33 Pulse Ox 100 04/02/25 05:33 O2 Del Method Room Air 04/02/25 05:33 Allergies Allergy/AdvReac Type Severity Reaction Status Date / Time No Known Allergies Allergy Verified 04/02/25 05:31 Home Medications ?Medication ?Instructions ?Recorded ?Confirmed ?Type amlodipine 10 mg tablet 10 mg PO DAILY #30 tabs 11/11/24 04/02/25 Rx rosuvastatin 40 mg tablet 40 mg PO DAILY 04/02/25 04/02/25 History sertraline 25 mg tablet 25 mg PO DAILY 04/02/25 04/02/25 History Laboratory Tests 04/02/25 00:15 WBC 5.9 K/mm3 (4.5-10.0) RBC 4.41 L M/mm3 (4.6-6.20) Hgb 12.8 L g/dL (14.0-18.0) Hct 39.3 L % (42.0-52.0) MCV 89.1 fl (80-100) MCH 29.0 pg (26-34) MCHC 32.6 g/dl (32-36) RDW 14.6 H % (11.5-14.5) Plt Count 247 k/mm3 (150-375) MPV 9.7 fl (7.4-10.4) Immature Gran % (Auto) 0.3 % (0-0.5) Neut % (Auto) 81.4 H % (45.5-73.1) Lymph % (Auto) 11.9 L % (18.3-44.2) [place] % (Auto) 6.1 % (2.6-8.5) Eos % (Auto) 0.0 % (0-4.4) Baso % (Auto) 0.3 % (0.2-1.2) Lymph # (Auto) 0.70 L K/mm3 (0.9-3.2) [place] # (Auto) 0.4 K/mm3 (0.1-0.6) Eos # (Auto) 0.0 K/mm3 (0-0.3) Baso # (Auto) 0.0 K/mm3 (0.0-0.1) Abs Immat Gran (auto) 0.02 K/mm3 (0.00-0.031) Absolute Neuts (auto) 4.8 K/mm3 (1.3-6.7) Absolute Nucleated RBC 0.000 K/mm3 (0.0-0.012) Nucleated RBC % 0.0 % (0.0-0.2) Sodium 137 mmol/L (137-145) Potassium 4.0 mmol/L (3.4-5.0) Chloride 107 mmol/L (98-107) Carbon Dioxide 25 mmol/L (22-30) Anion Gap 5 mmol/L (4-12) BUN 15 mg/dL (9-20) Creatinine 0.89 mg/dL (0.7-1.3) Estim Creat Clear Calc 77 ml/min Estimated GFR > 60 (59 - ) Glucose 109 mg/dL (65-110) Calcium 9.6 mg/dL (8.4-10.2) Total Bilirubin 0.6 mg/dL (0.2-1.3) AST 31 U/L (17-59) ALT 25 U/L (6-50) Alkaline Phosphatase 54 U/L (38-126) Total Protein 7.8 g/dL (6.3-8.2) Albumin 4.5 g/dL (3.5-5.1) Patient hx anesthesia problems: none Family hx anesthesia problems: none Results Review: All pre-operative results and documents have been reviewed as part of the pre-operative evaluation. [facility] Past Medical History Medical History Food impaction of esophagus Hypertension GERD (gastroesophageal reflux disease) Allergies Surgical History Surgical History H/O eye surgery Family History Family History Mother Asthma Bone cancer Heart problem Cerebrovascular accident Sibling Asthma Bone cancer Hypertension Depression Anxiety Heart problem Social History Social History Smoking packs per day: 0.5 Smoking cigarettes per day: 10.0 Smoking status: Current every day smoker Tobacco type: cigarettes Alcohol intake: current Alcohol use details: 2 drinks per day Substance use: never Substance use type: does not use Lack of Transportation: No Lack of Food: Never True Current Housing: I Have Housing Concerned About Future Housing: No Difficulty Paying Gas/Electric Bills: No Difficulty Paying for Meds: No Living arrangements: alone Gender identity (if verbalized by the patient): Male Anes - Eval Final PreProcedure Day of Procedure 04/02/25 06:00 Patient weight: normal Heart: regular rate and rhythm Lungs: normal air movement Airway: Mallampati scale class II Neurological: alert and oriented Last oral intake: 6 hours ASA classification: III Emergent: no Anesthetic plan: proceed Anesthesia type and monitoring: general ETT Results Review: All pre-operative results and documents have been reviewed as part of the pre-operative evaluation. Informed Consent: The patient's anesthetic plan and its attendant risks and benefits were discussed with the patient/family/POA. Questions were solicited and answers provided to the satisfaction of the patient/family/POA.
--- NOTE | 2025-04-02 06:27 | S_PTH ---
PATIENT: Raúl De La Garza LOC: [facility] U#:[id number] AGE/SX: 59/M ROOM: RE04/02/[address]: Lacho Nagy MD : 1965 BED: DIS: 04/02/2025 SPEC #: [id number] RECD: 04/02/25 07:42 STATUS: KENIA REQ #: [id number] FRENCH: 04/02/25 06:[address]: Lacho Nagy DEPT: [facility] Surgical RECD BY: Fabiola Gonsalez ENTERED: 04/02/25 07:42 SP TYPE: Surgical OTHR DR: HEALTH CARE / MEDICAL JOB TITLES PHYSICIAN Praveen Camejo MD Tissues: A - Esophageal Biopsy Procedures: [place] Stain Hematoxylin and Eosin Stain Gross and Microscopic Level 4
--- NOTE | 2025-04-02 06:29 | PM.IMHP2 ---
H&P: HPI History of Present Illness Date/Time: 04/02/25 06:29 Chief Complaint: Food bolus Narrative: Patient was was eating chicken last night and felt he could not swallow any more, not even water. He came to the emergency room around midnight. On 02/28/2025 he had a similar event, requiring EGD and extraction of food bolus. Apparently a lower esophageal ring was evidence during EGD. Review of Systems Review of Systems: All systems reviewed & are unremarkable except as noted in HPI and below PMFSH Past Medical History Medical History Food impaction of esophagus Hypertension GERD (gastroesophageal reflux disease) Allergies Surgical History Surgical History H/O eye surgery Family History Family History Mother Asthma Bone cancer Heart problem Cerebrovascular accident Sibling Asthma Bone cancer Hypertension Depression Anxiety Heart problem Social History Social History Smoking packs per day: 0.5 Smoking cigarettes per day: 10.0 Smoking status: Current every day smoker Tobacco type: cigarettes Alcohol intake: current Alcohol use details: 2 drinks per day Substance use: never Substance use type: does not use Lack of Transportation: No Lack of Food: Never True Current Housing: I Have Housing Concerned About Future Housing: No Difficulty Paying Gas/Electric Bills: No Difficulty Paying for Meds: No Living arrangements: alone Gender identity (if verbalized by the patient): Male Meds Home Medications and Allergies Home Medications ?Medication ?Instructions ?Recorded ?Confirmed ?Type amlodipine 10 mg tablet 10 mg PO DAILY #30 tabs 11/11/24 04/02/25 Rx rosuvastatin 40 mg tablet 40 mg PO DAILY 04/02/25 04/02/25 History sertraline 25 mg tablet 25 mg PO DAILY 04/02/25 04/02/25 History Allergies Allergy/AdvReac Type Severity Reaction Status Date / Time No Known Allergies Allergy Verified 04/02/25 05:31 Vital Signs Vital Signs - 24 hr 04/01/25 21:55 04/01/25 23:04 04/01/25 23:06 Temperature 98.6 F 98.7 F 98.3 F Pulse Rate 96 87 81 Respiratory Rate 18 16 20 Blood Pressure 151/73 H 152/83 H 152/83 H Pulse Oximetry 100 100 100 Oxygen Delivery Room Air 04/01/25 23:16 04/01/25 23:31 04/01/25 23:45 Temperature Pulse Rate Respiratory Rate Blood Pressure 130/77 130/79 135/76 Pulse Oximetry 100 99 99 Oxygen Delivery 04/01/25 23:46 04/02/25 00:00 04/02/25 00:01 Temperature Pulse Rate Respiratory Rate Blood Pressure 129/75 Pulse Oximetry 100 100 99 Oxygen Delivery 04/02/25 00:15 04/02/25 00:23 04/02/25 01:01 Temperature 98.4 F Pulse Rate 76 76 Respiratory Rate 20 16 Blood Pressure 138/73 136/73 Pulse Oximetry 100 100 99 Oxygen Delivery 04/02/25 02:01 04/02/25 03:01 04/02/25 04:01 Temperature 98.2 F 98.3 F 98.3 F Pulse Rate 76 64 76 Respiratory Rate 22 H 16 24 H Blood Pressure 144/76 H 119/60 117/67 Pulse Oximetry 100 100 100 Oxygen Delivery 04/02/25 05:01 04/02/25 05:33 Temperature 98.7 F 98.1 F Pulse Rate 66 63 Respiratory Rate 16 19 Blood Pressure 132/86 144/86 H Pulse Oximetry 100 100 Oxygen Delivery Room Air Exam Const: General: cooperative and healthy appearing Resp: Effort & Inspection: normal respiratory effort and able to speak in complete sentences Auscultation: clear to auscultation bilaterally Cardio: Rate: regular rate Rhythm: regular rhythm GI: Inspection: normal to inspection GI Palp: No No hepatosplenomegaly present Auscultation: normal bowel sounds Rectal Exam: deferred Skin: General skin exam: normal color Psych: Appearance: grossly normal Mental Status: mental status grossly normal Results Labs Labs: Short CBC 04/02/25 Range/Units 00:15 WBC 5.9 (4.5-10.0) K/mm3 Hgb 12.8 L (14.0-18.0) g/dL Hct 39.3 L (42.0-52.0) % Plt Count 247 (150-375) k/mm3 [facility] 04/02/25 00:15 Sodium 137 Potassium 4.0 Chloride 107 Carbon Dioxide 25 BUN 15 Creatinine 0.89 Glucose 109 Calcium 9.6 Liver Function 04/02/25 Range/Units 00:15 Total Bilirubin 0.6 (0.2-1.3) mg/dL AST 31 (17-59) U/L ALT 25 (6-50) U/L Alkaline Phosphatase 54 (38-126) U/L Albumin 4.5 (3.5-5.1) g/dL Assessment and Plan Assessment and plan (1) Food impaction of esophagus: Qualifiers: Encounter type: initial encounter Qualified Code(s): T18.128A - Food in esophagus causing other injury, initial encounter; W44.F3XA - Food entering into or through a natural orifice, initial encounter Code(s): T18.128A - Food in esophagus causing other injury, initial encounter; [id number].F3XA - Food entering into or through a natural orifice, initial encounter Status: Acute Assessment and Plan: The patient is deemed a good candidate for EGD and food bolus extraction. Consent signed. Will proceed. Prior Studies I have reviewed the following patient records and this information was taken into consideration when formulating the assessment and plan.: previous labs, previous ER visits, previous hospitalizations and previous clinic visits
== END 2025-04-02 07:44 | disposition home or self-care (01) ==
LOC: ANHED 04-02 00:54 → ANHSURGERY 04-02 03:10
PROVIDERS: Emergency Provider Student in an Organized Health Care Education/Training Program; Visit Provider Internal Medicine Gastroenterology
PROC: 0DJ08ZZ Inspection of Upper Intestinal Tract, Via Natural or Artificial Opening Endoscopic (ICD-10-PCS; CPT 43239; principal; 2025-04-02 04:55)
DX: T18.128A Food in esophagus causing other injury, initial encounter (principal); K21.00 Gastro-esophageal reflux disease with esophagitis, without bleeding; W44.F3XA Food entering into or through a natural orifice, initial encounter; I10 Essential (primary) hypertension; K21.9 Gastro-esophageal reflux disease without esophagitis; F17.210 Nicotine dependence, cigarettes, uncomplicated; Z98.890 Other specified postprocedural states; Z80.8 Family history of malignant neoplasm of other organs or systems; Z82.49 Family history of ischemic heart disease and other diseases of the circulatory system
CPT/HCPCS: 43239; 36415; 70360; 71045; 80053; 85025; 88305; 88312; 96372; 99285; J0330; J1610; J2003; J2704; J7120